=== PATIENT | male | born 1975 | race Two or more races ===

== ENCOUNTER 2016-03-22 15:51 | Emergency (ER) | payer OTHER ==
[~2016-03-22] VITALS: Ht 170.2 cm; Wt 99.8 kg
[~2016-03-22 15:51] MED LIST: ALPR2TAB2 PO; AMLO10TA2 PO; ASPI-231 PO; BACL10TA PO; BENZ1TAB2 PO; BUSP15TA60 PO; FENO160T8 PO; LORA2TAB10 PO; METO10TA3 PO; OMEP20TA PO; PRED-188 PO
[2016-03-22 16:10] VITALS: BP 182/101
[2016-03-22] MEDS ORDERED: ALPRAZolam 0.5 MG TAB PO ONE (17:15)
[2016-03-22 17:37] LABS: Basophils # (auto) 0 uL; Basophils % (auto) 0.5 % (0.0-2.0); Eosinophils # (auto) 0 uL; Eosinophils % (auto) 0.5 % (0.0-7.0); Hematocrit 41.4 % (41.0-53.0); Hemoglobin 13.9 g/dL (13.5-17.5); Lymphocytes # (auto) 2.2 uL; Mean Corpuscular Hemoglobin 28.9 pg (28.0-32.0); Mean Corpuscular Hgb Conc. 33.4 g/dL (32.0-36.0); Mean Corpuscular Volume 86.6 fL (80.0-100.0); Mean Platelet Volume 7.8 fL (7.4-10.4); Monocytes # (auto) 0.5 uL; Monocytes % (auto) 6.3 % (0.0-12.0); Neutrophils # (auto) 5.3 uL; Neutrophils % (auto) 65.7 % (37.0-80.0); Platelet Count (auto) 285 10^3/uL (140-450); Red Cell Distribution Width 11.6 % (11.6-16.0)
[2016-03-22 17:43] LABS: Albumin 4.2 g/dL (3.4-5.0); BUN/Creatinine Ratio 14.9; Bilirubin, Total 0.2 mg/dL (0.2-1.0); Calcium 9.6 mg/dL (8.5-10.1); Potassium 3.7 mmol/L (3.5-5.1); Total Protein 7.5 g/dL (6.4-8.2)
== END 2016-03-22 19:33 | disposition home or self-care (01) ==
LOC: EDUNIT# 15:51 → ER 16:01
DX: F41.9 Anxiety disorder, unspecified (principal); E11.9 Type 2 diabetes mellitus without complications; E78.5 Hyperlipidemia, unspecified; I10 Essential (primary) hypertension; F20.9 Schizophrenia, unspecified; F17.210 Nicotine dependence, cigarettes, uncomplicated; F12.10 Cannabis abuse, uncomplicated; Z79.82 Long term (current) use of aspirin
CPT/HCPCS: 36415; 80053; 84484; 85025; 93005

== ENCOUNTER 2016-06-08 15:33 | Observation (INO) | payer OTHER ==
[~2016-06-08] VITALS: Ht 162.6 cm; Wt 99.8 kg
[2016-06-08 17:10] LABS: Basophils # (auto) 0 uL; Basophils % (auto) 0.3 % (0.0-2.0); Eosinophils # (auto) 0.3 uL; Eosinophils % (auto) 3.9 % (0.0-7.0); Hematocrit 42.2 % (41.0-53.0); Hemoglobin 14.2 g/dL (13.5-17.5); Lymphocytes # (auto) 2.2 uL; Lymphocytes % (auto) 31.1 % (10.0-50.0); Mean Corpuscular Hemoglobin 28.4 pg (28.0-32.0); Mean Corpuscular Hgb Conc. 33.7 g/dL (32.0-36.0); Mean Corpuscular Volume 84.2 fL (80.0-100.0); Mean Platelet Volume 8.9 fL (7.4-10.4); Monocytes # (auto) 0.3 uL; Monocytes % (auto) 4.3 % (0.0-12.0); Neutrophils # (auto) 4.2 uL; Neutrophils % (auto) 60.4 % (37.0-80.0); Platelet Count (auto) 248 10^3/uL (140-450); Red Cell Distribution Width 13.6 % (11.6-16.0); White Blood Cell 6.9 10^3/uL (4.4-10.8)
[2016-06-08 17:15] LABS: Albumin 3.9 g/dL (3.4-5.0); BUN/Creatinine Ratio 10.3; Bilirubin, Total 0.2 mg/dL (0.2-1.0); Calcium 8.8 mg/dL (8.5-10.1)
[2016-06-08] MEDS ORDERED: LEVETIRACETAM 500 MG TAB PO ONE (22:00)
[2016-06-08] MEDS ORDERED: LEVE500T22 PO (22:10)
[2016-06-08 22:17] VITALS: BP 147/94
== END 2016-06-08 22:22 | disposition home or self-care (01) | DRG 101 ==
LOC: EDBD 15:33 → ER 15:33 → OVERFLOW 20:12 → ER 22:21
PROVIDERS: ADMIT Family Medicine; ATTEND Family Medicine
DX: G40.909 Epilepsy, unspecified, not intractable, without status epilepticus (principal); R79.89 Other specified abnormal findings of blood chemistry; F10.10 Alcohol abuse, uncomplicated; R73.9 Hyperglycemia, unspecified; I67.2 Cerebral atherosclerosis; F17.210 Nicotine dependence, cigarettes, uncomplicated; Z82.49 Family history of ischemic heart disease and other diseases of the circulatory system; Z83.0 Family history of human immunodeficiency virus [HIV] disease; F20.9 Schizophrenia, unspecified; I10 Essential (primary) hypertension; K21.9 Gastro-esophageal reflux disease without esophagitis
CPT/HCPCS: 36415; 70450; 71010; 80053; 82542; 82962; 85025; 93005; 99285; G0378

== ENCOUNTER 2016-06-19 16:56 | Emergency (ER) | payer OTHER ==
[~2016-06-19] VITALS: Ht 162.6 cm; Wt 90.7 kg
[~2016-06-19 16:56] MED LIST changes: +LEVE500T22 PO
[2016-06-19 17:50] LABS: Basophils # (auto) 0.1 uL; Basophils % (auto) 0.6 % (0.0-2.0); Eosinophils # (auto) 0.2 uL; Eosinophils % (auto) 2.5 % (0.0-7.0); Hematocrit 39.2 % (41.0-53.0); Hemoglobin 13.3 g/dL (13.5-17.5); Lymphocytes # (auto) 3.1 uL; Lymphocytes % (auto) 31.3 % (10.0-50.0); Mean Corpuscular Hemoglobin 28.2 pg (28.0-32.0); Mean Corpuscular Hgb Conc. 33.9 g/dL (32.0-36.0); Mean Platelet Volume 8.3 fL (7.4-10.4); Monocytes # (auto) 0.5 uL; Monocytes % (auto) 4.8 % (0.0-12.0); Neutrophils % (auto) 60.8 % (37.0-80.0); Platelet Count (auto) 226 10^3/uL (140-450); Red Cell Distribution Width 13.1 % (11.6-16.0); White Blood Cell 9.9 10^3/uL (4.4-10.8)
[2016-06-19 18:23] LABS: Albumin 3.7 g/dL (3.4-5.0); Alkaline Phosphatase 95 U/L (45-117); Anion Gap 10 (5-15); Aspartate Aminotransferase 18 U/L (15-37); BUN/Creatinine Ratio 11.9; Bilirubin, Total 0.2 mg/dL (0.2-1.0); Blood Urea Nitrogen 14 mg/dL (7-18); Calcium 8.8 mg/dL (8.5-10.1); Carbon Dioxide 24 mmol/L (21-32); Chloride 105 mmol/L (98-107); GFR African American 87 mL/min; GFR Non-African American 72 mL/min; Glucose 106 mg/dL (74-106); Potassium 3.9 mmol/L (3.5-5.1); Sodium 139 mmol/L (136-145); Total Protein 6.8 g/dL (6.4-8.2)
[2016-06-19] MEDS ORDERED: LORazepam 2MG/ML-1ML VIAL IV ONE (19:30)
[2016-06-19] MEDS ORDERED: cloNIDine HCL 0.1 MG TAB ONE (19:30)
[2016-06-19] MEDS ORDERED: cloNIDine HCL 0.1 MG TAB PO ONE (19:45)
[2016-06-19 22:26] VITALS: BP 154/94
== END 2016-06-19 23:38 | disposition home or self-care (01) ==
LOC: ER 16:56
DX: F41.9 Anxiety disorder, unspecified (principal); R51 Headache; I10 Essential (primary) hypertension; E78.5 Hyperlipidemia, unspecified; K21.9 Gastro-esophageal reflux disease without esophagitis; F17.210 Nicotine dependence, cigarettes, uncomplicated; F12.10 Cannabis abuse, uncomplicated
CPT/HCPCS: 36415; 71020; 80053; 80320; 84484; 85025; 85379; 93005; 96374; 99285; J2060

== ENCOUNTER 2016-10-10 19:10 | Inpatient (IN) | payer OTHER ==
[~2016-10-10] VITALS: Ht 162.6 cm; Wt 83.4 kg
[2016-10-10 19:50] LABS: Basophils # (auto) 0 uL; Basophils % (auto) 0.3 % (0.0-2.0); CONDITION Y; Eosinophils # (auto) 0.2 uL; Eosinophils % (auto) 1.6 % (0.0-7.0); Hematocrit 42.5 % (41.0-53.0); Hemoglobin 14.7 g/dL (13.5-17.5); Lymphocytes # (auto) 4.2 uL; Mean Corpuscular Hemoglobin 30.4 pg (28.0-32.0); Mean Corpuscular Hgb Conc. 34.6 g/dL (32.0-36.0); Mean Corpuscular Volume 87.9 fL (80.0-100.0); Mean Platelet Volume 8.3 fL (7.4-10.4); Monocytes # (auto) 0.9 uL; Neutrophils # (auto) 7.3 uL; Neutrophils % (auto) 58.1 % (37.0-80.0); Platelet Count (auto) 355 10^3/uL (140-450); Red Cell Distribution Width 13.4 % (11.6-16.0); White Blood Cell 12.6 10^3/uL (4.4-10.8)
[2016-10-10 20:06] LABS: Albumin 3.9 g/dL (3.4-5.0); Alkaline Phosphatase 71 U/L (45-117); Anion Gap 9 (5-15); Aspartate Aminotransferase 10 U/L (15-37); BUN/Creatinine Ratio 15.6; Bilirubin, Total 0.2 mg/dL (0.2-1.0); Blood Urea Nitrogen 26 mg/dL (7-18); Calcium 8.7 mg/dL (8.5-10.1); Carbon Dioxide 22 mmol/L (21-32); Chloride 102 mmol/L (98-107); GFR African American 58 mL/min; GFR Non-African American 48 mL/min; Glucose 108 mg/dL (74-106); Magnesium 1.9 mg/dL (1.6-2.6); Potassium 4.4 mmol/L (3.5-5.1); Sodium 133 mmol/L (136-145); Total Protein 7.2 g/dL (6.4-8.2)
[2016-10-10 20:09] LABS: B-Type Natriuretic Peptide 153.78 pg/mL (0-100)
[2016-10-10 20:10] LABS: Temperature: 23.5 C (20.0-25.0)
[2016-10-11] MEDS ORDERED: NITROGLYCERIN 2% OINT 1GM PKG TD ONE (00:45)
[2016-10-11] MEDS ORDERED: ASPirin 81 mg TAB PO ONE (00:45)
[2016-10-11 01:36] LABS: Urine Bilirubin Negative (Negative); Urine Blood Negative /uL (Negative); Urine Color Yellow (Yellow); Urine Glucose Normal (Normal); Urine Ketone Negative (Negative); Urine Nitrite Negative (Negative); Urine RBC <1 /hpf (0 - 3); Urine Urobilinogen Normal (Negative)
[2016-10-11] MEDS ORDERED: FUROSEMIDE 20 MG/2 ML VIAL IV ONE (03:30)
[2016-10-11] MEDS ORDERED: ALPRAZolam 0.5 MG TAB PO PRN (06:00)
[2016-10-11] MEDS ORDERED: ACETAMINOPHEN 325 MG TAB PO PRN (06:00)
[2016-10-11] MEDS ORDERED: ONDANSETRON HCL 4 MG/2 ML VIAL IV PRN (06:00)
[2016-10-11] MEDS ORDERED: NITROGLYCERIN 0.4 MG SL TAB SL PRN (06:00)
[2016-10-11] MEDS ORDERED: MORPHINE SULF INJ 2 MG/ML SYRINGE 1ML IV PRN (06:00)
[2016-10-11] MEDS ORDERED: HYDROcodone-ACET 5/325MG TAB PO PRN (06:00)
[2016-10-11 07:14] LABS: Cholesterol 212 mg/dL (< 200); HDL Cholesterol 27 mg/dL (40-59); LDL Cholesterol 122 mg/dL (< 100); Triglycerides 381 mg/dL (< 150)
[2016-10-11 07:34] VITALS: BP 134/80
[2016-10-11] MEDS ORDERED: ASPirin 81 mg TAB PO SCH (10:00)
[2016-10-11] MEDS ORDERED: amLODIPine BESYLATE 5 MG TAB PO SCH (10:00)
[2016-10-11] MEDS ORDERED: LEVETIRACETAM 500 MG TAB PO SCH (10:00)
[2016-10-11] MEDS ORDERED: FAMOTIDINE 20 MG TAB PO SCH (10:00)
[2016-10-11] MEDS ORDERED: FENOFIBRATE 160MG PO SCH (10:00)
[2016-10-11] MEDS ORDERED: ENOXAPARIN SOD 40 MG/0.4 ML SYRINGE SC SCH (10:00)
[2016-10-11] MEDS ORDERED: FENOFIBRATE 160 MG PO SCH (10:00)
== END 2016-10-11 18:45 | disposition home or self-care (01) | DRG 313 ==
LOC: ER 19:14 → TELE 19:15 → TELE-E-ADS 10-11 08:20 → TELE-EAST 10-11 16:00
PROVIDERS: ADMIT Nurse Practitioner; ATTEND Internal Medicine Geriatric Medicine
DX: R07.89 Other chest pain (principal); I13.0 Hypertensive heart and chronic kidney disease with heart failure and stage 1 through stage 4 chronic kidney disease, or unspecified chronic kidney disease; E66.9 Obesity, unspecified; E78.5 Hyperlipidemia, unspecified; E88.81 Metabolic syndrome and other insulin resistance; F12.90 Cannabis use, unspecified, uncomplicated; F17.210 Nicotine dependence, cigarettes, uncomplicated; F20.9 Schizophrenia, unspecified; I50.9 Heart failure, unspecified; K21.9 Gastro-esophageal reflux disease without esophagitis; N18.3 Chronic kidney disease, stage 3 (moderate); F41.9 Anxiety disorder, unspecified; Z83.0 Family history of human immunodeficiency virus [HIV] disease; Z83.3 Family history of diabetes mellitus; Z82.49 Family history of ischemic heart disease and other diseases of the circulatory system; Z79.899 Other long term (current) drug therapy; Z79.82 Long term (current) use of aspirin; Z68.31 Body mass index [BMI] 31.0-31.9, adult
CPT/HCPCS: 36415; 71010; 80053; 80061; 80307; 81001; 83735; 83880; 84484; 85025; 85379; 93005; 93017; 93306; 96374; J2405

== ENCOUNTER 2016-10-22 17:32 | Inpatient (IN) | payer OTHER ==
[~2016-10-22] VITALS: Ht 157.5 cm; Wt 81.6 kg
[2016-10-22 18:38] LABS: Basophils # (auto) 0 uL; Basophils % (auto) 0.5 % (0.0-2.0); CONDITION Y; Eosinophils # (auto) 0.2 uL; Eosinophils % (auto) 2.4 % (0.0-7.0); Hematocrit 37.8 % (41.0-53.0); Hemoglobin 13.3 g/dL (13.5-17.5); Lymphocytes # (auto) 3.8 uL; Mean Corpuscular Hemoglobin 30.1 pg (28.0-32.0); Mean Corpuscular Volume 85.9 fL (80.0-100.0); Mean Platelet Volume 8.1 fL (7.4-10.4); Monocytes # (auto) 0.7 uL; Monocytes % (auto) 6.8 % (0.0-12.0); Neutrophils # (auto) 5.4 uL; Neutrophils % (auto) 53.3 % (37.0-80.0); Platelet Count (auto) 254 10^3/uL (140-450); Red Cell Distribution Width 13.2 % (11.6-16.0); White Blood Cell 10.2 10^3/uL (4.4-10.8)
[2016-10-22 18:42] LABS: Urine RBC None Seen /hpf (0 - 3)
[2016-10-22 18:59] LABS: Urine Bilirubin Negative (Negative); Urine Blood Negative /uL (Negative); Urine Color Colorless (Yellow); Urine Glucose Normal (Normal); Urine Ketone Negative (Negative); Urine Nitrite Negative (Negative); Urine Urobilinogen Normal (Negative)
[2016-10-22 19:00] LABS: Albumin 3.5 g/dL (3.4-5.0); Anion Gap 10 (5-15); Aspartate Aminotransferase 12 U/L (15-37); BUN/Creatinine Ratio 8.7; Blood Urea Nitrogen 9 mg/dL (7-18); Carbon Dioxide 22 mmol/L (21-32); Chloride 95 mmol/L (98-107); GFR African American 101 mL/min; GFR Non-African American 84 mL/min; Glucose 95 mg/dL (74-106); Potassium 3.1 mmol/L (3.5-5.1); Sodium 127 mmol/L (136-145)
[2016-10-22 19:05] LABS: Alkaline Phosphatase 68 U/L (45-117); Bilirubin, Total 0.2 mg/dL (0.2-1.0); Total Protein 6.3 g/dL (6.4-8.2)
[2016-10-22] MEDS ORDERED: ASPirin 81 mg TAB PO ONE (19:45)
[2016-10-22] MEDS ORDERED: ONDANSETRON HCL 4 MG/2 ML VIAL IV ONE (20:15)
[2016-10-22] MEDS ORDERED: POTASSIUM CHL 20 Meq TABLET PO ONE (20:15)
[2016-10-22 20:39] LABS: INR 1.03 (0.9-1.15); Partial Thromboplastin Time 27.8 sec (22.64-33.71); Prothrombin Time 11.2 sec (9.37-12.3)
[2016-10-23] MEDS ORDERED: ONDANSETRON HCL 4 MG/2 ML VIAL IV PRN
[2016-10-23] MEDS ORDERED: TEMAZEPAM 15 MG CAP PO PRN
[2016-10-23] MEDS ORDERED: ACETAMINOPHEN 325 MG TAB PO PRN
[2016-10-23] MEDS ORDERED: MORPHINE SULF INJ 2 MG/ML SYRINGE 1ML IV PRN
[2016-10-23] MEDS ORDERED: NITROGLYCERIN 0.4 MG SL TAB SL PRN
[2016-10-23 00:45] VITALS: BP 133/70
[2016-10-23] MEDS: HYDROcodone-ACET 5/325MG TAB PO PRN ×2 (01:25→05:21)
[2016-10-23 05:00] VITALS: BP 134/85
[2016-10-23 05:28] LABS: Basophils # (auto) 0 uL; Basophils % (auto) 0.3 % (0.0-2.0); CONDITION Y; Eosinophils # (auto) 0.2 uL; Eosinophils % (auto) 2.7 % (0.0-7.0); Hematocrit 36.9 % (41.0-53.0); Hemoglobin 13.1 g/dL (13.5-17.5); Lymphocytes # (auto) 2.6 uL; Lymphocytes % (auto) 39.9 % (10.0-50.0); Mean Corpuscular Hemoglobin 30.3 pg (28.0-32.0); Mean Corpuscular Hgb Conc. 35.4 g/dL (32.0-36.0); Mean Corpuscular Volume 85.6 fL (80.0-100.0); Mean Platelet Volume 8.2 fL (7.4-10.4); Monocytes # (auto) 0.5 uL; Monocytes % (auto) 7.4 % (0.0-12.0); Neutrophils # (auto) 3.3 uL; Neutrophils % (auto) 49.7 % (37.0-80.0); Platelet Count (auto) 250 10^3/uL (140-450); Red Cell Distribution Width 13.1 % (11.6-16.0); White Blood Cell 6.6 10^3/uL (4.4-10.8)
[2016-10-23 06:00] LABS: Chloride 104 mmol/L (98-107); Potassium 3.7 mmol/L (3.5-5.1); Sodium 136 mmol/L (136-145)
[2016-10-23 06:09] LABS: Albumin 3.5 g/dL (3.4-5.0); Anion Gap 8 (5-15); Aspartate Aminotransferase 13 U/L (15-37); BUN/Creatinine Ratio 8.4; Blood Urea Nitrogen 10 mg/dL (7-18); Calcium 8.5 mg/dL (8.5-10.1); Carbon Dioxide 24 mmol/L (21-32); GFR African American 86 mL/min; GFR Non-African American 71 mL/min; Glucose 78 mg/dL (74-106)
[2016-10-23 06:16] LABS: Alkaline Phosphatase 63 U/L (45-117); Bilirubin, Total 0.2 mg/dL (0.2-1.0); Total Protein 6.2 g/dL (6.4-8.2)
[2016-10-23 09:22] VITALS: BP 126/75
[2016-10-23] MEDS ORDERED: LEVETIRACETAM 500 MG TAB PO SCH (10:00)
[2016-10-23] MEDS ORDERED: ENOXAPARIN SOD 40 MG/0.4 ML SYRINGE SC SCH (10:00)
[2016-10-23] MEDS ORDERED: ASPirin 81 mg TAB PO SCH (10:00)
[2016-10-23] MEDS ORDERED: predniSONE 20 MG TAB PO SCH (10:00)
[2016-10-23] MEDS ORDERED: FAMOTIDINE 20 MG TAB PO SCH (10:00)
[2016-10-23] MEDS ORDERED: busPIRone HCL 10 MG TAB PO SCH (10:00)
[2016-10-23] MEDS ORDERED: amLODIPine BESYLATE 5 MG TAB PO SCH (10:00)
[2016-10-23 10:40] VITALS: BP 126/75
== END 2016-10-23 11:45 | disposition home or self-care (01) | DRG 313 ==
LOC: ER 17:34 → TELE 17:35 → TELE-WESTW 10-23 00:19
PROVIDERS: ADMIT Nurse Practitioner; ATTEND Nurse Practitioner
DX: R07.89 Other chest pain (principal); E87.1 Hypo-osmolality and hyponatremia; I10 Essential (primary) hypertension; E66.9 Obesity, unspecified; E78.5 Hyperlipidemia, unspecified; E87.6 Hypokalemia; F12.90 Cannabis use, unspecified, uncomplicated; F17.210 Nicotine dependence, cigarettes, uncomplicated; F20.9 Schizophrenia, unspecified; F32.9 Major depressive disorder, single episode, unspecified; F41.9 Anxiety disorder, unspecified; K21.9 Gastro-esophageal reflux disease without esophagitis; Z82.49 Family history of ischemic heart disease and other diseases of the circulatory system; Z83.0 Family history of human immunodeficiency virus [HIV] disease; Z80.9 Family history of malignant neoplasm, unspecified; Z83.3 Family history of diabetes mellitus; Z79.82 Long term (current) use of aspirin; Z79.899 Other long term (current) drug therapy; Z68.32 Body mass index [BMI] 32.0-32.9, adult
CPT/HCPCS: 36415; 71010; 80053; 80307; 81001; 83735; 84443; 84484; 85025; 85379; 85610; 85730; 94761; 96372; 96374; J2405

== ENCOUNTER 2016-12-02 03:26 | Emergency (ER) | payer OTHER ==
[~2016-12-02] VITALS: Ht 167.6 cm; Wt 81.6 kg
[2016-12-02 04:18] LABS: Basophils # (auto) 0.1 uL; Basophils % (auto) 0.5 % (0.0-2.0); Eosinophils # (auto) 0.1 uL; Eosinophils % (auto) 0.8 % (0.0-7.0); Hemoglobin 15.5 g/dL (13.5-17.5); Lymphocytes # (auto) 2.9 uL; Lymphocytes % (auto) 29.6 % (10.0-50.0); Mean Corpuscular Hgb Conc. 36.1 g/dL (32.0-36.0); Mean Corpuscular Volume 83.1 fL (80.0-100.0); Mean Platelet Volume 7.4 fL (6.9-10.8); Monocytes # (auto) 0.5 uL; Monocytes % (auto) 5.2 % (0.0-12.0); Neutrophils # (auto) 6.2 uL; Neutrophils % (auto) 63.9 % (37.0-80.0); Platelet Count (auto) 296 10^3/uL (140-450); Red Cell Distribution Width 13.2 % (11.8-14.3); White Blood Cell 9.7 10^3/uL (4.4-10.8)
[2016-12-02 04:32] LABS: Acetaminophen < 2.0 ug/mL (10-30); Salicylate < 1.7 mg/dL (2.8-20.0)
[2016-12-02 04:34] LABS: Albumin 3.8 g/dL (3.4-5.0); Anion Gap 11 (5-15); Aspartate Aminotransferase 15 U/L (15-37); BUN/Creatinine Ratio 10.4; Blood Urea Nitrogen 12 mg/dL (7-18); Calcium 9.3 mg/dL (8.5-10.1); Carbon Dioxide 23 mmol/L (21-32); Chloride 104 mmol/L (98-107); GFR African American 89 mL/min; GFR Non-African American 74 mL/min; Glucose 132 mg/dL (74-106); Potassium 3.7 mmol/L (3.5-5.1); Sodium 138 mmol/L (136-145)
[2016-12-02 04:37] LABS: Alkaline Phosphatase 88 U/L (45-117); Bilirubin, Total 0.3 mg/dL (0.2-1.0); Total Protein 6.6 g/dL (6.4-8.2)
[2016-12-02] MEDS ORDERED: SODIUM CHLORIDE 0.9% 1,000 ML IV ONE (04:45)
[2016-12-02] MEDS ORDERED: ALUM & MAG HYDROX-SIMETH LIQ(MAALOX) 30 ML PO ONE (04:45)
[2016-12-02] MEDS ORDERED: FAMOTIDINE (10MG/ML) 2ML VL IV ONE (04:45)
[2016-12-02 05:32] LABS: Urine Bilirubin Negative (Negative); Urine Blood Negative /uL (Negative); Urine Glucose Normal (Normal); Urine Ketone Negative (Negative); Urine Nitrite Negative (Negative); Urine RBC <1 /hpf (0 - 3); Urine Squamous Epithelial Cell FEW /hpf (<5); Urine Urobilinogen Normal (Negative); Urine pH 6.5 (5.0-8.0)
[2016-12-02 05:33] LABS: Urine Color Straw (Yellow)
[2016-12-02 06:36] VITALS: BP 137/74
== END 2016-12-02 07:00 | disposition home or self-care (01) ==
LOC: EDBD 03:26 → ER 03:29
DX: K29.20 Alcoholic gastritis without bleeding (principal); I10 Essential (primary) hypertension; E78.5 Hyperlipidemia, unspecified; F17.210 Nicotine dependence, cigarettes, uncomplicated; F12.10 Cannabis abuse, uncomplicated; Z79.899 Other long term (current) drug therapy
CPT/HCPCS: 36415; 80053; 80307; 80320; 80329; 81001; 83690; 85025; 93005; 96361; 96374; 99285; J3490; J7030

== ENCOUNTER 2016-12-16 12:46 | Emergency (ER) | payer OTHER ==
[~2016-12-16] VITALS: Ht 160 cm; Wt 88.0 kg
[2016-12-16 13:53] LABS: Basophils # (auto) 0 uL; Basophils % (auto) 0.4 % (0.0-2.0); Eosinophils # (auto) 0.1 uL; Eosinophils % (auto) 1.1 % (0.0-7.0); Hematocrit 40.5 % (41.0-53.0); Hemoglobin 14.4 g/dL (13.5-17.5); Lymphocytes # (auto) 3.2 uL; Lymphocytes % (auto) 30.8 % (10.0-50.0); Mean Corpuscular Hemoglobin 29.6 pg (28.0-32.0); Mean Corpuscular Hgb Conc. 35.5 g/dL (32.0-36.0); Mean Corpuscular Volume 83.5 fL (80.0-100.0); Mean Platelet Volume 7.4 fL (6.9-10.8); Monocytes # (auto) 0.6 uL; Monocytes % (auto) 6.1 % (0.0-12.0); Neutrophils # (auto) 6.4 uL; Neutrophils % (auto) 61.6 % (37.0-80.0); Nucleated Red Blood Cells % 0.9 %; Platelet Count (auto) 296 10^3/uL (140-450); White Blood Cell 10.5 10^3/uL (4.4-10.8)
[2016-12-16 14:46] LABS: Albumin 3.8 g/dL (3.4-5.0); Anion Gap 9 (5-15); Aspartate Aminotransferase 14 U/L (15-37); Blood Urea Nitrogen 15 mg/dL (7-18); Carbon Dioxide 25 mmol/L (21-32); Chloride 100 mmol/L (98-107); GFR African American 105 mL/min; GFR Non-African American 87 mL/min; Glucose 134 mg/dL (74-106); Sodium 134 mmol/L (136-145)
[2016-12-16 14:52] LABS: Alkaline Phosphatase 72 U/L (45-117); Bilirubin, Total 0.2 mg/dL (0.2-1.0); Total Protein 6.7 g/dL (6.4-8.2)
[2016-12-16 19:28] VITALS: BP 112/64
== END 2016-12-16 19:38 | disposition home or self-care (01) ==
LOC: ER 12:46
DX: R07.89 Other chest pain (principal); J02.9 Acute pharyngitis, unspecified; K21.9 Gastro-esophageal reflux disease without esophagitis; E78.5 Hyperlipidemia, unspecified; F31.9 Bipolar disorder, unspecified; F41.9 Anxiety disorder, unspecified; I10 Essential (primary) hypertension; F17.210 Nicotine dependence, cigarettes, uncomplicated; Z79.899 Other long term (current) drug therapy; Z79.82 Long term (current) use of aspirin
CPT/HCPCS: 36415; 71020; 80053; 84484; 85025; 93005

== ENCOUNTER 2016-12-22 19:25 | Emergency (ER) | payer OTHER ==
[~2016-12-22] VITALS: Ht 157.5 cm; Wt 63.5 kg
[2016-12-22 20:30] LABS: Basophils # (auto) 0.1 uL; Basophils % (auto) 0.9 % (0.0-2.0); Eosinophils # (auto) 0.2 uL; Eosinophils % (auto) 3.2 % (0.0-7.0); Hematocrit 38.9 % (41.0-53.0); Hemoglobin 13.9 g/dL (13.5-17.5); Lymphocytes # (auto) 2.9 uL; Lymphocytes % (auto) 38.4 % (10.0-50.0); Mean Corpuscular Hemoglobin 29.6 pg (28.0-32.0); Mean Corpuscular Hgb Conc. 35.8 g/dL (32.0-36.0); Mean Corpuscular Volume 82.7 fL (80.0-100.0); Mean Platelet Volume 6.6 fL (6.9-10.8); Monocytes # (auto) 0.5 uL; Monocytes % (auto) 6.7 % (0.0-12.0); Neutrophils # (auto) 3.8 uL; Neutrophils % (auto) 50.8 % (37.0-80.0); Platelet Count (auto) 263 10^3/uL (140-450); Red Cell Distribution Width 13.9 % (11.8-14.3); White Blood Cell 7.5 10^3/uL (4.4-10.8)
[2016-12-22 20:53] LABS: Albumin 3.8 g/dL (3.4-5.0); BUN/Creatinine Ratio 12.4; Bilirubin, Total 0.2 mg/dL (0.2-1.0); Calcium 8.5 mg/dL (8.5-10.1); Total Protein 7.2 g/dL (6.4-8.2)
[2016-12-22 20:59] LABS: Potassium 2.9 mmol/L (3.5-5.1)
[2016-12-23 04:10] VITALS: BP 147/98
[2016-12-23 04:43] LABS: Albumin 3.7 g/dL (3.4-5.0); BUN/Creatinine Ratio 11.4; Potassium 3.9 mmol/L (3.5-5.1)
[2016-12-23 04:45] LABS: Bilirubin, Total 0.4 mg/dL (0.2-1.0); Total Protein 6.8 g/dL (6.4-8.2)
== END 2016-12-23 05:10 | disposition home or self-care (01) ==
LOC: ER 19:34
DX: R51 Headache (principal); E87.6 Hypokalemia; E87.1 Hypo-osmolality and hyponatremia
CPT/HCPCS: 36415; 80053; 85025

== ENCOUNTER 2017-01-14 20:43 | Emergency (ER) | payer OTHER ==
[~2017-01-14] VITALS: Ht 162.6 cm; Wt 117.9 kg
[2017-01-14 21:26] LABS: Basophils # (auto) 0 uL; Basophils % (auto) 0.2 % (0.0-2.0); Eosinophils # (auto) 0 uL; Eosinophils % (auto) 0.2 % (0.0-7.0); Hematocrit 38.8 % (41.0-53.0); Hemoglobin 13.5 g/dL (13.5-17.5); Lymphocytes # (auto) 3.9 uL; Lymphocytes % (auto) 27.9 % (10.0-50.0); Mean Corpuscular Hgb Conc. 34.8 g/dL (32.0-36.0); Mean Corpuscular Volume 86.1 fL (80.0-100.0); Monocytes % (auto) 7.3 % (0.0-12.0); Neutrophils % (auto) 64.4 % (37.0-80.0); Platelet Count (auto) 272 10^3/uL (140-450); Red Blood Cells 4.51 10^6/uL (4.5-5.90); Red Cell Distribution Width 14.2 % (11.8-14.3); White Blood Cell 14.1 10^3/uL (4.4-10.8)
[2017-01-14 21:36] LABS: INR 1.03 (0.9-1.15); Partial Thromboplastin Time 23.8 sec (22.64-33.71); Prothrombin Time 11.2 sec (9.37-12.3)
[2017-01-14 21:37] LABS: Alanine Aminotransferase 34 U/L (16-61); Albumin 3.7 g/dL (3.4-5.0); Anion Gap 11 (5-15); Aspartate Aminotransferase 15 U/L (15-37); BUN/Creatinine Ratio 12.5; Blood Urea Nitrogen 17 mg/dL (7-18); Calcium 8.8 mg/dL (8.5-10.1); Carbon Dioxide 19 mmol/L (21-32); Chloride 97 mmol/L (98-107); GFR African American 74 mL/min; GFR Non-African American 61 mL/min; Glucose 166 mg/dL (74-106); Potassium 3.6 mmol/L (3.5-5.1); Sodium 127 mmol/L (136-145)
[2017-01-14 21:41] LABS: Alkaline Phosphatase 67 U/L (45-117); Bilirubin, Total 0.2 mg/dL (0.2-1.0); Total Protein 6.8 g/dL (6.4-8.2)
[2017-01-15 07:37] VITALS: BP 157/90
[2017-01-15] MEDS ORDERED: FLUORESCEIN SOD 1 MG TEST STRIP EACHEYE ONE (08:00)
[2017-01-15] MEDS ORDERED: TETRACAINE HCL 0.5% OPTH(EYE) SOLN 4ML EACHEYE ONE (08:00)
== END 2017-01-15 09:59 | disposition home or self-care (01) ==
LOC: ER 20:43 → OVERFLOW 20:44 → UNDOADMIN 20:44 → ER 01-15 09:59
DX: R07.89 Other chest pain (principal); H10.213 Acute toxic conjunctivitis, bilateral; E11.9 Type 2 diabetes mellitus without complications; G40.909 Epilepsy, unspecified, not intractable, without status epilepticus; F17.210 Nicotine dependence, cigarettes, uncomplicated; F12.10 Cannabis abuse, uncomplicated; K21.9 Gastro-esophageal reflux disease without esophagitis; E78.5 Hyperlipidemia, unspecified; I10 Essential (primary) hypertension; Z79.899 Other long term (current) drug therapy
CPT/HCPCS: 36415; 71020; 80053; 83880; 84484; 85025; 85610; 85730; 93005

== ENCOUNTER 2017-01-30 21:08 | Emergency (ER) | payer OTHER ==
[~2017-01-30] VITALS: Ht 157.5 cm; Wt 90.7 kg
[2017-01-30 21:33] VITALS: BP 169/100
[2017-01-30 21:53] LABS: Basophils # (auto) 0.1 uL; Basophils % (auto) 0.8 % (0.0-2.0); Eosinophils # (auto) 0.2 uL; Eosinophils % (auto) 2.4 % (0.0-7.0); Hematocrit 37.3 % (41.0-53.0); Hemoglobin 13.2 g/dL (13.5-17.5); Lymphocytes # (auto) 3.6 uL; Lymphocytes % (auto) 39.1 % (10.0-50.0); Mean Corpuscular Hemoglobin 30.3 pg (28.0-32.0); Mean Corpuscular Hgb Conc. 35.3 g/dL (32.0-36.0); Mean Corpuscular Volume 85.8 fL (80.0-100.0); Monocytes # (auto) 0.7 uL; Monocytes % (auto) 7.6 % (0.0-12.0); Neutrophils # (auto) 4.6 uL; Neutrophils % (auto) 50.1 % (37.0-80.0); Nucleated Red Blood Cells % 0.1 %; Platelet Count (auto) 255 10^3/uL (140-450); Red Cell Distribution Width 13.7 % (11.8-14.3); White Blood Cell 9.1 10^3/uL (4.4-10.8)
[2017-01-30 22:07] LABS: Acetaminophen < 2.0 ug/mL (10-30); Salicylate 15.1 mg/dL (2.8-20.0)
[2017-01-30 22:11] LABS: Amylase 42 U/L (25-115); Magnesium 1.7 mg/dL (1.6-2.6)
[2017-01-30 23:00] LABS: Urine RBC None Seen /hpf (0 - 3)
[2017-01-30 23:14] LABS: Urine Bilirubin Negative (Negative); Urine Blood Negative /uL (Negative); Urine Glucose Normal (Normal); Urine Ketone Negative (Negative); Urine Nitrite Negative (Negative); Urine Urobilinogen Normal (Negative); Urine pH 5.5 (5.0-8.0)
[2017-01-30 23:19] LABS: Urine Color Straw (Yellow)
[2017-01-31] MEDS ORDERED: FAMOTIDINE (10MG/ML) 2ML VL IV ONE (01:00)
[2017-01-31] MEDS ORDERED: LORazepam 2MG/ML-1ML VIAL IV ONE (01:00)
[2017-01-31] MEDS ORDERED: cloNIDine HCL 0.1 MG TAB ONE (01:07)
[2017-01-31] MEDS ORDERED: cloNIDine HCL 0.1 MG TAB PO ONE (01:15)
== END 2017-01-31 01:28 | disposition home or self-care (01) ==
LOC: ER 21:09
DX: K29.00 Acute gastritis without bleeding (principal); F41.9 Anxiety disorder, unspecified; K21.9 Gastro-esophageal reflux disease without esophagitis; E78.5 Hyperlipidemia, unspecified; I10 Essential (primary) hypertension; F17.210 Nicotine dependence, cigarettes, uncomplicated; Z79.899 Other long term (current) drug therapy; Z79.82 Long term (current) use of aspirin
CPT/HCPCS: 36415; 71010; 74176; 80307; 80320; 80329; 81001; 82150; 83690; 83735; 84484; 85025; 93005; 94761; 96374; 96375; 99285; J3490

== ENCOUNTER → 2017-01-31 20:12 | Emergency (ER) | payer OTHER ==
[~2017-01-31] VITALS: Ht 157.5 cm; Wt 86.2 kg
[~2017-01-31 20:12] MED LIST changes: +AMMONIA 0.33 ML INHALANT IN ONE; +LORazepam 2MG/ML-1ML VIAL ONE; +SODIUM CHLORIDE 0.9% 1,000 ML IV ONE
[2017-01-31 20:59] LABS: Basophils # (auto) 0.1 uL; Basophils % (auto) 0.7 % (0.0-2.0); Eosinophils # (auto) 0.1 uL; Eosinophils % (auto) 1.7 % (0.0-7.0); Hematocrit 39.9 % (41.0-53.0); Hemoglobin 13.9 g/dL (13.5-17.5); Lymphocytes # (auto) 2.5 uL; Lymphocytes % (auto) 33.4 % (10.0-50.0); Mean Corpuscular Hgb Conc. 34.8 g/dL (32.0-36.0); Mean Corpuscular Volume 86.2 fL (80.0-100.0); Monocytes # (auto) 0.5 uL; Monocytes % (auto) 6.1 % (0.0-12.0); Neutrophils # (auto) 4.4 uL; Neutrophils % (auto) 58.1 % (37.0-80.0); Nucleated Red Blood Cells % 0.1 %; Platelet Count (auto) 292 10^3/uL (140-450); Red Cell Distribution Width 14.2 % (11.8-14.3); White Blood Cell 7.6 10^3/uL (4.4-10.8)
[2017-01-31 21:11] LABS: Albumin 3.6 g/dL (3.4-5.0); BUN/Creatinine Ratio 13.1; Bilirubin, Total 0.2 mg/dL (0.2-1.0); Calcium 8.5 mg/dL (8.5-10.1); Potassium 4.1 mmol/L (3.5-5.1); Total Protein 6.8 g/dL (6.4-8.2)
[2017-01-31 21:14] LABS: Magnesium 2.4 mg/dL (1.6-2.6)
[2017-01-31 22:03] LABS: B-Type Natriuretic Peptide 77.65 pg/mL (0-100)
[2017-01-31 22:05] LABS: Temperature: 21.9 C (20.0-25.0)
[2017-01-31 22:25] VITALS: BP 137/74
== END | disposition home or self-care (01) ==
LOC: ER 20:12
DX: G40.909 Epilepsy, unspecified, not intractable, without status epilepticus (principal); F17.210 Nicotine dependence, cigarettes, uncomplicated; F12.10 Cannabis abuse, uncomplicated; K21.9 Gastro-esophageal reflux disease without esophagitis; E78.5 Hyperlipidemia, unspecified; I10 Essential (primary) hypertension; Z91.14 Patient's other noncompliance with medication regimen
CPT/HCPCS: 36415; 70450; 80053; 82542; 82962; 83735; 83880; 84484; 85025; 93005; 96360; 96361; 99285; J2060; J7030

== ENCOUNTER 2017-03-20 18:40 | Inpatient (IN) | payer OTHER ==
[~2017-03-20] VITALS: Ht 160 cm; Wt 86.9 kg
[~2017-03-20 18:40] MED LIST changes: -AMMONIA 0.33 ML INHALANT IN ONE; -LORazepam 2MG/ML-1ML VIAL ONE; -SODIUM CHLORIDE 0.9% 1,000 ML IV ONE
[2017-03-20] MEDS ORDERED: SODIUM CHLORIDE 0.9% 1,000 ML IVB ONE (18:57)
[2017-03-20] MEDS ORDERED: LEVETIRACETAM INJ 1,000 MG in D5W 5% 100 ML IV ONE (19:00)
[2017-03-20 20:27] LABS: Basophils # (auto) 0 uL; Basophils % (auto) 0.4 % (0.0-2.0); Eosinophils # (auto) 0 uL; Eosinophils % (auto) 0.6 % (0.0-7.0); Hemoglobin 13.3 g/dL (13.5-17.5); Lymphocytes # (auto) 2.1 uL; Mean Corpuscular Hemoglobin 29.9 pg (28.0-32.0); Mean Corpuscular Hgb Conc. 35.8 g/dL (32.0-36.0); Mean Corpuscular Volume 83.5 fL (80.0-100.0); Monocytes # (auto) 0.4 uL; Monocytes % (auto) 5.3 % (0.0-12.0); Neutrophils # (auto) 4.7 uL; Neutrophils % (auto) 64.7 % (37.0-80.0); Platelet Count (auto) 262 10^3/uL (140-450); Red Blood Cells 4.44 10^6/uL (4.5-5.90); Red Cell Distribution Width 13.4 % (11.8-14.3); White Blood Cell 7.2 10^3/uL (4.4-10.8)
[2017-03-20] MEDS ORDERED: LORazepam 2MG/ML-1ML VIAL IV ONE (21:00)
[2017-03-20 21:05] LABS: BUN/Creatinine Ratio 9.9; Potassium 3.2 mmol/L (3.5-5.1)
[2017-03-20 21:06] LABS: Albumin 3.2 g/dL (3.4-5.0); Bilirubin, Total 0.5 mg/dL (0.2-1.0); Calcium 7.8 mg/dL (8.5-10.1)
[2017-03-20 21:07] LABS: Magnesium 2.1 mg/dL (1.6-2.6)
[2017-03-20] MEDS ORDERED: ACETAMINOPHEN 325 MG TAB PO PRN (22:45)
[2017-03-20] MEDS ORDERED: HYDROcodone-ACET 5/325MG TAB PO PRN (22:45)
[2017-03-20] MEDS ORDERED: ONDANSETRON HCL 4 MG/2 ML VIAL IV PRN (22:45)
[2017-03-20] MEDS ORDERED: chlordiazePOXIDE HCL 5 MG CAP PO PRN (22:45)
[2017-03-20] MEDS ORDERED: TEMAZEPAM 15 MG CAP PO PRN (22:45)
[2017-03-20] MEDS: SODIUM CHLORIDE 0.9% 1,000 ML IV SCH (22:45)
[2017-03-20] MEDS ORDERED: CALCIUM GLUC 4.65meq/50ml D5AE 50 ML IV ONE (23:00)
[2017-03-20] MEDS ORDERED: POTASSIUM CHL 20 Meq TABLET PO ONE (23:00)
[2017-03-21] MEDS ORDERED: CALCIUM GLUC 4.65 MEQ/10ML 10 ML IV ONE (00:49)
[2017-03-21 02:43] LABS: Amphetamine Screen, Urine NEGATIVE (NEGATIVE); Barbiturate Scree,Urine NEGATIVE (NEGATIVE); Benzodiazephine Screen, Urine POSITIVE (NEGATIVE); Cannabinoid Screen, Urine NEGATIVE (NEGATIVE); Cocaine Screen, Urine NEGATIVE (NEGATIVE); Opiate Scree,Urine NEGATIVE (NEGATIVE); Phencyclidine Screen, Urine NEGATIVE (NEGATIVE)
[2017-03-21] MEDS ORDERED: BENZOCAINE (DENTAL) 20 % SPRAY 60ML MT ONE ×2 (05:03→15:57)
[2017-03-21 06:30] LABS: Basophils # (auto) 0 uL; Basophils % (auto) 0.3 % (0.0-2.0); Eosinophils # (auto) 0.1 uL; Eosinophils % (auto) 0.9 % (0.0-7.0); Hematocrit 39.4 % (41.0-53.0); Lymphocytes # (auto) 2.7 uL; Lymphocytes % (auto) 41.5 % (10.0-50.0); Mean Corpuscular Hgb Conc. 35.6 g/dL (32.0-36.0); Mean Corpuscular Volume 84.3 fL (80.0-100.0); Monocytes # (auto) 0.4 uL; Monocytes % (auto) 6.8 % (0.0-12.0); Neutrophils # (auto) 3.3 uL; Neutrophils % (auto) 50.5 % (37.0-80.0); Nucleated Red Blood Cells % 0.1 %; Platelet Count (auto) 261 10^3/uL (140-450); Red Blood Cells 4.68 10^6/uL (4.5-5.90); Red Cell Distribution Width 13.4 % (11.8-14.3); White Blood Cell 6.5 10^3/uL (4.4-10.8)
[2017-03-21 06:39] LABS: Albumin 3.4 g/dL (3.4-5.0); BUN/Creatinine Ratio 15.7; Calcium 8.5 mg/dL (8.5-10.1); Potassium 3.7 mmol/L (3.5-5.1)
[2017-03-21 06:45] LABS: Bilirubin, Total 0.2 mg/dL (0.2-1.0); Total Protein 6.5 g/dL (6.4-8.2)
[2017-03-21] MEDS: MORPHINE SULF INJ 2 MG/ML SYRINGE 1ML IV PRN (09:23)
[2017-03-21] MEDS ORDERED: QUEtiapine FUMARATE 25 MG TAB PO SCH (10:00)
[2017-03-21] MEDS ORDERED: MULTIPLE VITAMIN TAB PO SCH (10:00)
[2017-03-21] MEDS ORDERED: LISINOPRIL 10 MG TAB PO SCH (10:00)
[2017-03-21] MEDS ORDERED: ATENOLOL 25 MG PO SCH (10:00)
[2017-03-21] MEDS ORDERED: FOLIC ACID 1 MG TAB PO SCH (10:00)
[2017-03-21] MEDS ORDERED: FAMOTIDINE 20 MG TAB PO SCH (10:00)
[2017-03-21] MEDS ORDERED: LEVETIRACETAM 500 MG TAB PO SCH (10:00)
[2017-03-21] MEDS ORDERED: ATENOLOL 25 MG TAB PO SCH (10:00)
[2017-03-21] MEDS ORDERED: THIAMINE HCL 100 MG TAB PO SCH (10:00)
[2017-03-21] MEDS: NICOTINE 21MG/24 HR TOPICAL PATCH TD SCH (10:08)
[2017-03-21] MEDS: ENOXAPARIN SOD 40 MG/0.4 ML SYRINGE SC SCH (10:08)
[2017-03-21] MEDS ORDERED: SODIUM CHLORIDE 0.9% 500 ML IV ONE (11:15)
[2017-03-21] MEDS ORDERED: POTASSIUM CHL 20MEQ/50ML 50 ML IV ONE (11:15)
[2017-03-21] MEDS ORDERED: hydrALAZINE HCL 20 MG/ML VL IV PRN (11:15)
[2017-03-21] MEDS ORDERED: LORazepam 2MG/ML-1ML VIAL IV PRN (11:15)
[2017-03-21] MEDS: LEVETIRACETAM INJ 500 MG in SODIUM CHL 0.9% 100 ML IV SCH ×2 (11:49→20:50)
[2017-03-21] MEDS ORDERED: THIAMINE INJ 100 MG, MULTIPLE VITAMIN 10 ML, FOLIC ACID 1 MG, MAGNESIUM SULF SDV 50% 8 ... IV SCH ×5 (12:00)
[2017-03-21] MEDS: METOPROLOL TARTRATE 1MG/1ML-5ML VIAL IV SCH ×3 (12:13→23:33)
[2017-03-21] MEDS: PANTOPRAZOLE 40 MG/10 ML VIAL IV SCH (12:14)
[2017-03-21 12:27] LABS: Urine WBC None Seen /hpf (0 - 3)
[2017-03-21 12:34] LABS: Urine Bacteria NONE SEEN /hpf (None Seen); Urine Blood Negative /uL (Negative); Urine Specific Gravity 1.007 (1.001-1.035)
[2017-03-21] MEDS: SODIUM CHLORIDE 0.9% 1,000 ML IV SCH (12:42)
[2017-03-21 22:00] VITALS: BP 163/91
[2017-03-21 22:30] VITALS: BP 163/91
[2017-03-22] MEDS: SODIUM CHLORIDE 0.9% 1,000 ML IV SCH ×2 (01:25→13:43)
[2017-03-22] MEDS ORDERED: PNEUMOCOCCAL VACC POLYS 25 MCG/0.5 ML VIAL IM ONE (04:45)
[2017-03-22] MEDS ORDERED: INFLUENZA QUAD 2017-2018 0.5 ML SYRG IM ONE (04:45)
[2017-03-22 04:58] VITALS: BP 178/97
[2017-03-22] MEDS: MORPHINE SULF INJ 2 MG/ML SYRINGE 1ML IV PRN (05:52)
[2017-03-22 06:14] LABS: Basophils # (auto) 0.1 uL; Basophils % (auto) 0.7 % (0.0-2.0); Eosinophils # (auto) 0 uL; Eosinophils % (auto) 0.4 % (0.0-7.0); Hemoglobin 13.3 g/dL (13.5-17.5); Lymphocytes % (auto) 19.2 % (10.0-50.0); Mean Corpuscular Hemoglobin 30.1 pg (28.0-32.0); Mean Corpuscular Hgb Conc. 35.1 g/dL (32.0-36.0); Mean Corpuscular Volume 85.8 fL (80.0-100.0); Monocytes # (auto) 0.8 uL; Monocytes % (auto) 7.6 % (0.0-12.0); Neutrophils # (auto) 7.4 uL; Neutrophils % (auto) 72.1 % (37.0-80.0); Platelet Count (auto) 225 10^3/uL (140-450); Red Blood Cells 4.43 10^6/uL (4.5-5.90); Red Cell Distribution Width 13.1 % (11.8-14.3); White Blood Cell 10.3 10^3/uL (4.4-10.8)
[2017-03-22] MEDS: METOPROLOL TARTRATE 1MG/1ML-5ML VIAL IV SCH (06:18)
[2017-03-22 06:31] LABS: INR 1.02 (0.9-1.15); Partial Thromboplastin Time 22.9 sec (22.64-33.71); Prothrombin Time 11.1 sec (9.37-12.3)
[2017-03-22 06:55] LABS: BUN/Creatinine Ratio 16.7; Potassium 3.9 mmol/L (3.5-5.1)
[2017-03-22 06:56] LABS: Albumin 3.3 g/dL (3.4-5.0); Bilirubin, Total 0.5 mg/dL (0.2-1.0); Calcium 8.7 mg/dL (8.5-10.1); Magnesium 2.1 mg/dL (1.6-2.6); Total Protein 6.5 g/dL (6.4-8.2)
[2017-03-22] MEDS ORDERED: LORazepam 0.5 MG TAB PO PRN (07:45)
[2017-03-22] MEDS ORDERED: cloNIDine HCL 0.1 MG TAB PO PRN (07:45)
[2017-03-22] MEDS ORDERED: LORazepam 0.5 MG TAB ONE ×2 (08:17→08:58)
[2017-03-22] MEDS ORDERED: METOPROLOL TARTRATE 50 MG TAB ONE ×3 (08:17→12:11)
[2017-03-22] MEDS: METOPROLOL TARTRATE 50 MG TAB PO SCH ×3 (08:29→21:29)
[2017-03-22] MEDS: LORazepam 0.5 MG TAB PO SCH ×3 (09:04→21:28)
[2017-03-22] MEDS: LEVETIRACETAM INJ 500 MG in SODIUM CHL 0.9% 100 ML IV SCH (09:21)
[2017-03-22] MEDS: PANTOPRAZOLE 40 MG/10 ML VIAL IV SCH (10:13)
[2017-03-22] MEDS: ENOXAPARIN SOD 40 MG/0.4 ML SYRINGE SC SCH (10:13)
[2017-03-22] MEDS: busPIRone HCL 10 MG TAB PO SCH ×3 (10:14→21:29)
[2017-03-22] MEDS: NICOTINE 21MG/24 HR TOPICAL PATCH TD SCH (10:14)
[2017-03-22] MEDS: SUCRALFATE 1 GM TAB PO SCH ×2 (10:24→21:30)
[2017-03-22] MEDS: LEVETIRACETAM 500 MG TAB PO SCH ×2 (10:25→21:29)
[2017-03-22] MEDS: MONTELUKAST SODIUM 10 MG TAB PO SCH (10:26)
[2017-03-22] MEDS: LISINOPRIL 20 MG TAB PO SCH (10:26)
[2017-03-22] MEDS ORDERED: MAGNESIUM CITRATE SOLUTION 300 ML BTL PO ONE (11:00)
[2017-03-22] MEDS ORDERED: FOLIC ACID 1 MG TAB PO ONE (11:00)
[2017-03-22] MEDS ORDERED: THIAMINE HCL 100 MG TAB PO ONE (11:00)
[2017-03-22] MEDS ORDERED: METOPROLOL TARTRATE 50 MG TAB PO ONE (11:00)
[2017-03-22 12:04] VITALS: BP 152/91
[2017-03-22 13:23] LABS: BUN/Creatinine Ratio 19.6
[2017-03-22 13:24] LABS: Calcium 8.5 mg/dL (8.5-10.1)
[2017-03-22 16:50] VITALS: BP 137/105
[2017-03-22 21:00] VITALS: BP_SYST 143; BP_SYST 149; BP_DIAS 100; BP_DIAS 72
[2017-03-22] MEDS: DOCUSATE SOD 100 MG CAP PO SCH (21:29)
[2017-03-23] MEDS: SODIUM CHLORIDE 0.9% 1,000 ML IV SCH (01:00)
[2017-03-23 05:35] VITALS: BP 150/69
[2017-03-23] MEDS: busPIRone HCL 10 MG TAB PO SCH ×2 (06:07→12:56)
[2017-03-23 09:00] VITALS: BP 146/98
[2017-03-23] MEDS ORDERED: THIAMINE HCL 100 MG TAB PO SCH (10:00)
[2017-03-23] MEDS ORDERED: FOLIC ACID 1 MG TAB PO SCH (10:00)
[2017-03-23] MEDS ORDERED: PANTOPRAZOLE 40 MG TAB PO SCH (10:00)
[2017-03-23] MEDS: ENOXAPARIN SOD 40 MG/0.4 ML SYRINGE SC SCH (10:23)
[2017-03-23] MEDS: SUCRALFATE 1 GM TAB PO SCH (10:24)
[2017-03-23] MEDS: DOCUSATE SOD 100 MG CAP PO SCH (10:24)
[2017-03-23] MEDS: MONTELUKAST SODIUM 10 MG TAB PO SCH (10:24)
[2017-03-23] MEDS: LISINOPRIL 20 MG TAB PO SCH (10:26)
[2017-03-23] MEDS: METOPROLOL TARTRATE 50 MG TAB PO SCH (10:27)
[2017-03-23] MEDS: LEVETIRACETAM 500 MG TAB PO SCH (10:27)
[2017-03-23] MEDS: LORazepam 0.5 MG TAB PO SCH (10:28)
[2017-03-23] MEDS: NICOTINE 21MG/24 HR TOPICAL PATCH TD SCH (10:30)
[2017-03-23 13:07] VITALS: BP 154/98
== END 2017-03-23 14:40 | disposition home or self-care (01) | DRG 100 ==
LOC: EDBD 18:40 → ER 18:40 → OVERFLOW 18:41 → EDUNIT# 18:41 → CENTRAL 03-21 21:52
PROVIDERS: ADMIT Nurse Practitioner; ATTEND Family Medicine
DX: G40.401 Other generalized epilepsy and epileptic syndromes, not intractable, with status epilepticus (principal); G92 Toxic encephalopathy; N17.9 Acute kidney failure, unspecified; F10.129 Alcohol abuse with intoxication, unspecified; N32.89 Other specified disorders of bladder; F17.200 Nicotine dependence, unspecified, uncomplicated; F20.9 Schizophrenia, unspecified; F32.9 Major depressive disorder, single episode, unspecified; F41.9 Anxiety disorder, unspecified; I10 Essential (primary) hypertension; K59.00 Constipation, unspecified; K82.8 Other specified diseases of gallbladder; R32 Unspecified urinary incontinence; Z79.899 Other long term (current) drug therapy; Z87.11 Personal history of peptic ulcer disease; Z91.19 Patient's noncompliance with other medical treatment and regimen; Z23 Encounter for immunization
CPT/HCPCS: 36415; 36600; 51702; 70450; 71045; 74176; 80048; 80053; 80307; 80320; 81001; 82805; 82962; 83036; 83735; 85025; 85610; 85730; 93005; 96365; 96367; 96372; 96375; 99291; C9113; J7060

== ENCOUNTER 2017-05-11 20:47 | Emergency (ER) | payer OTHER ==
[~2017-05-11] VITALS: Ht 160 cm; Wt 96.2 kg
[2017-05-11] MEDS ORDERED: ASPirin 81 mg TAB PO ONE (21:30)
[2017-05-11] MEDS ORDERED: LORazepam 2MG/ML-1ML VIAL IV ONE (21:30)
[2017-05-11 21:46] LABS: Basophils # (auto) 0 uL; Basophils % (auto) 0.5 % (0.0-2.0); Eosinophils # (auto) 0.2 uL; Hematocrit 37.8 % (41.0-53.0); Hemoglobin 13.3 g/dL (13.5-17.5); Lymphocytes # (auto) 2.7 uL; Lymphocytes % (auto) 33.7 % (10.0-50.0); Mean Corpuscular Hemoglobin 29.3 pg (28.0-32.0); Mean Corpuscular Hgb Conc. 35.2 g/dL (32.0-36.0); Mean Corpuscular Volume 83.4 fL (80.0-100.0); Monocytes # (auto) 0.7 uL; Monocytes % (auto) 8.8 % (0.0-12.0); Neutrophils # (auto) 4.5 uL; Nucleated Red Blood Cells % 0.1 %; Platelet Count (auto) 263 10^3/uL (140-450); Red Blood Cells 4.54 10^6/uL (4.5-5.90); Red Cell Distribution Width 13.3 % (11.8-14.3); White Blood Cell 8.1 10^3/uL (4.4-10.8)
[2017-05-11 21:57] LABS: INR 1.01 (0.9-1.15); Partial Thromboplastin Time 25.4 sec (22.64-33.71)
[2017-05-11 22:03] LABS: Alanine Aminotransferase 34 U/L (16-61); Albumin 3.5 g/dL (3.4-5.0); Anion Gap 6 (5-15); Aspartate Aminotransferase 14 U/L (15-37); Blood Urea Nitrogen 11 mg/dL (7-18); Calcium 8.1 mg/dL (8.5-10.1); Carbon Dioxide 28 mmol/L (21-32); Chloride 100 mmol/L (98-107); GFR African American 94 mL/min; GFR Non-African American 78 mL/min; Glucose 98 mg/dL (74-106); Magnesium 1.4 mg/dL (1.6-2.6); Potassium 3.7 mmol/L (3.5-5.1); Sodium 134 mmol/L (136-145)
[2017-05-11 22:08] LABS: Alkaline Phosphatase 103 U/L (45-117); Bilirubin, Total 0.4 mg/dL (0.2-1.0); Total Protein 6.4 g/dL (6.4-8.2)
[2017-05-12 02:00] VITALS: BP 142/79
== END 2017-05-12 02:47 | disposition home or self-care (01) ==
LOC: ER 20:47
DX: R07.89 Other chest pain (principal); I10 Essential (primary) hypertension; F41.9 Anxiety disorder, unspecified; F17.210 Nicotine dependence, cigarettes, uncomplicated; Z79.82 Long term (current) use of aspirin; E66.01 Morbid (severe) obesity due to excess calories; Z68.37 Body mass index [BMI] 37.0-37.9, adult; Z79.899 Other long term (current) drug therapy
CPT/HCPCS: 36415; 36600; 71045; 80053; 82805; 83735; 83880; 84443; 84484; 85025; 85610; 85730; 93005; 96374; 99285; J2060; J7030

== ENCOUNTER 2017-08-12 13:32 | Emergency (ER) | payer OTHER ==
[~2017-08-12] VITALS: Ht 154.9 cm; Wt 88.5 kg
[~2017-08-12 13:32] MED LIST changes: +FURO20TA3 PO; +PALI9TAB2 PO; +SPIR50TA23 PO
[2017-08-12 13:54] LABS: Urine WBC None Seen /hpf (0 - 3)
[2017-08-12 14:06] LABS: Urine Bacteria NONE SEEN /hpf (None Seen); Urine Blood Negative /uL (Negative); Urine Specific Gravity 1.003 (1.001-1.035)
[2017-08-12 14:28] LABS: Alcohol, Urine < 3.0 mg/dL (0-5); Amphetamine Screen, Urine NEGATIVE (NEGATIVE); Barbiturate Scree,Urine NEGATIVE (NEGATIVE); Benzodiazephine Screen, Urine NEGATIVE (NEGATIVE); Cannabinoid Screen, Urine NEGATIVE (NEGATIVE); Cocaine Screen, Urine NEGATIVE (NEGATIVE); Opiate Scree,Urine NEGATIVE (NEGATIVE); Phencyclidine Screen, Urine NEGATIVE (NEGATIVE)
[2017-08-12 14:52] LABS: Basophils # (auto) 0 uL; Basophils % (auto) 0.6 % (0.0-2.0); Eosinophils # (auto) 0.2 uL; Eosinophils % (auto) 2.2 % (0.0-7.0); Hematocrit 38.9 % (41.0-53.0); Hemoglobin 13.6 g/dL (13.5-17.5); Lymphocytes # (auto) 2.9 uL; Lymphocytes % (auto) 40.6 % (10.0-50.0); Mean Corpuscular Hemoglobin 29.1 pg (28.0-32.0); Mean Corpuscular Volume 83.1 fL (80.0-100.0); Monocytes # (auto) 0.6 uL; Monocytes % (auto) 8.7 % (0.0-12.0); Neutrophils # (auto) 3.5 uL; Neutrophils % (auto) 47.9 % (37.0-80.0); Nucleated Red Blood Cells % 0.1 %; Platelet Count (auto) 251 10^3/uL (140-450); Red Blood Cells 4.68 10^6/uL (4.5-5.90); Red Cell Distribution Width 14.5 % (11.8-14.3); White Blood Cell 7.3 10^3/uL (4.4-10.8)
[2017-08-12] MEDS ORDERED: HYDROcodone-ACET 10/325MG TAB PO ONE (15:00)
[2017-08-12 15:16] LABS: Alanine Aminotransferase 41 U/L (16-61); Albumin 3.6 g/dL (3.4-5.0); Alkaline Phosphatase 111 U/L (45-117); Anion Gap 10 (5-15); Aspartate Aminotransferase 17 U/L (15-37); BUN/Creatinine Ratio 14.1; Bilirubin, Total 0.3 mg/dL (0.2-1.0); Blood Urea Nitrogen 18 mg/dL (7-18); Calcium 8.7 mg/dL (8.5-10.1); Carbon Dioxide 26 mmol/L (21-32); Chloride 104 mmol/L (98-107); GFR African American 79 mL/min; GFR Non-African American 65 mL/min; Glucose 114 mg/dL (74-106); Magnesium 1.6 mg/dL (1.6-2.6); Potassium 4.2 mmol/L (3.5-5.1); Sodium 140 mmol/L (136-145); Total Protein 6.4 g/dL (6.4-8.2)
[2017-08-12 16:19] VITALS: BP 106/66
[2017-08-12] MEDS ORDERED: MECLIZINE HCL 25 MG TAB PO ONE (16:30)
[2017-08-12] MEDS ORDERED: HYDROcodone-ACET 5/325MG TAB PO ONE (16:30)
== END 2017-08-12 16:37 | disposition home or self-care (01) ==
LOC: ER 13:32
DX: R51 Headache (principal); F41.9 Anxiety disorder, unspecified; I10 Essential (primary) hypertension; Z79.899 Other long term (current) drug therapy; F17.210 Nicotine dependence, cigarettes, uncomplicated
CPT/HCPCS: 36415; 70450; 80053; 80307; 81001; 82962; 83735; 84484; 85025; 93005; 99285; J8597

== ENCOUNTER 2017-08-27 20:38 | Inpatient (IN) | payer OTHER ==
[~2017-08-27] VITALS: Ht 157.5 cm; Wt 90.7 kg
[2017-08-27] MEDS ORDERED: ASPirin-EC 325mg tab PO ONE (21:30)
[2017-08-27] MEDS ORDERED: NITROGLYCERIN 0.4 MG SL TAB SL ONE (21:30)
[2017-08-27 22:12] LABS: Urine Bacteria NONE SEEN /hpf (None Seen); Urine Blood Negative /uL (Negative); Urine Specific Gravity 1.003 (1.001-1.035); Urine WBC <1 /hpf (0 - 3)
[2017-08-27 22:17] LABS: Basophils # (auto) 0 uL; Basophils % (auto) 0.5 % (0.0-2.0); Eosinophils # (auto) 0.2 uL; Eosinophils % (auto) 2.7 % (0.0-7.0); Hematocrit 35.5 % (41.0-53.0); Hemoglobin 12.9 g/dL (13.5-17.5); Lymphocytes # (auto) 3.1 uL; Lymphocytes % (auto) 40.6 % (10.0-50.0); Mean Corpuscular Hemoglobin 29.9 pg (28.0-32.0); Mean Corpuscular Hgb Conc. 36.3 g/dL (32.0-36.0); Mean Corpuscular Volume 82.4 fL (80.0-100.0); Monocytes # (auto) 0.6 uL; Monocytes % (auto) 7.9 % (0.0-12.0); Neutrophils # (auto) 3.7 uL; Neutrophils % (auto) 48.3 % (37.0-80.0); Platelet Count (auto) 233 10^3/uL (140-450); Red Cell Distribution Width 14.3 % (11.8-14.3); White Blood Cell 7.8 10^3/uL (4.4-10.8)
[2017-08-27 22:40] LABS: Albumin 3.5 g/dL (3.4-5.0); Amylase 38 U/L (25-115); Anion Gap 12 (5-15); BUN/Creatinine Ratio 16.4; Blood Urea Nitrogen 22 mg/dL (7-18); Calcium 8.1 mg/dL (8.5-10.1); Carbon Dioxide 20 mmol/L (21-32); Chloride 103 mmol/L (98-107); GFR African American 74 mL/min; GFR Non-African American 62 mL/min; Glucose 99 mg/dL (74-106); Lipase 227 U/L (73-393); Magnesium 1.6 mg/dL (1.6-2.6); Potassium 3.8 mmol/L (3.5-5.1); Sodium 135 mmol/L (136-145)
[2017-08-27 22:46] LABS: Alanine Aminotransferase 36 U/L (16-61); Alkaline Phosphatase 82 U/L (45-117); Aspartate Aminotransferase 16 U/L (15-37); Bilirubin, Total 0.3 mg/dL (0.2-1.0); Total Protein 6.5 g/dL (6.4-8.2)
[2017-08-28] MEDS ORDERED: ONDANSETRON HCL 4 MG/2 ML VIAL IV PRN (06:15)
[2017-08-28] MEDS ORDERED: TEMAZEPAM 15 MG CAP PO PRN (06:15)
[2017-08-28] MEDS ORDERED: HYDROcodone-ACET 5/325MG TAB PO PRN (06:15)
[2017-08-28] MEDS ORDERED: ACETAMINOPHEN 325 MG TAB PO PRN (06:15)
[2017-08-28] MEDS ORDERED: MORPHINE SULF(PF) 0.5MG/ML 10ML VIAL IV PRN (06:15)
[2017-08-28] MEDS ORDERED: NITROGLYCERIN 0.4 MG SL TAB SL PRN (06:15)
[2017-08-28] MEDS ORDERED: FAMOTIDINE 20 MG TAB PO SCH (10:00)
[2017-08-28] MEDS ORDERED: ENOXAPARIN SOD 40 MG/0.4 ML SYRINGE SC SCH (10:00)
[2017-08-28] MEDS ORDERED: LEVETIRACETAM 500 MG TAB PO SCH (10:00)
[2017-08-28] MEDS ORDERED: predniSONE 20 MG TAB PO SCH (10:00)
[2017-08-28] MEDS ORDERED: FUROSEMIDE 20 MG TAB PO SCH (10:00)
[2017-08-28] MEDS ORDERED: BENZTROPINE MESY 0.5 MG TAB PO SCH (10:00)
[2017-08-28] MEDS ORDERED: ASPirin 81 mg TAB PO SCH (10:00)
[2017-08-28] MEDS ORDERED: amLODIPine BESYLATE 5 MG TAB PO SCH (10:00)
[2017-08-28] MEDS ORDERED: METOCLOPRAMIDE HCL 10 MG TAB PO SCH (10:00)
[2017-08-28 17:15] VITALS: BP 131/81
== END 2017-08-28 14:45 | disposition home or self-care (01) | DRG 918 ==
LOC: ER 20:38 → TELE 20:39
PROVIDERS: ADMIT Nurse Practitioner; ATTEND Family Medicine
DX: T46.5X1A Poisoning by other antihypertensive drugs, accidental (unintentional), initial encounter (principal); R07.89 Other chest pain; E11.9 Type 2 diabetes mellitus without complications; E66.9 Obesity, unspecified; R00.1 Bradycardia, unspecified; G47.00 Insomnia, unspecified; E78.5 Hyperlipidemia, unspecified; F17.210 Nicotine dependence, cigarettes, uncomplicated; F41.9 Anxiety disorder, unspecified; F20.9 Schizophrenia, unspecified; I10 Essential (primary) hypertension; K21.9 Gastro-esophageal reflux disease without esophagitis; Z82.49 Family history of ischemic heart disease and other diseases of the circulatory system; Z68.36 Body mass index [BMI] 36.0-36.9, adult; Z83.3 Family history of diabetes mellitus; Z79.899 Other long term (current) drug therapy; Z79.82 Long term (current) use of aspirin; Y92.89 Other specified places as the place of occurrence of the external cause
CPT/HCPCS: 36415; 71045; 80053; 81001; 82150; 83690; 83735; 83880; 84484; 85025; 93005; 96372

== ENCOUNTER 2017-11-22 20:50 | Emergency (ER) | payer OTHER ==
[~2017-11-22] VITALS: Ht 157.5 cm; Wt 86.2 kg
[~2017-11-22 20:50] MED LIST changes: +AMLO10TA12 PO; -AMLO10TA2 PO; -SPIR50TA23 PO; +SPIR50TA5 PO
[2017-11-23 01:23] LABS: Basophils # (auto) 0 uL; Basophils % (auto) 0.4 % (0.0-2.0); Eosinophils # (auto) 0.2 uL; Eosinophils % (auto) 2.2 % (0.0-7.0); Hematocrit 39.2 % (41.0-53.0); Hemoglobin 13.9 g/dL (13.5-17.5); Lymphocytes # (auto) 3.7 uL; Lymphocytes % (auto) 47.3 % (10.0-50.0); Mean Corpuscular Hemoglobin 29.6 pg (28.0-32.0); Mean Corpuscular Hgb Conc. 35.5 g/dL (32.0-36.0); Mean Corpuscular Volume 83.5 fL (80.0-100.0); Monocytes # (auto) 0.6 uL; Monocytes % (auto) 7.7 % (0.0-12.0); Neutrophils # (auto) 3.4 uL; Neutrophils % (auto) 42.4 % (37.0-80.0); Nucleated Red Blood Cells % 0.1 %; Platelet Count (auto) 217 10^3/uL (140-450); Red Blood Cells 4.69 10^6/uL (4.5-5.90); Red Cell Distribution Width 13.5 % (11.8-14.3); White Blood Cell 7.9 10^3/uL (4.4-10.8)
[2017-11-23 01:36] LABS: INR 1.09 (0.9-1.15); Partial Thromboplastin Time 27.2 sec (23.78-33.04); Prothrombin Time 11.6 sec (9.27-12.13)
[2017-11-23 01:45] LABS: Calcium 8.2 mg/dL (8.5-10.1); Chloride 97 mmol/L (98-107); Potassium 3.4 mmol/L (3.5-5.1); Sodium 135 mmol/L (136-145)
[2017-11-23 01:48] LABS: Alanine Aminotransferase 30 U/L (16-61); Amylase 35 U/L (25-115); Anion Gap 8 (5-15); Aspartate Aminotransferase 12 U/L (15-37); BUN/Creatinine Ratio 6.4; Blood Urea Nitrogen 7 mg/dL (7-18); Carbon Dioxide 30 mmol/L (21-32); GFR African American 94 mL/min; GFR Non-African American 77 mL/min; Glucose 90 mg/dL (74-106); Lipase 119 U/L (73-393); Magnesium 1.8 mg/dL (1.6-2.6)
[2017-11-23 01:58] LABS: Alkaline Phosphatase 99 U/L (45-117); Bilirubin, Total 0.4 mg/dL (0.2-1.0); Total Protein 7.1 g/dL (6.4-8.2)
[2017-11-23] MEDS ORDERED: cloNIDine HCL 0.1 MG TAB PO ONE ×2 (08:30→09:45)
[2017-11-23 08:33] VITALS: BP 162/93
== END 2017-11-23 10:22 | disposition home or self-care (01) ==
LOC: ER 20:50
DX: I10 Essential (primary) hypertension (principal); E11.9 Type 2 diabetes mellitus without complications; E78.5 Hyperlipidemia, unspecified; F17.210 Nicotine dependence, cigarettes, uncomplicated; Z79.899 Other long term (current) drug therapy
CPT/HCPCS: 36415; 74176; 80053; 82150; 83690; 83735; 84484; 85025; 85610; 85730; 93005

== ENCOUNTER 2018-02-06 07:58 | Inpatient (IN) | payer OTHER ==
[~2018-02-06] VITALS: Ht 157.5 cm; Wt 86.5 kg
[2018-02-06] MEDS ORDERED: NALOXONE HCL 0.4 MG/ML VIAL ONE (08:15)
[2018-02-06] MEDS ORDERED: FLUMAZENIL 0.1 MG/ML INJ 10ML MDV IV ONE ×2 (08:20→08:45)
[2018-02-06 08:39] LABS: Basophils # (auto) 0 uL; Basophils % (auto) 0.2 % (0.0-2.0); Eosinophils # (auto) 0 uL; Eosinophils % (auto) 0.1 % (0.0-7.0); Hematocrit 44.1 % (41.0-53.0); Hemoglobin 15.3 g/dL (13.5-17.5); Lymphocytes # (auto) 1.8 uL; Lymphocytes % (auto) 14.7 % (10.0-50.0); Mean Corpuscular Hgb Conc. 34.6 g/dL (32.0-36.0); Mean Corpuscular Volume 86.6 fL (80.0-100.0); Monocytes # (auto) 0.8 uL; Monocytes % (auto) 6.3 % (0.0-12.0); Neutrophils # (auto) 9.5 uL; Neutrophils % (auto) 78.7 % (37.0-80.0); Platelet Count (auto) 239 10^3/uL (140-450); Red Blood Cells 5.09 10^6/uL (4.5-5.90); Red Cell Distribution Width 13.9 % (11.8-14.3)
[2018-02-06] MEDS ORDERED: NALOXONE HCL 0.4 MG/ML VIAL IV ONE (08:45)
[2018-02-06 08:54] LABS: Alanine Aminotransferase 79 U/L (16-61); Albumin 3.7 g/dL (3.4-5.0); Anion Gap 5 (5-15); Blood Alcohol < 3.0 mg/dL (0-5); Blood Urea Nitrogen 18 mg/dL (7-18); Calcium 8.9 mg/dL (8.5-10.1); Carbon Dioxide 23 mmol/L (21-32); Chloride 111 mmol/L (98-107); Glucose 166 mg/dL (74-106); Magnesium 2.1 mg/dL (1.6-2.6); Potassium 4.7 mmol/L (3.5-5.1); Sodium 139 mmol/L (136-145)
[2018-02-06 08:55] LABS: INR 1.02 (0.9-1.15); Partial Thromboplastin Time 24.9 sec (23.78-33.04); Prothrombin Time 10.9 sec (9.27-12.13)
[2018-02-06 08:59] LABS: Alkaline Phosphatase 104 U/L (45-117); Aspartate Aminotransferase 50 U/L (15-37); BUN/Creatinine Ratio 13.4; Bilirubin, Total 0.2 mg/dL (0.2-1.0); GFR African American 74 mL/min; GFR Non-African American 62 mL/min; Total Protein 7.3 g/dL (6.4-8.2)
[2018-02-06] MEDS ORDERED: LABETALOL HCL 5 MG/ML 4ML SYRINGE IV ONE ×3 (09:10→16:59)
[2018-02-06] MEDS ORDERED: cefTRIAXone 1GM/50ML D5W 50 ML IV ONE (09:15)
[2018-02-06] MEDS ORDERED: LABETALOL HCL 5 MG/ML ML 20ML VIAL IV ONE ×3 (09:15→17:00)
[2018-02-06] MEDS ORDERED: VANCOMYCIN 1GM/250ML 250 ML IV ONE (09:15)
[2018-02-06 09:16] LABS: Urine Bacteria FEW /hpf (None Seen); Urine Blood 1+ /uL (Negative); Urine Specific Gravity 1.006 (1.001-1.035); Urine WBC 1 /hpf (0 - 3)
[2018-02-06 11:04] LABS: Alcohol, Urine < 3.0 mg/dL (0-5)
[2018-02-06 11:05] LABS: Amphetamine Screen, Urine NEGATIVE (NEGATIVE); Barbiturate Scree,Urine NEGATIVE (NEGATIVE); Benzodiazephine Screen, Urine POSITIVE (NEGATIVE); Cannabinoid Screen, Urine POSITIVE (NEGATIVE); Cocaine Screen, Urine NEGATIVE (NEGATIVE); Opiate Scree,Urine NEGATIVE (NEGATIVE); Phencyclidine Screen, Urine NEGATIVE (NEGATIVE)
[2018-02-06] MEDS ORDERED: VANCOMYCIN PER PHARMACY 0 MG IV SCH (12:15)
[2018-02-06] MEDS ORDERED: LORazepam 2MG/ML-1ML VIAL IV PRN (12:15)
[2018-02-06] MEDS ORDERED: ONDANSETRON HCL 4 MG/2 ML VIAL IV PRN (12:30)
[2018-02-06] MEDS ORDERED: FAMOTIDINE (10MG/ML) 2ML VL IV ONE (12:30)
[2018-02-06] MEDS ORDERED: MORPHINE SULFATE 4 MG/ML SYR/VIAL IV PRN ×2 (12:30)
[2018-02-06] MEDS ORDERED: DEXTROSE (50%) 50ML SYRG IV PRN (12:30)
[2018-02-06] MEDS ORDERED: PANTOPRAZOLE 40 MG/10 ML VIAL IV ONE (12:30)
[2018-02-06] MEDS ORDERED: NITROGLYCERIN 0.4 MG SL TAB SL PRN (12:30)
[2018-02-06] MEDS: SODIUM CHLORIDE 0.9% 1,000 ML IV SCH ×2 (12:52→21:30)
[2018-02-06] MEDS ORDERED: LISI-646 PO (13:03)
[2018-02-06] MEDS ORDERED: PALI9TAB2 PO (13:03)
[2018-02-06] MEDS ORDERED: LABETALOL HCL 5 MG/ML ML 20ML VIAL IV PRN (13:30)
[2018-02-06 18:00] VITALS: BP 171/115
[2018-02-06] MEDS: InsuLIN REG 1unit/0.01ml Soln (100units/ml) SC SCH (18:00)
[2018-02-06] MEDS: ACCU-CHEK COMFORT CURVE STRIP VI SCH (18:32)
[2018-02-06 20:00] VITALS: BP 176/117
[2018-02-06] MEDS: LABETALOL HCL 5 MG/ML 4ML SYRINGE IV PRN ×2 (20:36→23:13)
[2018-02-06] MEDS: LEVETIRACETAM INJ 500 MG in D5W 5% 100 ML IV SCH (22:10)
[2018-02-06] MEDS: THIAMINE INJ 100 MG, MULTIPLE VITAMIN 10 ML, FOLIC ACID 1 MG, MAGNESIUM SULF SDV 50% 8 ... IV SCH ×5 (22:10)
[2018-02-06] MEDS ORDERED: CLON0.2D6 PO (22:43)
[2018-02-06] MEDS ORDERED: IBUP600T27 PO (22:44)
[2018-02-06] MEDS ORDERED: QUET25TA37 PO (22:44)
[2018-02-06] MEDS ORDERED: SUCR1SUS8 PO (22:48)
[2018-02-07] VITALS (13 sets, daily range): BP systolic 140–197; BP diastolic 92–113
[2018-02-07] MEDS: ACCU-CHEK COMFORT CURVE STRIP VI SCH ×4 (00:07→17:29)
[2018-02-07] MEDS: LABETALOL HCL 5 MG/ML 4ML SYRINGE IV PRN ×2 (01:32→07:54)
[2018-02-07] MEDS ORDERED: VANCOMYCIN 1GM/250ML 250 ML IV SCH (03:00)
[2018-02-07] MEDS: SODIUM CHLORIDE 0.9% 1,000 ML IV SCH ×2 (05:04→12:00)
[2018-02-07 05:41] LABS: Basophils # (auto) 0 uL; Basophils % (auto) 0.2 % (0.0-2.0); Eosinophils # (auto) 0.1 uL; Eosinophils % (auto) 1.3 % (0.0-7.0); Hematocrit 42.2 % (41.0-53.0); Hemoglobin 14.6 g/dL (13.5-17.5); Lymphocytes # (auto) 2.5 uL; Lymphocytes % (auto) 23.3 % (10.0-50.0); Mean Corpuscular Hemoglobin 30.6 pg (28.0-32.0); Mean Corpuscular Hgb Conc. 34.7 g/dL (32.0-36.0); Mean Corpuscular Volume 88.1 fL (80.0-100.0); Monocytes # (auto) 0.9 uL; Monocytes % (auto) 8.2 % (0.0-12.0); Neutrophils # (auto) 7.2 uL; Platelet Count (auto) 197 10^3/uL (140-450); Red Blood Cells 4.79 10^6/uL (4.5-5.90); Red Cell Distribution Width 13.9 % (11.8-14.3); White Blood Cell 10.8 10^3/uL (4.4-10.8)
[2018-02-07] MEDS: InsuLIN REG 1unit/0.01ml Soln (100units/ml) SC SCH ×4 (05:50→17:29)
[2018-02-07 06:00] LABS: Albumin 3.2 g/dL (3.4-5.0); Calcium 8.5 mg/dL (8.5-10.1); Potassium 4.2 mmol/L (3.5-5.1)
[2018-02-07 06:02] LABS: BUN/Creatinine Ratio 13.9
[2018-02-07 06:26] LABS: Bilirubin, Total 0.4 mg/dL (0.2-1.0); Total Protein 6.7 g/dL (6.4-8.2)
[2018-02-07] MEDS: cefTRIAXone 1GM/50ML D5W 50 ML IV SCH (08:24)
[2018-02-07] MEDS ORDERED: FAMOTIDINE (10MG/ML) 2ML VL IV SCH (10:00)
[2018-02-07] MEDS: PANTOPRAZOLE 40 MG/10 ML VIAL IV SCH (10:21)
[2018-02-07] MEDS: ENOXAPARIN SOD 40 MG/0.4 ML SYRINGE SC SCH (10:21)
[2018-02-07] MEDS: LEVETIRACETAM INJ 500 MG in D5W 5% 100 ML IV SCH ×2 (10:22→22:00)
[2018-02-07] MEDS ORDERED: hydrALAZINE HCL 25 MG TAB PO PRN (11:15)
[2018-02-07] MEDS ORDERED: ALBUTEROL SULF 2.5 MG/0.5ML(0.5%) NEB SOLN NEB PRN (11:45)
[2018-02-07] MEDS: METOPROLOL TARTRATE 1MG/1ML-5ML VIAL IV SCH ×2 (12:00→17:29)
[2018-02-07] MEDS: VANCOMYCIN 1GM/250ML 250 ML IV SCH (15:05)
[2018-02-07] MEDS: hydrALAZINE HCL 20 MG/ML VL IV PRN ×2 (18:43→20:07)
[2018-02-07] MEDS ORDERED: METOPROLOL TARTRATE 25 MG TAB PO ONE (21:39)
[2018-02-07] MEDS ORDERED: METOPROLOL TARTRATE 50 MG TAB ONE (21:49)
[2018-02-07] MEDS: METOPROLOL TARTRATE 50 MG TAB PO SCH (22:00)
[2018-02-07] MEDS: THIAMINE INJ 100 MG, MULTIPLE VITAMIN 10 ML, FOLIC ACID 1 MG, MAGNESIUM SULF SDV 50% 8 ... IV SCH ×5 (22:00)
[2018-02-07] MEDS: amLODIPine BESYLATE 5 MG TAB PO SCH (22:00)
[2018-02-08] VITALS (17 sets, daily range): BP systolic 141–170; BP diastolic 77–103
[2018-02-08] MEDS: InsuLIN REG 1unit/0.01ml Soln (100units/ml) SC SCH ×4 (00:46→17:40)
[2018-02-08] MEDS: ACCU-CHEK COMFORT CURVE STRIP VI SCH ×4 (00:46→17:40)
[2018-02-08] MEDS: VANCOMYCIN 1GM/250ML 250 ML IV SCH ×2 (03:59→15:36)
[2018-02-08 05:35] LABS: Basophils # (auto) 0.1 uL; Basophils % (auto) 0.6 % (0.0-2.0); Eosinophils # (auto) 0.2 uL; Eosinophils % (auto) 1.7 % (0.0-7.0); Hematocrit 36.8 % (41.0-53.0); Lymphocytes # (auto) 1.8 uL; Lymphocytes % (auto) 19.3 % (10.0-50.0); Mean Corpuscular Hemoglobin 30.7 pg (28.0-32.0); Mean Corpuscular Hgb Conc. 35.4 g/dL (32.0-36.0); Mean Corpuscular Volume 86.7 fL (80.0-100.0); Monocytes # (auto) 0.6 uL; Monocytes % (auto) 6.5 % (0.0-12.0); Neutrophils # (auto) 6.7 uL; Neutrophils % (auto) 71.9 % (37.0-80.0); Platelet Count (auto) 228 10^3/uL (140-450); Red Blood Cells 4.24 10^6/uL (4.5-5.90); Red Cell Distribution Width 13.6 % (11.8-14.3); White Blood Cell 9.3 10^3/uL (4.4-10.8)
[2018-02-08 06:00] LABS: BUN/Creatinine Ratio 14.4; Calcium 8.5 mg/dL (8.5-10.1); Potassium 3.8 mmol/L (3.5-5.1)
[2018-02-08] MEDS: METOPROLOL TARTRATE 1MG/1ML-5ML VIAL IV SCH ×2 (06:47)
[2018-02-08] MEDS ORDERED: chlordiazePOXIDE HCL 25 MG CAP PO PRN (08:00)
[2018-02-08] MEDS: SODIUM CHLORIDE 0.9% 1,000 ML IV SCH (09:39)
[2018-02-08] MEDS: cefTRIAXone 1GM/50ML D5W 50 ML IV SCH (09:39)
[2018-02-08] MEDS ORDERED: POTASSIUM CHL 20 Meq TABLET PO ONE (09:45)
[2018-02-08] MEDS: METOPROLOL TARTRATE 50 MG TAB PO SCH ×3 (10:00→21:39)
[2018-02-08] MEDS: ENOXAPARIN SOD 40 MG/0.4 ML SYRINGE SC SCH (10:26)
[2018-02-08] MEDS: PANTOPRAZOLE 40 MG/10 ML VIAL IV SCH (10:26)
[2018-02-08] MEDS: LEVETIRACETAM INJ 500 MG in D5W 5% 100 ML IV SCH ×2 (10:26→21:38)
[2018-02-08] MEDS: amLODIPine BESYLATE 5 MG TAB PO SCH (10:27)
[2018-02-08] MEDS ORDERED: VANCOMYCIN 1GM/250ML 250 ML IV ONE (15:32)
[2018-02-08] MEDS: hydrALAZINE HCL 20 MG/ML VL IV PRN (18:11)
[2018-02-08] MEDS ORDERED: amLODIPine BESYLATE 5 MG TAB PO ONE (20:15)
[2018-02-08] MEDS ORDERED: ACETAMINOPHEN 325 MG TAB PO PRN (20:15)
[2018-02-08] MEDS: THIAMINE INJ 100 MG, MULTIPLE VITAMIN 10 ML, FOLIC ACID 1 MG, MAGNESIUM SULF SDV 50% 8 ... IV SCH ×5 (22:00)
[2018-02-09] VITALS: BP 165/101
[2018-02-09 03:00] VITALS: BP 166/81
[2018-02-09] MEDS: VANCOMYCIN 1GM/250ML 250 ML IV SCH ×2 (03:28→15:55)
[2018-02-09] MEDS: SODIUM CHLORIDE 0.9% 1,000 ML IV SCH (04:00)
[2018-02-09 05:23] LABS: Basophils # (auto) 0 uL; Basophils % (auto) 0.4 % (0.0-2.0); Eosinophils # (auto) 0.3 uL; Eosinophils % (auto) 3.7 % (0.0-7.0); Hematocrit 38.9 % (41.0-53.0); Hemoglobin 13.7 g/dL (13.5-17.5); Lymphocytes % (auto) 23.6 % (10.0-50.0); Mean Corpuscular Hemoglobin 30.2 pg (28.0-32.0); Mean Corpuscular Hgb Conc. 35.1 g/dL (32.0-36.0); Monocytes # (auto) 0.6 uL; Monocytes % (auto) 7.8 % (0.0-12.0); Neutrophils # (auto) 5.4 uL; Neutrophils % (auto) 64.5 % (37.0-80.0); Platelet Count (auto) 246 10^3/uL (140-450); Red Blood Cells 4.52 10^6/uL (4.5-5.90); Red Cell Distribution Width 13.4 % (11.8-14.3); White Blood Cell 8.3 10^3/uL (4.4-10.8)
[2018-02-09 05:42] LABS: Magnesium 1.9 mg/dL (1.6-2.6); Potassium 3.6 mmol/L (3.5-5.1)
[2018-02-09 05:43] LABS: BUN/Creatinine Ratio 15.8
[2018-02-09] MEDS: InsuLIN REG 1unit/0.01ml Soln (100units/ml) SC SCH ×4 (06:00→17:42)
[2018-02-09] MEDS: ACCU-CHEK COMFORT CURVE STRIP VI SCH ×4 (06:13→17:42)
[2018-02-09 08:00] VITALS: BP 143/98
[2018-02-09] MEDS: cefTRIAXone 1GM/50ML D5W 50 ML IV SCH (10:00)
[2018-02-09] MEDS: LEVETIRACETAM INJ 500 MG in D5W 5% 100 ML IV SCH (10:56)
[2018-02-09] MEDS: PANTOPRAZOLE 40 MG/10 ML VIAL IV SCH (10:56)
[2018-02-09] MEDS: METOPROLOL TARTRATE 50 MG TAB PO SCH ×2 (10:57→22:40)
[2018-02-09] MEDS: amLODIPine BESYLATE 5 MG TAB PO SCH (10:57)
[2018-02-09] MEDS: ENOXAPARIN SOD 40 MG/0.4 ML SYRINGE SC SCH (10:57)
[2018-02-09] MEDS ORDERED: POTASSIUM CHL 20 Meq TABLET PO ONE (11:15)
[2018-02-09] MEDS: LISINOPRIL 20 MG TAB PO SCH (11:21)
[2018-02-09] MEDS: MAGNESIUM SULFATE 1GM/100ML 100 ML IV SCH ×2 (11:28→12:43)
[2018-02-09 11:59] VITALS: BP 148/100
[2018-02-09 16:00] VITALS: BP 153/100
[2018-02-09] MEDS: hydrALAZINE HCL 20 MG/ML VL IV PRN (16:07)
[2018-02-09 19:49] VITALS: BP 141/96
[2018-02-09] MEDS: THIAMINE INJ 100 MG, MULTIPLE VITAMIN 10 ML, FOLIC ACID 1 MG, MAGNESIUM SULF SDV 50% 8 ... IV SCH ×5 (22:37)
[2018-02-09] MEDS: OXcarbazepine 300 MG TAB PO SCH (22:46)
[2018-02-10] MEDS: SODIUM CHLORIDE 0.9% 1,000 ML IV SCH
[2018-02-10 00:30] VITALS: BP 136/74
[2018-02-10] MEDS: VANCOMYCIN 1GM/250ML 250 ML IV SCH (03:34)
[2018-02-10] MEDS: InsuLIN REG 1unit/0.01ml Soln (100units/ml) SC SCH ×3 (06:00→12:00)
[2018-02-10] MEDS: ACCU-CHEK COMFORT CURVE STRIP VI SCH ×3 (06:00→12:10)
[2018-02-10 08:00] VITALS: BP 140/89
[2018-02-10] MEDS: cefTRIAXone 1GM/50ML D5W 50 ML IV SCH (09:17)
[2018-02-10] MEDS: OXcarbazepine 300 MG TAB PO SCH (10:16)
[2018-02-10] MEDS: METOPROLOL TARTRATE 50 MG TAB PO SCH (10:16)
[2018-02-10] MEDS: amLODIPine BESYLATE 5 MG TAB PO SCH (10:17)
[2018-02-10] MEDS: ENOXAPARIN SOD 40 MG/0.4 ML SYRINGE SC SCH (10:17)
[2018-02-10] MEDS: PANTOPRAZOLE 40 MG/10 ML VIAL IV SCH (10:17)
[2018-02-10 11:52] VITALS: BP 136/96
[2018-02-10] MEDS: LISINOPRIL 20 MG TAB PO SCH (12:09)
[2018-02-10 13:20] VITALS: BP 136/96
[2018-02-10 13:30] VITALS: BP 136/96
== END 2018-02-10 13:27 | disposition home or self-care (01) | DRG 917 ==
LOC: ER 07:58 → EDBD 07:58 → TELE 07:59 → DOU IN ICU 16:34
PROVIDERS: ADMIT Internal Medicine; ATTEND Family Medicine
DX: T50.901A Poisoning by unspecified drugs, medicaments and biological substances, accidental (unintentional), initial encounter (principal); G92 Toxic encephalopathy; N39.0 Urinary tract infection, site not specified; N18.2 Chronic kidney disease, stage 2 (mild); E11.21 Type 2 diabetes mellitus with diabetic nephropathy; E11.22 Type 2 diabetes mellitus with diabetic chronic kidney disease; E78.5 Hyperlipidemia, unspecified; F17.210 Nicotine dependence, cigarettes, uncomplicated; F20.9 Schizophrenia, unspecified; I12.9 Hypertensive chronic kidney disease with stage 1 through stage 4 chronic kidney disease, or unspecified chronic kidney disease; F41.9 Anxiety disorder, unspecified; R32 Unspecified urinary incontinence; F10.10 Alcohol abuse, uncomplicated; Y92.89 Other specified places as the place of occurrence of the external cause; Z82.49 Family history of ischemic heart disease and other diseases of the circulatory system; Z83.3 Family history of diabetes mellitus; Z79.899 Other long term (current) drug therapy; G40.401 Other generalized epilepsy and epileptic syndromes, not intractable, with status epilepticus
CPT/HCPCS: 36415; 36600; 51702; 70450; 71045; 74176; 80048; 80053; 80202; 80307; 80320; 81001; 82607; 82805; 82962; 83036; 83605; 83735; 84443; 84484; 85025; 85610; 85730; 87040; 87081; 87086; 93005; 94640; 94761; 95819; 96365; 96366; 96368; 96375; 96376; 97116; 97530; 99291; C9113; G0378; J0696; J1815; J3490; J7060

== ENCOUNTER 2018-07-09 08:02 | Emergency (ER) | payer MEDICARE, OTHER ==
[~2018-07-09] VITALS: Ht 160 cm; Wt 83.9 kg
[~2018-07-09 08:02] MED LIST changes: -ALPR2TAB2 PO; -AMLO10TA12 PO; -ASPI-231 PO; -BACL10TA PO; -BENZ1TAB2 PO; -BUSP15TA60 PO; +CLON0.2D6 PO; -FENO160T8 PO; -FURO20TA3 PO; +IBUP600T27 PO; +LISI-646 PO; -METO10TA3 PO; -PRED-188 PO; +QUET25TA37 PO; -SPIR50TA5 PO; +SUCR1SUS8 PO
[2018-07-09 08:47] LABS: Urine Bacteria NONE SEEN /hpf (None Seen); Urine Blood Negative /uL (Negative); Urine Specific Gravity 1.004 (1.001-1.035); Urine WBC 1 /hpf (0 - 3)
[2018-07-09 08:55] LABS: Basophils # (auto) 0 uL; Basophils % (auto) 0.7 % (0.0-2.0); Eosinophils # (auto) 0.1 uL; Eosinophils % (auto) 1.9 % (0.0-7.0); Hematocrit 41.5 % (41.0-53.0); Hemoglobin 14.8 g/dL (13.5-17.5); Lymphocytes # (auto) 1.4 uL; Lymphocytes % (auto) 23.5 % (10.0-50.0); Mean Corpuscular Hemoglobin 29.7 pg (28.0-32.0); Mean Corpuscular Hgb Conc. 35.7 g/dL (32.0-36.0); Mean Corpuscular Volume 83.2 fL (80.0-100.0); Monocytes # (auto) 0.5 uL; Monocytes % (auto) 8.8 % (0.0-12.0); Neutrophils % (auto) 65.1 % (37.0-80.0); Platelet Count (auto) 236 10^3/uL (140-450); Red Blood Cells 4.99 10^6/uL (4.5-5.90); Red Cell Distribution Width 13.8 % (11.8-14.3); White Blood Cell 6.1 10^3/uL (4.4-10.8)
[2018-07-09 09:05] LABS: Alcohol, Urine < 3.0 mg/dL (0-5)
[2018-07-09 09:09] LABS: Chloride 110 mmol/L (98-107); Potassium 4.5 mmol/L (3.5-5.1); Sodium 139 mmol/L (136-145)
[2018-07-09 09:09] LABS: Amphetamine Screen, Urine NEGATIVE (NEGATIVE); Barbiturate Scree,Urine NEGATIVE (NEGATIVE); Benzodiazephine Screen, Urine NEGATIVE (NEGATIVE); Cannabinoid Screen, Urine NEGATIVE (NEGATIVE); Cocaine Screen, Urine NEGATIVE (NEGATIVE); Opiate Scree,Urine NEGATIVE (NEGATIVE); Phencyclidine Screen, Urine NEGATIVE (NEGATIVE)
[2018-07-09 09:12] LABS: Albumin 4.5 g/dL (3.4-5.0); Anion Gap 7 (5-15); Blood Urea Nitrogen 10 mg/dL (7-18); Calcium 9.6 mg/dL (8.5-10.1); Carbon Dioxide 22 mmol/L (21-32); Glucose 98 mg/dL (74-106)
[2018-07-09 09:18] LABS: Alanine Aminotransferase 30 U/L (16-61); Alkaline Phosphatase 76 U/L (45-117); Aspartate Aminotransferase 12 U/L (15-37); BUN/Creatinine Ratio 6.8; Bilirubin, Total 0.2 mg/dL (0.2-1.0); GFR African American 67 mL/min; GFR Non-African American 55 mL/min; Total Protein 7.9 g/dL (6.4-8.2)
[2018-07-09 09:20] LABS: INR 1.05 (0.9-1.15); Partial Thromboplastin Time 25.4 sec (23.78-33.04); Prothrombin Time 11.2 sec (9.27-12.13)
[2018-07-09] MEDS ORDERED: LORazepam 0.5 MG TAB PO ONE (09:45)
[2018-07-09] MEDS ORDERED: cloNIDine HCL 0.1 MG TAB ONE (10:08)
[2018-07-09] MEDS ORDERED: cloNIDine HCL 0.1 MG TAB PO ONE (10:15)
[2018-07-09 10:24] VITALS: BP 133/99
== END 2018-07-09 10:27 | disposition home or self-care (01) ==
LOC: ER 08:02
DX: F41.9 Anxiety disorder, unspecified (principal); E11.9 Type 2 diabetes mellitus without complications; E78.5 Hyperlipidemia, unspecified; I10 Essential (primary) hypertension; F17.210 Nicotine dependence, cigarettes, uncomplicated; F12.90 Cannabis use, unspecified, uncomplicated
CPT/HCPCS: 36415; 71046; 80053; 80307; 81001; 84484; 85025; 85610; 85730; 93005; 94761

== ENCOUNTER 2018-12-25 16:48 | Emergency (ER) | payer OTHER ==
[~2018-12-25] VITALS: Ht 160 cm; Wt 81.6 kg
[2018-12-25 17:54] LABS: Hematocrit 39.6 % (41.0-53.0); Hemoglobin 13.9 g/dL (13.5-17.5); Mean Corpuscular Hemoglobin 29.6 pg (28.0-32.0); Mean Corpuscular Hgb Conc. 35.2 g/dL (32.0-36.0); Mean Corpuscular Volume 84.2 fL (80.0-100.0); Platelet Count (auto) 228 10^3/uL (140-450); Red Cell Distribution Width 13.1 % (11.8-14.3); White Blood Cell 10.5 10^3/uL (4.4-10.8)
[2018-12-25 17:57] LABS: Albumin 3.7 g/dL (3.4-5.0); Anion Gap 9 (5-15); Blood Urea Nitrogen 13 mg/dL (7-18); Calcium 9.1 mg/dL (8.5-10.1); Carbon Dioxide 26 mmol/L (21-32); Chloride 99 mmol/L (98-107); Glucose 103 mg/dL (74-106); Potassium 3.5 mmol/L (3.5-5.1); Sodium 134 mmol/L (136-145)
[2018-12-25 17:58] LABS: Basophils % (manual) 0 (0.0-2.0); Blast Cells 0; Metamyelocytes % 0; Myelocytes % 0; Promyelocytes % 0; Reactive Lymphocytes 0
[2018-12-25 18:06] LABS: Alanine Aminotransferase 35 U/L (16-61); Alkaline Phosphatase 67 U/L (45-117); Aspartate Aminotransferase 19 U/L (15-37); BUN/Creatinine Ratio 9.8; Bilirubin, Total 0.3 mg/dL (0.2-1.0); GFR African American 75 mL/min; GFR Non-African American 62 mL/min; Total Protein 6.8 g/dL (6.4-8.2)
[2018-12-25 18:36] LABS: Band Neutrophils % (manual) 1; Eosinophils % (manual) 14 (0-7); Lymphocytes % (manual) 40 (10.0-50.0); Monocytes % (manual) 13 (0-12)
[2018-12-25 18:45] LABS: Urine Bacteria NONE SEEN /hpf (None Seen); Urine Blood Negative /uL (Negative); Urine Mucus FEW (None Seen); Urine Specific Gravity 1.004 (1.001-1.035); Urine WBC <1 /hpf (0 - 3)
[2018-12-25 18:47] LABS: INR 1.04 (0.9-1.15); Partial Thromboplastin Time 26.9 sec (23.64-32.05)
[2018-12-25] MEDS ORDERED: SODIUM CHLORIDE 0.9% 1,000 ML IV ONE (19:15)
[2018-12-25 19:32] LABS: Amylase 33 U/L (25-115); Lipase 146 U/L (73-393)
[2018-12-25] MEDS ORDERED: IOHEXOL 300 MG/ML 100ML BOTTLE IJ ONE (22:07)
[2018-12-26 00:01] VITALS: BP 133/86
== END 2018-12-26 01:19 | disposition home or self-care (01) ==
LOC: ER 16:48 → EDUNIT# 16:48 → ER 12-26 01:19
DX: R42 Dizziness and giddiness (principal); F44.9 Dissociative and conversion disorder, unspecified; E11.9 Type 2 diabetes mellitus without complications; E78.5 Hyperlipidemia, unspecified; I10 Essential (primary) hypertension; R11.2 Nausea with vomiting, unspecified
CPT/HCPCS: 36415; 71046; 74177; 80053; 81001; 82150; 82962; 83605; 83690; 83735; 83880; 84484; 85007; 85027; 85610; 85730; 93005; 96360; 99284; J7030; Q9967; 94761

== ENCOUNTER 2019-02-08 09:19 | Emergency (ER) | payer OTHER ==
[~2019-02-08] VITALS: Ht 160 cm; Wt 72.6 kg
[~2019-02-08 09:19] MED LIST changes: +BECL80AE9 PO; +BUSP15TA60 PO; +LEVE500T3 PO; +MONT10TA34 PO; +OMEP-337 PO; +SUCR1TAB PO
[2019-02-08] MEDS ORDERED: cloNIDine HCL 0.1 MG TAB PO ONE (09:30)
[2019-02-08 11:01] LABS: Basophils # (auto) 0 uL; Basophils % (auto) 0.2 % (0.0-2.0); Eosinophils # (auto) 0 uL; Eosinophils % (auto) 0.1 % (0.0-7.0); Hematocrit 45.7 % (41.0-53.0); Lymphocytes # (auto) 1.7 uL; Lymphocytes % (auto) 14.4 % (10.0-50.0); Mean Corpuscular Hemoglobin 30.3 pg (28.0-32.0); Mean Corpuscular Volume 86.6 fL (80.0-100.0); Monocytes # (auto) 0.2 uL; Monocytes % (auto) 1.9 % (0.0-12.0); Neutrophils # (auto) 9.7 uL; Neutrophils % (auto) 83.4 % (37.0-80.0); Nucleated Red Blood Cells % 0.1 %; Platelet Count (auto) 324 10^3/uL (140-450); Red Blood Cells 5.28 10^6/uL (4.5-5.90); White Blood Cell 11.6 10^3/uL (4.4-10.8)
[2019-02-08 11:08] LABS: Chloride 103 mmol/L (98-107); Potassium 3.8 mmol/L (3.5-5.1); Sodium 135 mmol/L (136-145)
[2019-02-08 11:18] LABS: Alanine Aminotransferase 40 U/L (16-61); Albumin 4.6 g/dL (3.4-5.0); Alkaline Phosphatase 63 U/L (45-117); Anion Gap 6 (5-15); Aspartate Aminotransferase 22 U/L (15-37); BUN/Creatinine Ratio 19.6; Bilirubin, Total 0.3 mg/dL (0.2-1.0); Blood Urea Nitrogen 28 mg/dL (7-18); Calcium 9.6 mg/dL (8.5-10.1); Carbon Dioxide 26 mmol/L (21-32); GFR African American 69 mL/min; GFR Non-African American 57 mL/min; Glucose 137 mg/dL (74-106); Total Protein 8.3 g/dL (6.4-8.2)
[2019-02-08] MEDS ORDERED: LORazepam 0.5 MG TAB PO ONE (13:00)
[2019-02-08 14:02] VITALS: BP 150/100
== END 2019-02-08 14:09 | disposition home or self-care (01) ==
LOC: MERGE 09:20 → ER 09:20
DX: R07.89 Other chest pain (principal); F41.9 Anxiety disorder, unspecified; E11.9 Type 2 diabetes mellitus without complications; I10 Essential (primary) hypertension; E78.5 Hyperlipidemia, unspecified
CPT/HCPCS: 36415; 71046; 80053; 84484; 85025; 93005

== ENCOUNTER 2019-09-30 15:22 | Emergency (ER) | payer OTHER ==
[~2019-09-30] VITALS: Ht 162.6 cm; Wt 81.6 kg
[~2019-09-30 15:22] MED LIST changes: -BECL80AE9 PO; -BUSP15TA60 PO; -CLON0.2D6 PO; -LEVE500T22 PO; -LISI-646 PO; -LORA2TAB10 PO; +LORA2TAB12 PO; -MONT10TA34 PO; -OMEP-337 PO; -OMEP20TA PO; -QUET25TA37 PO
[2019-09-30 16:13] LABS: Urine WBC None Seen /hpf (0 - 3)
[2019-09-30 16:25] LABS: Basophils # (auto) 0 10 ^3/uL (0-0.2); Basophils % (auto) 0.4 % (0.0-2.0); Eosinophils # (auto) 0.2 10 ^3/uL (0-0.8); Eosinophils % (auto) 2.3 % (0.0-7.0); Hematocrit 33.3 % (41.0-53.0); Hemoglobin 12.1 g/dL (13.5-17.5); Lymphocytes # (auto) 2.3 10 ^3/uL (0.4-5.4); Lymphocytes % (auto) 28.8 % (10.0-50.0); Mean Corpuscular Hemoglobin 30.1 pg (28.0-32.0); Mean Corpuscular Hgb Conc. 36.4 g/dL (32.0-36.0); Mean Corpuscular Volume 82.7 fL (80.0-100.0); Monocytes # (auto) 0.6 10 ^3/uL (0-1.3); Neutrophils # (auto) 4.7 10 ^3/uL (1.6-8.6); Neutrophils % (auto) 60.5 % (37.0-80.0); Nucleated Red Blood Cells % 0.1 %; Platelet Count (auto) 268 10^3/uL (140-450); Red Blood Cells 4.03 10^6/uL (4.5-5.90); Red Cell Distribution Width 12.7 % (11.8-14.3); White Blood Cell 7.8 10^3/uL (4.4-10.8)
[2019-09-30 16:27] LABS: Urine Bacteria NONE SEEN /hpf (None Seen); Urine Blood Negative /uL (Negative); Urine Mucus FEW (None Seen); Urine Specific Gravity 1.003 (1.001-1.035)
[2019-09-30 16:34] LABS: Calcium 9.3 mg/dL (8.5-10.1); Potassium 3.4 mmol/L (3.5-5.1)
[2019-09-30 16:37] LABS: BUN/Creatinine Ratio 6.2; Bilirubin, Total 0.3 mg/dL (0.2-1.0); Total Protein 7.2 g/dL (6.4-8.2)
[2019-09-30] MEDS ORDERED: SODIUM CHLORIDE 0.9% 1,000 ML IV ONE (16:45)
[2019-09-30 18:00] VITALS: BP 140/80
[2019-09-30] MEDS ORDERED: ONDANSETRON ODT 4 MG TAB PO ONE ×2 (18:00→18:15)
== END 2019-09-30 18:04 | disposition home or self-care (01) ==
LOC: ER 15:22
DX: K21.9 Gastro-esophageal reflux disease without esophagitis (principal); R11.2 Nausea with vomiting, unspecified; E86.0 Dehydration; I10 Essential (primary) hypertension; E78.5 Hyperlipidemia, unspecified; Z79.899 Other long term (current) drug therapy; Z87.891 Personal history of nicotine dependence
CPT/HCPCS: 36415; 80053; 81001; 85025; 99283; Q0162

== ENCOUNTER 2020-04-09 13:03 | Emergency (ER) | payer OTHER ==
[~2020-04-09] VITALS: Ht 172.7 cm; Wt 99.8 kg
[~2020-04-09 13:03] MED LIST changes: +PALI9TAB PO; -PALI9TAB2 PO; +SUCR1SUS16 PO; -SUCR1SUS8 PO
[2020-04-09] MEDS ORDERED: LORazepam 2MG/ML-1ML VIAL IV ONE (13:15)
[2020-04-09 13:51] LABS: Basophils # (auto) 0 10 ^3/uL (0-0.2); Basophils % (auto) 0.3 % (0.0-2.0); Eosinophils # (auto) 0.1 10 ^3/uL (0-0.8); Eosinophils % (auto) 0.9 % (0.0-7.0); Hematocrit 37.3 % (41.0-53.0); Hemoglobin 13.4 g/dL (13.5-17.5); Lymphocytes # (auto) 1.6 10 ^3/uL (0.4-5.4); Lymphocytes % (auto) 21.3 % (10.0-50.0); Mean Corpuscular Hemoglobin 30.7 pg (28.0-32.0); Mean Corpuscular Volume 85.4 fL (80.0-100.0); Monocytes # (auto) 0.5 10 ^3/uL (0-1.3); Neutrophils # (auto) 5.4 10 ^3/uL (1.6-8.6); Neutrophils % (auto) 71.5 % (37.0-80.0); Nucleated Red Blood Cells % 0.1 %; Platelet Count (auto) 324 10^3/uL (140-450); Red Blood Cells 4.37 10^6/uL (4.5-5.90); Red Cell Distribution Width 12.7 % (11.8-14.3); White Blood Cell 7.5 10^3/uL (4.4-10.8)
[2020-04-09 14:19] LABS: BUN/Creatinine Ratio 11.1; Bilirubin, Total 0.3 mg/dL (0.2-1.0); Calcium 8.6 mg/dL (8.5-10.1); Potassium 3.7 mmol/L (3.5-5.1); Total Protein 6.9 g/dL (6.4-8.2)
[2020-04-09 15:15] VITALS: BP 145/92
== END 2020-04-09 16:22 | disposition home or self-care (01) ==
LOC: EDBD 13:03 → ER 13:03
DX: G40.909 Epilepsy, unspecified, not intractable, without status epilepticus (principal); R07.9 Chest pain, unspecified; R41.0 Disorientation, unspecified; E78.5 Hyperlipidemia, unspecified; I10 Essential (primary) hypertension; Z87.891 Personal history of nicotine dependence
CPT/HCPCS: 36415; 71045; 80053; 85025; 93005; 96365; 96375; 99285; J1953; J2060; J7030; J7060

== ENCOUNTER 2020-05-10 22:23 | Emergency (ER) | payer OTHER ==
[~2020-05-10] VITALS: Ht 160 cm; Wt 59.0 kg
[2020-05-10 22:37] VITALS: BP 151/95
[2020-05-14] MEDS ORDERED: IOPAMIDOL 76 % (ISOVUE-370) 100ML BTL IV ONE (03:41)
== END 2020-05-11 01:07 | disposition left against medical advice (07) ==
LOC: ER 22:25
DX: R42 Dizziness and giddiness (principal); Z53.21 Procedure and treatment not carried out due to patient leaving prior to being seen by health care provider

== ENCOUNTER 2021-01-17 21:51 | Emergency (ER) | payer OTHER ==
[~2021-01-17] VITALS: Ht 160 cm; Wt 81.6 kg
[2021-01-17 23:25] LABS: Basophils # (auto) 0 10 ^3/uL (0-0.2); Basophils % (auto) 0.3 % (0.0-2.0); Eosinophils # (auto) 0.1 10 ^3/uL (0-0.8); Eosinophils % (auto) 0.9 % (0.0-7.0); Hematocrit 36.2 % (41.0-53.0); Hemoglobin 12.9 g/dL (13.5-17.5); Lymphocytes # (auto) 1.7 10 ^3/uL (0.4-5.4); Lymphocytes % (auto) 22.6 % (10.0-50.0); Mean Corpuscular Hemoglobin 30.4 pg (28.0-32.0); Mean Corpuscular Hgb Conc. 35.6 g/dL (32.0-36.0); Mean Corpuscular Volume 85.4 fL (80.0-100.0); Monocytes # (auto) 0.7 10 ^3/uL (0-1.3); Monocytes % (auto) 8.9 % (0.0-12.0); Neutrophils # (auto) 5.2 10 ^3/uL (1.6-8.6); Neutrophils % (auto) 67.3 % (37.0-80.0); Red Blood Cells 4.24 10^6/uL (4.5-5.90); Red Cell Distribution Width 13.3 % (11.8-14.3); White Blood Cell 7.7 10^3/uL (4.4-10.8)
[2021-01-17 23:41] LABS: INR 1.19 (0.9-1.15); Partial Thromboplastin Time 24.5 sec (23.6-33.0)
[2021-01-17 23:49] LABS: Albumin 3.9 g/dL (3.4-5.0); Calcium 8.3 mg/dL (8.5-10.1); Magnesium 1.4 mg/dL (1.6-2.6); Potassium 3.4 mmol/L (3.5-5.1)
[2021-01-17 23:54] LABS: BUN/Creatinine Ratio 8.6; Bilirubin, Total 1.6 mg/dL (0.2-1.0); Total Protein 6.5 g/dL (6.4-8.2)
[2021-01-18 02:50] LABS: Urine Bacteria NONE SEEN /hpf (None Seen); Urine Blood Negative /uL (Negative); Urine Specific Gravity 1.009 (1.001-1.035); Urine WBC <1 /hpf (0 - 3)
[2021-01-18] MEDS ORDERED: ASPirin 325 MG TAB PO ONE (04:30)
[2021-01-18 08:09] VITALS: BP 133/56
== END 2021-01-18 11:18 | disposition home or self-care (01) ==
LOC: ER 21:58
DX: R07.89 Other chest pain (principal); R41.82 Altered mental status, unspecified; F41.9 Anxiety disorder, unspecified; F32.9 Major depressive disorder, single episode, unspecified; E78.5 Hyperlipidemia, unspecified; I10 Essential (primary) hypertension; Z87.891 Personal history of nicotine dependence
CPT/HCPCS: 36415; 71045; 80053; 81001; 83735; 83880; 84443; 84484; 85025; 85610; 85730; 93005

== ENCOUNTER 2021-05-16 05:39 | Emergency (ER) | payer OTHER ==
[~2021-05-16] VITALS: Ht 160 cm; Wt 88.7 kg
[2021-05-16 06:26] LABS: Basophils # (auto) 0.1 10 ^3/uL (0-0.2); Eosinophils # (auto) 0.1 10 ^3/uL (0-0.8); Monocytes # (auto) 0.6 10 ^3/uL (0-1.3)
[2021-05-16 06:27] LABS: Eosinophils % (auto) 1.2 % (0.0-7.0); Hematocrit 37.5 % (41.0-53.0); Lymphocytes % (auto) 27.2 % (10.0-50.0); Mean Corpuscular Hemoglobin 30.7 pg (28.0-32.0); Mean Corpuscular Volume 82.3 fL (80.0-100.0); Monocytes % (auto) 7.9 % (0.0-12.0); Neutrophils # (auto) 4.6 10 ^3/uL (1.6-8.6); Neutrophils % (auto) 62.7 % (37.0-80.0); Nucleated Red Blood Cells % 0.3 %; Red Blood Cells 4.56 10^6/uL (4.5-5.90); Red Cell Distribution Width 13.5 % (11.8-14.3); White Blood Cell 7.4 10^3/uL (4.4-10.8)
[2021-05-16 06:34] LABS: Mean Corpuscular Hgb Conc. 37.3 g/dL (32.0-36.0)
[2021-05-16 06:41] LABS: Albumin 4.4 g/dL (3.4-5.0); BUN/Creatinine Ratio 6.9; Calcium 9.8 mg/dL (8.5-10.1); Potassium 3.5 mmol/L (3.5-5.1)
[2021-05-16 06:46] LABS: Bilirubin, Total 0.4 mg/dL (0.2-1.0); Total Protein 7.4 g/dL (6.4-8.2)
[2021-05-16] MEDS ORDERED: ASPirin 81 mg TAB PO ONE (08:00)
[2021-05-16] MEDS ORDERED: SODIUM CHLORIDE 0.9% 1,000 ML IV ONE (08:00)
[2021-05-16 08:36] VITALS: BP 139/97
[2021-05-16] MEDS ORDERED: ONDANSETRON HCL 4 MG/2 ML VIAL IV ONE (08:45)
[2021-05-16 10:35] LABS: INR 1.12 (0.9-1.15); Partial Thromboplastin Time 27.9 sec (23.6-33.0)
[2021-05-16] MEDS ORDERED: MAGNESIUM OXIDE 400 MG TAB PO ONE (11:00)
== END 2021-05-16 11:20 | disposition left against medical advice (07) ==
LOC: ER 05:39
DX: R07.89 Other chest pain (principal); E87.1 Hypo-osmolality and hyponatremia; I25.9 Chronic ischemic heart disease, unspecified; F20.9 Schizophrenia, unspecified; I12.9 Hypertensive chronic kidney disease with stage 1 through stage 4 chronic kidney disease, or unspecified chronic kidney disease; N18.30 Chronic kidney disease, stage 3 unspecified; K21.9 Gastro-esophageal reflux disease without esophagitis; E78.5 Hyperlipidemia, unspecified; I25.2 Old myocardial infarction; Z86.69 Personal history of other diseases of the nervous system and sense organs; Z87.891 Personal history of nicotine dependence; Z79.1 Long term (current) use of non-steroidal anti-inflammatories (NSAID); Z79.899 Other long term (current) drug therapy
CPT/HCPCS: 36415; 71045; 80053; 83735; 83880; 84443; 84484; 85025; 85379; 85610; 85730; 93005; 96361; 96374; 99285; J2405; J7030

== ENCOUNTER 2021-05-21 10:06 | Emergency (ER) | payer OTHER ==
[~2021-05-21] VITALS: Ht 160 cm; Wt 90.3 kg
[2021-05-21 10:22] VITALS: BP 146/91
[2021-05-21] MEDS ORDERED: LIDOCAINE 1% HCL (LOCAL ANESTH.) INJ 20ML MDV IJ ONE (10:30)
[2021-05-21] MEDS ORDERED: CEPH500C PO (10:56)
[2021-05-21] MEDS ORDERED: ACET-1080 PO (10:56)
[2021-05-21] MEDS ORDERED: TETANUS-DIPTH-ACEL PERTUSSIS 0.5ML SYR Tdap IM ONE (11:00)
== END 2021-05-21 11:16 | disposition home or self-care (01) ==
LOC: ER 10:06
DX: S61.412A Laceration without foreign body of left hand, initial encounter (principal); I10 Essential (primary) hypertension; I25.2 Old myocardial infarction; E78.5 Hyperlipidemia, unspecified; K21.9 Gastro-esophageal reflux disease without esophagitis; Z87.891 Personal history of nicotine dependence; Z79.899 Other long term (current) drug therapy; W26.8XXA Contact with other sharp object(s), not elsewhere classified, initial encounter; Y93.89 Activity, other specified; Y92.89 Other specified places as the place of occurrence of the external cause; Y99.8 Other external cause status
CPT/HCPCS: 12002; 90471; 90715; 99283; J2001

== ENCOUNTER 2021-06-08 09:30 | Emergency (ER) | payer OTHER ==
[~2021-06-08] VITALS: Ht 160 cm; Wt 80.3 kg
[~2021-06-08 09:30] MED LIST changes: +ACET-1080 PO; +CEPH500C PO
[2021-06-08 10:31] VITALS: BP 133/85
== END 2021-06-08 11:09 | disposition home or self-care (01) ==
LOC: ER 09:30
DX: S61.412D Laceration without foreign body of left hand, subsequent encounter (principal); E11.9 Type 2 diabetes mellitus without complications; E78.5 Hyperlipidemia, unspecified; I25.2 Old myocardial infarction; K21.9 Gastro-esophageal reflux disease without esophagitis; Z79.1 Long term (current) use of non-steroidal anti-inflammatories (NSAID); Z79.899 Other long term (current) drug therapy; W25.XXXD Contact with sharp glass, subsequent encounter

== ENCOUNTER 2021-06-18 13:27 | Inpatient (IN) | payer OTHER, MEDICAID ==
[~2021-06-18] VITALS: Ht 177.8 cm; Wt 86.6 kg
[2021-06-18] MEDS ORDERED: ACTIVATED CHARCOAL 50 GM/240 ML SOL PO ONE (13:45)
[2021-06-18 14:37] LABS: Basophils # (auto) 0 10 ^3/uL (0-0.2); Basophils % (auto) 0.5 % (0.0-2.0); Eosinophils # (auto) 0.1 10 ^3/uL (0-0.8); Eosinophils % (auto) 1.3 % (0.0-7.0); Hematocrit 34.8 % (41.0-53.0); Hemoglobin 12.5 g/dL (13.5-17.5); Lymphocytes # (auto) 1.5 10 ^3/uL (0.4-5.4); Lymphocytes % (auto) 24.9 % (10.0-50.0); Mean Corpuscular Hemoglobin 30.8 pg (28.0-32.0); Mean Corpuscular Volume 85.4 fL (80.0-100.0); Monocytes # (auto) 0.5 10 ^3/uL (0-1.3); Monocytes % (auto) 7.4 % (0.0-12.0); Neutrophils # (auto) 4.1 10 ^3/uL (1.6-8.6); Neutrophils % (auto) 65.9 % (37.0-80.0); Nucleated Red Blood Cells % 0.1 %; Red Blood Cells 4.08 10^6/uL (4.5-5.90); Red Cell Distribution Width 13.3 % (11.8-14.3); White Blood Cell 6.2 10^3/uL (4.4-10.8)
[2021-06-18 15:00] LABS: Albumin 4.1 g/dL (3.4-5.0); Anion Gap 8 (5-15); Blood Alcohol < 3.0 mg/dL (0-5); Blood Urea Nitrogen 22 mg/dL (7-18); Calcium 8.7 mg/dL (8.5-10.1); Carbon Dioxide 21 mmol/L (21-32); Chloride 102 mmol/L (98-107); Glucose 158 mg/dL (74-106); Potassium 3.7 mmol/L (3.5-5.1); Sodium 131 mmol/L (136-145)
[2021-06-18] MEDS ORDERED: SODIUM CHLORIDE 0.9% 1,000 ML IV ONE (15:00)
[2021-06-18 15:02] LABS: Salicylate < 1.7 mg/dL (2.8-20.0)
[2021-06-18 15:03] LABS: Alanine Aminotransferase 42 U/L (16-61); Alkaline Phosphatase 48 U/L (45-117); Aspartate Aminotransferase 33 U/L (15-37); BUN/Creatinine Ratio 10.8; Bilirubin, Total 0.4 mg/dL (0.2-1.0); GFR African American 45 mL/min; GFR Non-African American 38 mL/min; Magnesium 2.3 mg/dL (1.6-2.6); Total Protein 6.8 g/dL (6.4-8.2)
[2021-06-18 15:08] LABS: Acetaminophen < 2.0 ug/mL (10-30)
[2021-06-18] MEDS ORDERED: SODIUM CHLORIDE 0.9% 3,000 ML IV SCH (18:30)
[2021-06-18] MEDS ORDERED: SODIUM CHLORIDE 0.9% 2,000 ML IV ONE (18:30)
[2021-06-18] MEDS ORDERED: MORPHINE SULFATE 4 MG/ML SYR/VIAL IV PRN (18:30)
[2021-06-18] MEDS ORDERED: NICOTINE 14 MG/24HR TOPICAL PATCH TD ONE (18:30)
[2021-06-18] MEDS ORDERED: hydrALAZINE HCL 20 MG/ML VL IV PRN (18:30)
[2021-06-18] MEDS ORDERED: DEXTROSE (50%) 50ML SYRG IV PRN (18:30)
[2021-06-18] MEDS ORDERED: ONDANSETRON HCL 4 MG/2 ML VIAL IV PRN (18:30)
[2021-06-18 18:34] LABS: Urine Bacteria FEW /hpf (None Seen); Urine Blood Negative /uL (Negative); Urine Specific Gravity 1.008 (1.001-1.035); Urine WBC 1 /hpf (0 - 3)
[2021-06-18] MEDS ORDERED: LEVE750T3 PO (18:36)
[2021-06-18 18:51] LABS: Alcohol, Urine < 3.0 mg/dL (0-10); Amphetamine Screen, Urine NEGATIVE (NEGATIVE); Barbiturate Scree,Urine NEGATIVE (NEGATIVE); Benzodiazephine Screen, Urine POSITIVE (NEGATIVE); Cannabinoid Screen, Urine NEGATIVE (NEGATIVE); Cocaine Screen, Urine NEGATIVE (NEGATIVE); Opiate Scree,Urine NEGATIVE (NEGATIVE); Phencyclidine Screen, Urine NEGATIVE (NEGATIVE)
[2021-06-18 19:09] LABS: Cholesterol 197 mg/dL (< 200)
[2021-06-18 19:12] LABS: HDL Cholesterol 29 mg/dL (40-59); Triglycerides 750 mg/dL (< 150)
[2021-06-18 19:44] LABS: INR 1.27 (0.9-1.15)
[2021-06-18 21:00] VITALS: BP 132/80
[2021-06-19] MEDS ORDERED: LISI20TA28 PO ×2 (01:36→10:48)
[2021-06-19] MEDS ORDERED: CLON0.2D6 PO (01:36)
[2021-06-19 04:00] VITALS: BP 143/91
[2021-06-19] MEDS: InsuLIN REG 1unit/0.01ml Soln (100units/ml) SC SCH ×5 (06:00→23:13)
[2021-06-19 06:24] LABS: Basophils # (auto) 0 10 ^3/uL (0-0.2); Basophils % (auto) 0.8 % (0.0-2.0); Eosinophils # (auto) 0.1 10 ^3/uL (0-0.8); Eosinophils % (auto) 1.7 % (0.0-7.0); Hematocrit 35.1 % (41.0-53.0); Hemoglobin 12.6 g/dL (13.5-17.5); Lymphocytes # (auto) 2.3 10 ^3/uL (0.4-5.4); Mean Corpuscular Hemoglobin 30.7 pg (28.0-32.0); Mean Corpuscular Hgb Conc. 35.9 g/dL (32.0-36.0); Mean Corpuscular Volume 85.5 fL (80.0-100.0); Monocytes # (auto) 0.4 10 ^3/uL (0-1.3); Monocytes % (auto) 7.1 % (0.0-12.0); Neutrophils # (auto) 3.1 10 ^3/uL (1.6-8.6); Neutrophils % (auto) 51.4 % (37.0-80.0); Nucleated Red Blood Cells % 0.2 %; Red Cell Distribution Width 13.7 % (11.8-14.3)
[2021-06-19] MEDS: ACCU-CHEK COMFORT CURVE STRIP VI SCH ×5 (06:28→23:13)
[2021-06-19 06:42] LABS: Potassium 3.8 mmol/L (3.5-5.1)
[2021-06-19 06:44] LABS: BUN/Creatinine Ratio 10.6; Calcium 9.2 mg/dL (8.5-10.1)
[2021-06-19 06:57] LABS: Bilirubin, Total 0.3 mg/dL (0.2-1.0); Total Protein 6.5 g/dL (6.4-8.2)
[2021-06-19 09:00] VITALS: BP 144/96
[2021-06-19 09:21] VITALS: BP 107/68
[2021-06-19] MEDS: NICOTINE 14 MG/24HR TOPICAL PATCH TD SCH (10:00)
[2021-06-19] MEDS ORDERED: ALPR2TAB6 PO (10:44)
[2021-06-19] MEDS ORDERED: PALI3TAB PO (10:45)
[2021-06-19] MEDS ORDERED: FENO160T8 PO (10:46)
[2021-06-19] MEDS ORDERED: OME20T PO (10:47)
[2021-06-19] MEDS ORDERED: BUPR75TA11 PO (10:49)
[2021-06-19] MEDS ORDERED: buPROPion HCL 75 MG TAB PO ONE (11:15)
[2021-06-19] MEDS ORDERED: LISINOPRIL 20 MG TAB PO ONE (11:15)
[2021-06-19] MEDS ORDERED: ASPirin 81 mg TAB PO ONE (11:15)
[2021-06-19] MEDS ORDERED: MORPHINE SULFATE INJECTION 2 MG/ML SYRG IV PRN (11:30)
[2021-06-19 17:00] VITALS: BP 144/92
[2021-06-19] MEDS ORDERED: ACETAMINOPHEN 325 MG TAB PO PRN (18:15)
[2021-06-19] MEDS: ALPRAZolam 0.25 MG TAB PO PRN (18:29)
[2021-06-19 19:21] LABS: Protein, Urine 32.6 mg/dL (0.0-11.9)
[2021-06-19 22:00] VITALS: BP 130/86
[2021-06-19] MEDS: HYDROCORTISONE 2.5% TOPICAL CREAM 30GM TUBE PR SCH (22:00)
[2021-06-19] MEDS: buPROPion HCL 75 MG TAB PO SCH (23:12)
[2021-06-19] MEDS ORDERED: LORazepam 2MG/ML-1ML VIAL IV PRN (23:30)
[2021-06-20 05:00] VITALS: BP 132/85
[2021-06-20] MEDS: ACCU-CHEK COMFORT CURVE STRIP VI SCH ×2 (06:00→12:09)
[2021-06-20] MEDS: InsuLIN REG 1unit/0.01ml Soln (100units/ml) SC SCH ×2 (06:00→12:00)
[2021-06-20 08:00] VITALS: BP 159/100
[2021-06-20 08:58] VITALS: BP 151/93
[2021-06-20] MEDS: HYDROCORTISONE 2.5% TOPICAL CREAM 30GM TUBE PR SCH ×2 (09:58→22:00)
[2021-06-20] MEDS: LISINOPRIL 20 MG TAB PO SCH (09:58)
[2021-06-20] MEDS: ASPirin 81 mg TAB PO SCH (09:58)
[2021-06-20] MEDS: NICOTINE 14 MG/24HR TOPICAL PATCH TD SCH (10:00)
[2021-06-20] MEDS: buPROPion HCL 75 MG TAB PO SCH ×2 (12:10→23:26)
[2021-06-20 12:39] VITALS: BP 145/100
[2021-06-20 14:42] LABS: BUN/Creatinine Ratio 11.6; Calcium 9.6 mg/dL (8.5-10.1); Potassium 3.6 mmol/L (3.5-5.1)
[2021-06-20 16:30] VITALS: BP 155/99
[2021-06-20] MEDS: ALPRAZolam 0.25 MG TAB PO PRN (18:39)
[2021-06-20 21:34] VITALS: BP 125/72
[2021-06-20] MEDS ORDERED: ALPRAZolam 0.5 MG TAB PO SCH (22:00)
[2021-06-21 04:57] VITALS: BP 108/69
[2021-06-21 05:33] LABS: Potassium 3.8 mmol/L (3.5-5.1)
[2021-06-21 05:38] LABS: BUN/Creatinine Ratio 15.2; Calcium 9.6 mg/dL (8.5-10.1)
[2021-06-21 08:00] VITALS: BP 116/72
[2021-06-21] MEDS ORDERED: PALIPERIDONE 6 MG PO SCH (10:00)
[2021-06-21] MEDS: NICOTINE 14 MG/24HR TOPICAL PATCH TD SCH (10:00)
[2021-06-21] MEDS: ASPirin 81 mg TAB PO SCH (10:14)
[2021-06-21] MEDS: LISINOPRIL 20 MG TAB PO SCH (10:15)
[2021-06-21] MEDS: HYDROCORTISONE 2.5% TOPICAL CREAM 30GM TUBE PR SCH (10:16)
[2021-06-21] MEDS: ALPRAZolam 0.25 MG TAB PO PRN (11:15)
[2021-06-21 12:00] VITALS: BP 127/79
[2021-06-21] MEDS: buPROPion HCL 75 MG TAB PO SCH (12:57)
[2021-06-21] MEDS ORDERED: ASPI1CHW15 PO (15:45)
[2021-06-21] MEDS ORDERED: LISI20TA28 PO (15:46)
[2021-06-21] MEDS ORDERED: BUPR75TA10 PO (15:46)
[2021-06-21 16:00] VITALS: BP 123/75
[2021-06-21 16:31] VITALS: BP 127/79
== END 2021-06-21 17:18 | disposition home or self-care (01) | DRG 918 ==
LOC: EDBD 13:27 → ER 13:34 → EAST 18:29
PROVIDERS: ADMIT Registered Nurse; ATTEND Internal Medicine Geriatric Medicine
DX: T43.291A Poisoning by other antidepressants, accidental (unintentional), initial encounter (principal); G40.409 Other generalized epilepsy and epileptic syndromes, not intractable, without status epilepticus; E11.22 Type 2 diabetes mellitus with diabetic chronic kidney disease; F20.9 Schizophrenia, unspecified; F32.A Depression, unspecified; E66.9 Obesity, unspecified; K21.9 Gastro-esophageal reflux disease without esophagitis; F41.9 Anxiety disorder, unspecified; N18.31 Chronic kidney disease, stage 3a; R07.89 Other chest pain; Z20.822 Contact with and (suspected) exposure to COVID-19; I12.9 Hypertensive chronic kidney disease with stage 1 through stage 4 chronic kidney disease, or unspecified chronic kidney disease; E78.5 Hyperlipidemia, unspecified; F17.210 Nicotine dependence, cigarettes, uncomplicated; Z53.20 Procedure and treatment not carried out because of patient's decision for unspecified reasons; Z68.27 Body mass index [BMI] 27.0-27.9, adult; Z82.49 Family history of ischemic heart disease and other diseases of the circulatory system; Z82.5 Family history of asthma and other chronic lower respiratory diseases; Z82.62 Family history of osteoporosis; Z83.3 Family history of diabetes mellitus; Z87.11 Personal history of peptic ulcer disease; Y92.89 Other specified places as the place of occurrence of the external cause
CPT/HCPCS: 36415; 71045; 74176; 76775; 80048; 80053; 80061; 80307; 80320; 80329; 81001; 82542; 82570; 82962; 83036; 83735; 84156; 84484; 85025; 85610; 93005; 93306; 96360; 96361; 97163; G0378

== ENCOUNTER 2021-08-09 10:58 | Emergency (ER) | payer OTHER, MEDICAID ==
[~2021-08-09] VITALS: Ht 165.1 cm; Wt 63.5 kg
[~2021-08-09 10:58] MED LIST changes: -ACET-1080 PO; +ALPR2TAB6 PO; +ASPI1CHW15 PO; +BUPR75TA10 PO; +BUPR75TA11 PO; -CEPH500C PO; +CLON0.2D6 PO; +FENO160T8 PO; -LEVE500T3 PO; +LISI20TA28 PO; -LORA2TAB12 PO; +OME20T PO; +PALI3TAB PO; -SUCR1SUS16 PO
[2021-08-09 11:59] LABS: Basophils # (auto) 0.1 10 ^3/uL (0-0.2); Basophils % (auto) 1.6 % (0.0-2.0); Eosinophils # (auto) 0 10 ^3/uL (0-0.8); Eosinophils % (auto) 0.4 % (0.0-7.0); Hematocrit 38.3 % (41.0-53.0); Hemoglobin 13.8 g/dL (13.5-17.5); Lymphocytes # (auto) 1.1 10 ^3/uL (0.4-5.4); Mean Corpuscular Hemoglobin 30.3 pg (28.0-32.0); Mean Corpuscular Volume 84.3 fL (80.0-100.0); Monocytes # (auto) 0.3 10 ^3/uL (0-1.3); Monocytes % (auto) 4.6 % (0.0-12.0); Neutrophils # (auto) 4.7 10 ^3/uL (1.6-8.6); Neutrophils % (auto) 75.4 % (37.0-80.0); Nucleated Red Blood Cells % 0.5 %; Red Blood Cells 4.54 10^6/uL (4.5-5.90); Red Cell Distribution Width 12.7 % (11.8-14.3); White Blood Cell 6.2 10^3/uL (4.4-10.8)
[2021-08-09 12:17] LABS: Potassium 3.4 mmol/L (3.5-5.1)
[2021-08-09 12:22] LABS: Salicylate < 1.7 mg/dL (2.8-20.0)
[2021-08-09 12:26] LABS: Albumin 4.7 g/dL (3.4-5.0); BUN/Creatinine Ratio 7.6; Bilirubin, Total 0.2 mg/dL (0.2-1.0); Calcium 9.6 mg/dL (8.5-10.1); Total Protein 7.9 g/dL (6.4-8.2)
[2021-08-09 12:29] LABS: Acetaminophen < 2.0 ug/mL (10-30)
[2021-08-09 13:49] LABS: Urine Bacteria NONE SEEN /hpf (None Seen); Urine Blood Negative /uL (Negative); Urine Specific Gravity 1.005 (1.001-1.035); Urine WBC <1 /hpf (0 - 3)
[2021-08-09 13:57] LABS: Alcohol, Urine < 3.0 mg/dL (0-10); Amphetamine Screen, Urine NEGATIVE (NEGATIVE); Barbiturate Scree,Urine NEGATIVE (NEGATIVE); Benzodiazephine Screen, Urine NEGATIVE (NEGATIVE); Cannabinoid Screen, Urine NEGATIVE (NEGATIVE); Cocaine Screen, Urine NEGATIVE (NEGATIVE); Opiate Scree,Urine NEGATIVE (NEGATIVE); Phencyclidine Screen, Urine NEGATIVE (NEGATIVE)
[2021-08-09] MEDS ORDERED: POTASSIUM EFFERVESENT TAB 25 MEQ PO ONE (16:15)
[2021-08-09] MEDS ORDERED: LORazepam 0.5 MG TAB PO ONE (18:30)
[2021-08-10 01:05] VITALS: BP 141/88
== END 2021-08-10 01:12 | disposition home or self-care (01) ==
LOC: ER 10:58 → EDBD 10:58 → ER 08-10 01:12
DX: T45.0X1A Poisoning by antiallergic and antiemetic drugs, accidental (unintentional), initial encounter (principal); E87.6 Hypokalemia; F41.9 Anxiety disorder, unspecified; I10 Essential (primary) hypertension; I25.2 Old myocardial infarction; E11.9 Type 2 diabetes mellitus without complications; E78.5 Hyperlipidemia, unspecified; K21.9 Gastro-esophageal reflux disease without esophagitis; Z79.82 Long term (current) use of aspirin; Z79.1 Long term (current) use of non-steroidal anti-inflammatories (NSAID); Z79.899 Other long term (current) drug therapy; Z20.822 Contact with and (suspected) exposure to COVID-19; Y92.89 Other specified places as the place of occurrence of the external cause
CPT/HCPCS: 36415; 80053; 80307; 80329; 81001; 85025; 93005

== ENCOUNTER 2021-12-08 12:45 | Inpatient (IN) | payer OTHER, MEDICAID ==
[~2021-12-08] VITALS: Ht 162.6 cm; Wt 84.5 kg
[2021-12-08 14:13] LABS: Basophils # (auto) 0 10 ^3/uL (0-0.2); Basophils % (auto) 0.3 % (0.0-2.0); Eosinophils # (auto) 0 10 ^3/uL (0-0.8); Eosinophils % (auto) 0.4 % (0.0-7.0); Hematocrit 38.5 % (41.0-53.0); Hemoglobin 13.2 g/dL (13.5-17.5); Lymphocytes # (auto) 1.7 10 ^3/uL (0.4-5.4); Mean Corpuscular Hemoglobin 29.9 pg (28.0-32.0); Mean Corpuscular Hgb Conc. 34.3 g/dL (32.0-36.0); Mean Corpuscular Volume 87.1 fL (80.0-100.0); Monocytes # (auto) 0.6 10 ^3/uL (0-1.3); Monocytes % (auto) 5.1 % (0.0-12.0); Neutrophils # (auto) 8.5 10 ^3/uL (1.6-8.6); Neutrophils % (auto) 78.2 % (37.0-80.0); Red Blood Cells 4.42 10^6/uL (4.5-5.90); Red Cell Distribution Width 14.8 % (11.8-14.3); White Blood Cell 10.8 10^3/uL (4.4-10.8)
[2021-12-08 14:35] LABS: Albumin 4.5 g/dL (3.4-5.0); Calcium 9.3 mg/dL (8.5-10.1); Potassium 5.2 mmol/L (3.5-5.1)
[2021-12-08 14:39] LABS: BUN/Creatinine Ratio 6.1; Bilirubin, Total 0.6 mg/dL (0.2-1.0); Total Protein 7.7 g/dL (6.4-8.2)
[2021-12-08] MEDS ORDERED: LORazepam 2MG/ML-1ML VIAL IV ONE (15:15)
[2021-12-08] MEDS ORDERED: IPRATROPIUM BROM 0.5 MG/2.5ML INH SOL NEB ONE ×2 (16:15→16:45)
[2021-12-08] MEDS ORDERED: ALBUTEROL SULF 2.5 MG/0.5ML(0.5%) NEB SOLN NEB ONE ×2 (16:15→16:45)
[2021-12-08] MEDS ORDERED: SODIUM CHLORIDE 0.9% 1,000 ML IV ONE (16:30)
[2021-12-08] MEDS ORDERED: IOHEXOL 350 MG/ML 100ML IJ ONE (16:37)
[2021-12-08] MEDS ORDERED: methylPREDNISolone SOD SUCC 125 MG/2 ML VL IV ONE (16:45)
[2021-12-08] MEDS ORDERED: HYDROcodone-ACET 5/325MG TAB PO PRN (17:30)
[2021-12-08] MEDS ORDERED: NITROGLYCERIN 0.4 MG SL TAB SL PRN (17:30)
[2021-12-08] MEDS ORDERED: SODIUM CHLORIDE 0.9% 1,000 ML IV SCH (17:30)
[2021-12-08] MEDS ORDERED: SODIUM ZIRCONIUM CYCL 10 GM PAK PO ONE ×2 (17:30→18:50)
[2021-12-08] MEDS ORDERED: MORPHINE SULFATE INJ 2 MG/ml SYRG IV PRN ×2 (17:30)
[2021-12-08] MEDS ORDERED: ACETAMINOPHEN 325 MG TAB PO PRN (17:30)
[2021-12-08] MEDS ORDERED: ONDANSETRON HCL 4 MG/2 ML VIAL IV PRN (17:30)
[2021-12-08 19:05] LABS: INR 2.54 (0.9-1.15)
[2021-12-08] MEDS: LORazepam 2MG/ML-1ML VIAL IV PRN (20:37)
[2021-12-08 21:00] VITALS: BP 107/59
[2021-12-08 21:10] VITALS: BP 106/58
[2021-12-08] MEDS: buPROPion HCL 75 MG TAB PO SCH (22:23)
[2021-12-08 23:07] VITALS: BP 124/63
[2021-12-09] VITALS (69 sets, daily range): BP systolic 89–124; BP diastolic 43–70
[2021-12-09] MEDS ORDERED: SODIUM BICARBONATE 8.4 % INJ 50ML VIAL IV ONE ×4 (00:15→05:28)
[2021-12-09] MEDS ORDERED: LORazepam 2MG/ML-1ML VIAL IV ONE ×2 (00:15→03:00)
[2021-12-09] MEDS ORDERED: SODIUM BICARBONATE 50ML VIAL 100 ML in SOD CHL 0.45% 1,000 ML IV SCH (00:15)
[2021-12-09] MEDS ORDERED: SODIUM BICARBONATE 8.4% INJ 50ML SYRINGE ONE ×3 (00:16→05:28)
[2021-12-09 01:14] LABS: Basophils # (auto) 0 10 ^3/uL (0-0.2); Basophils % (auto) 0.1 % (0.0-2.0); Eosinophils # (auto) 0 10 ^3/uL (0-0.8); Eosinophils % (auto) 0.1 % (0.0-7.0); Hematocrit 31.1 % (41.0-53.0); Hemoglobin 11.2 g/dL (13.5-17.5); Lymphocytes # (auto) 0.5 10 ^3/uL (0.4-5.4); Lymphocytes % (auto) 8.6 % (10.0-50.0); Mean Corpuscular Hemoglobin 31.4 pg (28.0-32.0); Mean Corpuscular Volume 87.2 fL (80.0-100.0); Monocytes # (auto) 0.1 10 ^3/uL (0-1.3); Monocytes % (auto) 1.1 % (0.0-12.0); Neutrophils # (auto) 5.4 10 ^3/uL (1.6-8.6); Neutrophils % (auto) 90.1 % (37.0-80.0); Nucleated Red Blood Cells % 0.1 %; Red Blood Cells 3.57 10^6/uL (4.5-5.90); Red Cell Distribution Width 15.6 % (11.8-14.3)
[2021-12-09 01:33] LABS: Albumin 3.7 g/dL (3.4-5.0); Calcium 8.1 mg/dL (8.5-10.1); Potassium 4.1 mmol/L (3.5-5.1)
[2021-12-09 01:35] LABS: BUN/Creatinine Ratio 8.1
[2021-12-09 01:38] LABS: Bilirubin, Total 0.7 mg/dL (0.2-1.0); Total Protein 6.6 g/dL (6.4-8.2)
[2021-12-09] MEDS ORDERED: ALBUTEROL SULF 2.5 MG/0.5ML(0.5%) NEB SOLN ONE (02:15)
[2021-12-09] MEDS ORDERED: ALBUTEROL SULF 2.5 MG/0.5ML(0.5%) NEB SOLN NEB ONE (02:15)
[2021-12-09] MEDS ORDERED: IPRATROPIUM BROM 0.5 MG/2.5ML INH SOL ONE (02:15)
[2021-12-09] MEDS ORDERED: IPRATROPIUM BROM 0.5 MG/2.5ML INH SOL NEB ONE (02:15)
[2021-12-09] MEDS ORDERED: LORazepam 2MG/ML-1ML VIAL IM ONE (03:00)
[2021-12-09] MEDS ORDERED: SODIUM CHLORIDE 0.9% 1,000 ML IV SCH (03:45)
[2021-12-09] MEDS ORDERED: BUMETANIDE 2.5mg/10ml (0.25 mg/ml) INJ IV ONE (04:00)
[2021-12-09] MEDS ORDERED: SODIUM BICARBONATE 50ML VIAL 75 ML in D5W 5% 1,000 ML IV SCH (04:00)
[2021-12-09] MEDS ORDERED: SODIUM BICARBONATE 50ML VIAL 150 ML in D5W 5% 1,000 ML IV SCH (05:15)
[2021-12-09] MEDS: ALBUTEROL SULF 2.5 MG/0.5ML(0.5%) NEB SOLN NEB SCH ×3 (05:54→19:10)
[2021-12-09] MEDS: IPRATROPIUM BROM 0.5 MG/2.5ML INH SOL NEB SCH ×3 (05:54→19:11)
[2021-12-09] MEDS ORDERED: PALI156I IM (07:41)
[2021-12-09] MEDS ORDERED: MIRT1TAB38 PO (07:41)
[2021-12-09] MEDS ORDERED: CLON-857 PO (07:41)
[2021-12-09] MEDS ORDERED: TEMA30CA PO (07:41)
[2021-12-09] MEDS ORDERED: CHLO25TA2 PO (07:41)
[2021-12-09 08:49] LABS: BUN/Creatinine Ratio 10.4; Calcium 8.4 mg/dL (8.5-10.1)
[2021-12-09] MEDS: SODIUM CHLORIDE 0.9% 1,000 ML IV SCH ×2 (11:15→17:55)
[2021-12-09] MEDS ORDERED: POTASSIUM EFFERVESENT TAB 25 MEQ PO ONE (11:15)
[2021-12-09] MEDS: POTASSIUM CHL 20MEQ/100ML 100 ML IV SCH ×2 (11:30→13:30)
[2021-12-09 11:42] LABS: Magnesium 1.4 mg/dL (1.6-2.6); Phosphorus 3.3 mg/dL (2.5-4.90)
[2021-12-09] MEDS: buPROPion HCL 75 MG TAB PO SCH ×2 (12:18→18:44)
[2021-12-09] MEDS: ENOXAPARIN SOD 30 MG/0.3 ML SYRINGE SC SCH (12:18)
[2021-12-09] MEDS: DOCUSATE SOD 100 MG CAP PO PRN (12:18)
[2021-12-09] MEDS: cefTRIAXone 1GM/50ML D5W 50 ML IV SCH (12:19)
[2021-12-09] MEDS: AZITHROMYCIN 500MG/ 250ML 250 ML IV SCH (12:20)
[2021-12-09] MEDS ORDERED: LACTULOSE 20Gm/30ML SOLN PO ONE (12:45)
[2021-12-09] MEDS ORDERED: PANTOPRAZOLE 40 MG/10 ML VIAL INJ IV ONE (13:15)
[2021-12-09 13:18] LABS: BUN/Creatinine Ratio 12.3; Calcium 8.4 mg/dL (8.5-10.1); Potassium 3.5 mmol/L (3.5-5.1)
[2021-12-09 13:56] LABS: Hepatitis C Antibody Negative (Negative)
[2021-12-09] MEDS: MAGNESIUM SULFATE 1GM/100ML 100 ML IV SCH ×2 (14:00→20:00)
[2021-12-10] VITALS (34 sets, daily range): BP systolic 106–139; BP diastolic 57–87
[2021-12-10] MEDS: IPRATROPIUM BROM 0.5 MG/2.5ML INH SOL NEB SCH ×4 (00:12→18:36)
[2021-12-10] MEDS: ALBUTEROL SULF 2.5 MG/0.5ML(0.5%) NEB SOLN NEB SCH ×4 (00:12→18:36)
[2021-12-10] MEDS: SODIUM CHLORIDE 0.9% 1,000 ML IV SCH ×2 (01:48→11:45)
[2021-12-10 05:05] LABS: Basophils # (auto) 0 10 ^3/uL (0-0.2); Basophils % (auto) 0.2 % (0.0-2.0); Eosinophils # (auto) 0 10 ^3/uL (0-0.8); Eosinophils % (auto) 0.4 % (0.0-7.0); Hematocrit 27.7 % (41.0-53.0); Hemoglobin 9.8 g/dL (13.5-17.5); Lymphocytes # (auto) 1.6 10 ^3/uL (0.4-5.4); Lymphocytes % (auto) 28.4 % (10.0-50.0); Mean Corpuscular Hemoglobin 31.2 pg (28.0-32.0); Mean Corpuscular Hgb Conc. 35.5 g/dL (32.0-36.0); Mean Corpuscular Volume 87.9 fL (80.0-100.0); Monocytes # (auto) 0.3 10 ^3/uL (0-1.3); Monocytes % (auto) 6.2 % (0.0-12.0); Neutrophils # (auto) 3.5 10 ^3/uL (1.6-8.6); Neutrophils % (auto) 64.8 % (37.0-80.0); Red Blood Cells 3.15 10^6/uL (4.5-5.90); Red Cell Distribution Width 15.8 % (11.8-14.3); White Blood Cell 5.5 10^3/uL (4.4-10.8)
[2021-12-10 05:15] LABS: INR 1.54 (0.9-1.15)
[2021-12-10 05:23] LABS: Chloride 109 mmol/L (98-107); Potassium 3.5 mmol/L (3.5-5.1); Sodium 143 mmol/L (136-145)
[2021-12-10 05:29] LABS: Alanine Aminotransferase 30 U/L (16-61); Albumin 3.3 g/dL (3.4-5.0); Alkaline Phosphatase 29 U/L (45-117); Anion Gap 7 (5-15); Aspartate Aminotransferase 86 U/L (15-37); BUN/Creatinine Ratio 15.3; Bilirubin, Total 0.3 mg/dL (0.2-1.0); Blood Urea Nitrogen 29 mg/dL (7-18); Calcium 8.4 mg/dL (8.5-10.1); Carbon Dioxide 27 mmol/L (21-32); Cholesterol 137 mg/dL (< 200); GFR African American 49 mL/min; GFR Non-African American 41 mL/min; Glucose 97 mg/dL (74-106); HDL Cholesterol 18 mg/dL (40-59); Total Protein 5.7 g/dL (6.4-8.2); Triglycerides 403 mg/dL (< 150)
[2021-12-10 08:56] LABS: Urine Bacteria NONE SEEN /hpf (None Seen); Urine Blood 1+ /uL (Negative); Urine Specific Gravity 1.015 (1.001-1.035); Urine WBC <1 /hpf (0 - 3)
[2021-12-10] MEDS: cefTRIAXone 1GM/50ML D5W 50 ML IV SCH (09:00)
[2021-12-10 09:13] LABS: Protein, Urine 23.6 mg/dL (0.0-11.9)
[2021-12-10] MEDS: PANTOPRAZOLE 40 MG/10 ML VIAL INJ IV SCH (10:00)
[2021-12-10] MEDS: buPROPion HCL 75 MG TAB PO SCH ×2 (10:00→22:30)
[2021-12-10] MEDS: ENOXAPARIN SOD 30 MG/0.3 ML SYRINGE SC SCH (10:00)
[2021-12-10] MEDS: AZITHROMYCIN 500MG/ 250ML 250 ML IV SCH (10:00)
[2021-12-11] MEDS: SODIUM CHLORIDE 0.9% 1,000 ML IV SCH ×2 (02:00→07:45)
[2021-12-11 05:19] LABS: Basophils # (auto) 0 10 ^3/uL (0-0.2); Basophils % (auto) 0.4 % (0.0-2.0); Eosinophils # (auto) 0.1 10 ^3/uL (0-0.8); Eosinophils % (auto) 1.4 % (0.0-7.0); Hematocrit 28.5 % (41.0-53.0); Hemoglobin 9.9 g/dL (13.5-17.5); Lymphocytes # (auto) 1.3 10 ^3/uL (0.4-5.4); Lymphocytes % (auto) 33.7 % (10.0-50.0); Mean Corpuscular Hemoglobin 30.8 pg (28.0-32.0); Mean Corpuscular Hgb Conc. 34.6 g/dL (32.0-36.0); Monocytes # (auto) 0.3 10 ^3/uL (0-1.3); Monocytes % (auto) 7.6 % (0.0-12.0); Neutrophils # (auto) 2.3 10 ^3/uL (1.6-8.6); Neutrophils % (auto) 56.9 % (37.0-80.0); Nucleated Red Blood Cells % 0.1 %; Red Cell Distribution Width 15.3 % (11.8-14.3)
[2021-12-11 05:27] VITALS: BP 148/87
[2021-12-11 05:37] LABS: Albumin 3.3 g/dL (3.4-5.0); Calcium 8.5 mg/dL (8.5-10.1); Magnesium 1.4 mg/dL (1.6-2.6); Potassium 3.7 mmol/L (3.5-5.1)
[2021-12-11 05:41] LABS: BUN/Creatinine Ratio 14.3; Bilirubin, Total 0.3 mg/dL (0.2-1.0)
[2021-12-11] MEDS: IPRATROPIUM BROM 0.5 MG/2.5ML INH SOL NEB SCH ×3 (06:41→11:51)
[2021-12-11] MEDS: ALBUTEROL SULF 2.5 MG/0.5ML(0.5%) NEB SOLN NEB SCH ×3 (06:41→11:51)
[2021-12-11] MEDS: cefTRIAXone 1GM/50ML D5W 50 ML IV SCH (08:45)
[2021-12-11] MEDS: DOCUSATE SOD 100 MG CAP PO PRN (08:45)
[2021-12-11] MEDS: LORazepam 2MG/ML-1ML VIAL IV PRN (08:52)
[2021-12-11 09:00] VITALS: BP 136/78
[2021-12-11] MEDS: AZITHROMYCIN 500MG/ 250ML 250 ML IV SCH ×2 (09:53→10:26)
[2021-12-11] MEDS: PANTOPRAZOLE 40 MG/10 ML VIAL INJ IV SCH (09:53)
[2021-12-11] MEDS: ENOXAPARIN SOD 30 MG/0.3 ML SYRINGE SC SCH (09:54)
[2021-12-11] MEDS: buPROPion HCL 75 MG TAB PO SCH (09:54)
[2021-12-11 13:00] VITALS: BP 149/89
[2021-12-11] MEDS ORDERED: MAGNESIUM OXIDE 400 MG TAB PO ONE (15:45)
[2021-12-11] MEDS ORDERED: LORazepam 0.5 MG TAB PO ONE (15:45)
[2021-12-11 16:16] VITALS: BP 121/64
[2021-12-11 17:00] VITALS: BP 147/89
[2021-12-12] MEDS ORDERED: ENOXAPARIN SOD 40 MG/0.4 ML SYRINGE SC SCH (10:00)
== END 2021-12-11 16:40 | disposition home or self-care (01) | DRG 917 ==
LOC: ER 12:45 → TELE 17:20 → TELE-CENTR 20:54 → DOU IN ICU 12-09 04:40 → TELE-EAST 12-11 01:47
PROVIDERS: ADMIT Internal Medicine; ATTEND Internal Medicine Geriatric Medicine
PROC: 5A09357 Assistance with Respiratory Ventilation, Less than 24 Consecutive Hours, Continuous Positive Airway Pressure (ICD-10-PCS; principal; 2021-12-08)
PROC: 5A09357 Assistance with Respiratory Ventilation, Less than 24 Consecutive Hours, Continuous Positive Airway Pressure (ICD-10-PCS; 2021-12-10)
DX: T39.091A Poisoning by salicylates, accidental (unintentional), initial encounter (principal); J18.9 Pneumonia, unspecified organism; J96.01 Acute respiratory failure with hypoxia; N17.9 Acute kidney failure, unspecified; E87.4 Mixed disorder of acid-base balance; J98.11 Atelectasis; E87.1 Hypo-osmolality and hyponatremia; I48.91 Unspecified atrial fibrillation; N18.9 Chronic kidney disease, unspecified; Z20.822 Contact with and (suspected) exposure to COVID-19; I12.9 Hypertensive chronic kidney disease with stage 1 through stage 4 chronic kidney disease, or unspecified chronic kidney disease; D64.9 Anemia, unspecified; E11.22 Type 2 diabetes mellitus with diabetic chronic kidney disease; E78.5 Hyperlipidemia, unspecified; E66.9 Obesity, unspecified; Z68.32 Body mass index [BMI] 32.0-32.9, adult; K21.9 Gastro-esophageal reflux disease without esophagitis; F32.A Depression, unspecified; I95.9 Hypotension, unspecified; T39.015A Adverse effect of aspirin, initial encounter; E87.5 Hyperkalemia; F17.210 Nicotine dependence, cigarettes, uncomplicated; F20.9 Schizophrenia, unspecified; F41.9 Anxiety disorder, unspecified; K59.00 Constipation, unspecified; Z79.899 Other long term (current) drug therapy; Z82.49 Family history of ischemic heart disease and other diseases of the circulatory system; Z82.5 Family history of asthma and other chronic lower respiratory diseases; Z82.62 Family history of osteoporosis; Z83.3 Family history of diabetes mellitus; Z87.11 Personal history of peptic ulcer disease; Y92.89 Other specified places as the place of occurrence of the external cause
CPT/HCPCS: 36415; 36600; 70450; 71046; 71275; 74018; 74176; 76775; 80048; 80053; 80061; 80329; 81001; 82140; 82306; 82570; 82805; 82962; 83036; 83605; 83735; 83970; 84100; 84156; 84300; 84484; 85025; 85379; 85610; 86803; 87081; 87340; 93005; 94640; 94644; 94660; 95819; 96361; 96374; 96375; 99291; C9113; G0378; J0696

== ENCOUNTER 2022-08-30 11:38 | Emergency (ER) | payer OTHER ==
[~2022-08-30] VITALS: Ht 162.6 cm; Wt 82.0 kg
[~2022-08-30 11:38] MED LIST changes: -ALPR2TAB6 PO; +ASPI-736 PO; -ASPI1CHW15 PO; -BUPR75TA10 PO; -BUPR75TA11 PO; +CHLO25TA2 PO; +CLON-857 PO; +FENO160T PO; -FENO160T8 PO; -IBUP600T27 PO; -LISI20TA28 PO; +LISI20TA56 PO; +PALI156I IM; -PALI3TAB PO; -PALI9TAB PO; -SUCR1TAB PO; +TEMA30CA PO
[2022-08-30 12:11] LABS: Basophils # (auto) 0 10 ^3/uL (0-0.2); Basophils % (auto) 0.3 % (0.0-2.0); Eosinophils # (auto) 0.1 10 ^3/uL (0-0.8); Hematocrit 32.7 % (41.0-53.0); Hemoglobin 11.6 g/dL (13.5-17.5); Lymphocytes # (auto) 2.3 10 ^3/uL (0.4-5.4); Lymphocytes % (auto) 31.4 % (10.0-50.0); Mean Corpuscular Hgb Conc. 35.3 g/dL (32.0-36.0); Monocytes # (auto) 0.5 10 ^3/uL (0-1.3); Monocytes % (auto) 6.5 % (0.0-12.0); Neutrophils # (auto) 4.3 10 ^3/uL (1.6-8.6); Neutrophils % (auto) 59.8 % (37.0-80.0); Red Blood Cells 3.85 10^6/uL (4.5-5.90); Red Cell Distribution Width 13.6 % (11.8-14.3); White Blood Cell 7.2 10^3/uL (4.4-10.8)
[2022-08-30 12:32] LABS: Albumin 3.9 g/dL (3.4-5.0); Calcium 8.4 mg/dL (8.5-10.1); Potassium 3.4 mmol/L (3.5-5.1)
[2022-08-30 12:37] LABS: BUN/Creatinine Ratio 7.5 (10.0-20.0); Bilirubin, Total 0.4 mg/dL (0.2-1.0); Total Protein 6.1 g/dL (6.4-8.2)
[2022-08-30] MEDS ORDERED: POTASSIUM EFFERVESENT TAB 25 MEQ PO ONE (14:30)
[2022-08-30 14:36] VITALS: BP 164/83
== END 2022-08-30 14:42 | disposition home or self-care (01) ==
LOC: ER 11:38
DX: S46.911A Strain of unspecified muscle, fascia and tendon at shoulder and upper arm level, right arm, initial encounter (principal); E87.6 Hypokalemia; I10 Essential (primary) hypertension; I25.2 Old myocardial infarction; E11.9 Type 2 diabetes mellitus without complications; E78.5 Hyperlipidemia, unspecified; K21.9 Gastro-esophageal reflux disease without esophagitis; F17.210 Nicotine dependence, cigarettes, uncomplicated; Z79.82 Long term (current) use of aspirin; Z79.899 Other long term (current) drug therapy; X58.XXXA Exposure to other specified factors, initial encounter; Y93.89 Activity, other specified; Y92.89 Other specified places as the place of occurrence of the external cause; Y99.8 Other external cause status
CPT/HCPCS: 36415; 80053; 83880; 84484; 85025

== ENCOUNTER 2023-05-29 11:12 | Inpatient (IN) | payer OTHER ==
[~2023-05-29] VITALS: Ht 162.6 cm; Wt 85.6 kg
[2023-05-29 12:26] LABS: Basophils # (auto) 0 10 ^3/uL (0-0.2); Basophils % (auto) 0.2 % (0.0-2.0); Eosinophils # (auto) 0.1 10 ^3/uL (0-0.8); Hematocrit 34.1 % (41.0-53.0); Hemoglobin 12.1 g/dL (13.5-17.5); Lymphocytes # (auto) 1.1 10 ^3/uL (0.4-5.4); Mean Corpuscular Hemoglobin 28.5 pg (28.0-32.0); Mean Corpuscular Hgb Conc. 35.6 g/dL (32.0-36.0); Mean Corpuscular Volume 80.3 fL (80.0-100.0); Monocytes # (auto) 0.5 10 ^3/uL (0-1.3); Monocytes % (auto) 5.2 % (0.0-12.0); Neutrophils # (auto) 7.9 10 ^3/uL (1.6-8.6); Neutrophils % (auto) 82.6 % (37.0-80.0); Red Blood Cells 4.25 10^6/uL (4.5-5.90); Red Cell Distribution Width 12.7 % (11.8-14.3); White Blood Cell 9.6 10^3/uL (4.4-10.8)
[2023-05-29 12:39] LABS: INR 1.16 (0.9-1.15); Prothrombin Time 12.1 sec (9.3-11.8)
[2023-05-29 12:44] LABS: Alanine Aminotransferase 33 U/L (7-40); Albumin 4.1 g/dL (3.2-4.8); Alkaline Phosphatase 73 U/L (46-116); Anion Gap 6 (5-15); Aspartate Aminotransferase 26 U/L (13-40); BUN/Creatinine Ratio 7.2 (10.0-20.0); Bilirubin, Total 0.3 mg/dL (0.2-1.0); Blood Urea Nitrogen 10 mg/dL (9-23); Calcium 9.1 mg/dL (8.5-10.1); Carbon Dioxide 25 mmol/L (20-30); Chloride 96 mmol/L (98-107); Glucose 111 mg/dL (74-106); Potassium 3.7 mmol/L (3.5-5.1); Sodium 127 mmol/L (136-145); Total Protein 5.6 g/dL (5.7-8.2)
[2023-05-29 12:47] LABS: Base Excess -5.2 mmol/L (-2.0-2.0)
[2023-05-29] MEDS: SODIUM CHLORIDE 0.9% 1,000 ML IV ONE ×2 (12:56→19:14)
[2023-05-29 13:44] LABS: Acetaminophen < 2.0 UG/ML (10.0-20.0)
[2023-05-29 13:57] LABS: Salicylate < 3.0 mg/dL (2.8-20.0)
[2023-05-29 14:17] LABS: Amphetamine Screen, Urine Neg (NEGATIVE); Barbiturate Scree,Urine Neg (NEGATIVE); Benzodiazephine Screen, Urine Neg (NEGATIVE); Cannabinoid Screen, Urine Neg (NEGATIVE); Cocaine Screen, Urine Neg (NEGATIVE); Opiate Scree,Urine Neg (NEGATIVE); Phencyclidine Screen, Urine Neg (NEGATIVE)
[2023-05-29] MEDS ORDERED: CLON0.2T PO (15:25)
[2023-05-29] MEDS ORDERED: LINA145C PO (15:25)
[2023-05-29] MEDS ORDERED: PALI234I IM (15:25)
[2023-05-29] MEDS ORDERED: FENO145T27 OR (15:26)
[2023-05-29] MEDS ORDERED: BUPR150T8 PO (15:26)
[2023-05-29] MEDS ORDERED: HYDR50TA32 PO (15:28)
[2023-05-29] MEDS: SODIUM CHLORIDE 0.9% 1,000 ML IV SCH (16:00)
[2023-05-29] MEDS ORDERED: DOCUSATE SOD 100 MG CAP PO PRN (16:00)
[2023-05-29] MEDS ORDERED: ACETAMINOPHEN 325 MG TAB PO PRN (16:00)
[2023-05-29] MEDS ORDERED: NITROGLYCERIN 0.4 MG SL TAB SL PRN (16:00)
[2023-05-29] MEDS ORDERED: MORPHINE SULFATE INJ 2 MG/ml SYRG IV PRN (16:00)
[2023-05-29] MEDS ORDERED: ONDANSETRON HCL 4 MG/2 ML VIAL IV PRN (16:00)
[2023-05-29] MEDS ORDERED: BENZ1TAB6 PO (16:13)
[2023-05-29] MEDS ORDERED: HYDR1CAP27 PO (16:13)
[2023-05-29] MEDS ORDERED: GABA-1250 PO (16:13)
[2023-05-29] MEDS ORDERED: PALI1TAB PO (16:13)
[2023-05-29 19:40] VITALS: PULSE 53; RESP 17; O2SAT 98
[2023-05-29] MEDS: OMEPRAZOLE-SOD BICARB 20 MG POWDER PO SCH (22:00)
[2023-05-30 06:04] LABS: Alanine Aminotransferase 28 U/L (7-40); Albumin 3.9 g/dL (3.2-4.8); Alkaline Phosphatase 67 U/L (46-116); Anion Gap 7 (5-15); Calcium 9.3 mg/dL (8.7-10.4); Carbon Dioxide 24 mmol/L (20-30); Chloride 105 mmol/L (98-107); Glucose 110 mg/dL (74-106); Potassium 3.9 mmol/L (3.5-5.1); Sodium 136 mmol/L (136-145)
[2023-05-30 06:05] LABS: Aspartate Aminotransferase 15 U/L (13-40); BUN/Creatinine Ratio 7.4 (10.0-20.0); Bilirubin, Total 0.3 mg/dL (0.2-1.0); Blood Urea Nitrogen 10 mg/dL (9-23); Total Protein 5.7 g/dL (5.7-8.2)
[2023-05-30 06:07] LABS: Basophils # (auto) 0 10 ^3/uL (0-0.2); Basophils % (auto) 0.3 % (0.0-2.0); Eosinophils # (auto) 0.2 10 ^3/uL (0-0.8); Eosinophils % (auto) 2.4 % (0.0-7.0); Hematocrit 34.5 % (41.0-53.0); Hemoglobin 12.2 g/dL (13.5-17.5); Lymphocytes # (auto) 1.7 10 ^3/uL (0.4-5.4); Lymphocytes % (auto) 26.2 % (10.0-50.0); Mean Corpuscular Hgb Conc. 35.5 g/dL (32.0-36.0); Mean Corpuscular Volume 81.8 fL (80.0-100.0); Monocytes # (auto) 0.5 10 ^3/uL (0-1.3); Monocytes % (auto) 7.4 % (0.0-12.0); Neutrophils # (auto) 4.2 10 ^3/uL (1.6-8.6); Neutrophils % (auto) 63.7 % (37.0-80.0); Nucleated Red Blood Cells % 0.1 %; Red Blood Cells 4.22 10^6/uL (4.5-5.90); Red Cell Distribution Width 13.2 % (11.8-14.3); White Blood Cell 6.6 10^3/uL (4.4-10.8)
[2023-05-30 07:25] VITALS: O2SAT 98
[2023-05-30] MEDS: FENOFIBRATE 160MG TABLET PO SCH (08:59)
[2023-05-30] MEDS: ASPirin-EC 81 mg tab PO SCH (08:59)
[2023-05-30] MEDS: PANTOPRAZOLE 40 MG TAB PO SCH (22:05)
[2023-05-31 06:10] LABS: Basophils # (auto) 0 10 ^3/uL (0-0.2); Basophils % (auto) 0.5 % (0.0-2.0); Eosinophils # (auto) 0.3 10 ^3/uL (0-0.8); Eosinophils % (auto) 4.9 % (0.0-7.0); Hematocrit 35.1 % (41.0-53.0); Hemoglobin 12.4 g/dL (13.5-17.5); Lymphocytes # (auto) 2.4 10 ^3/uL (0.4-5.4); Lymphocytes % (auto) 37.6 % (10.0-50.0); Mean Corpuscular Hemoglobin 28.9 pg (28.0-32.0); Mean Corpuscular Hgb Conc. 35.3 g/dL (32.0-36.0); Mean Corpuscular Volume 81.8 fL (80.0-100.0); Monocytes # (auto) 0.6 10 ^3/uL (0-1.3); Monocytes % (auto) 8.8 % (0.0-12.0); Neutrophils # (auto) 3.1 10 ^3/uL (1.6-8.6); Neutrophils % (auto) 48.2 % (37.0-80.0); Nucleated Red Blood Cells % 0.1 %; Red Blood Cells 4.29 10^6/uL (4.5-5.90); Red Cell Distribution Width 12.8 % (11.8-14.3); White Blood Cell 6.4 10^3/uL (4.4-10.8)
[2023-05-31 06:27] LABS: Alanine Aminotransferase 26 U/L (7-40); Alkaline Phosphatase 65 U/L (46-116); Anion Gap 6 (5-15); Aspartate Aminotransferase 13 U/L (13-40); BUN/Creatinine Ratio 9.5 (10.0-20.0); Bilirubin, Total 0.4 mg/dL (0.2-1.0); Blood Urea Nitrogen 12 mg/dL (9-23); Calcium 9.8 mg/dL (8.7-10.4); Carbon Dioxide 26 mmol/L (20-30); Chloride 103 mmol/L (98-107); Glucose 100 mg/dL (74-106); Magnesium 1.3 mg/dL (1.6-2.6); Potassium 4.1 mmol/L (3.5-5.1); Sodium 135 mmol/L (136-145)
[2023-05-31 07:20] VITALS: PULSE 65; RESP 14; O2SAT 97
[2023-05-31 16:00] VITALS: BP 138/79; PULSE 70; RESP 18; TEMP 98.2; O2SAT 97
== END 2023-05-31 16:05 | disposition home or self-care (01) | DRG 917 ==
LOC: ER 11:12 → TELE 16:13
PROVIDERS: ADMIT Nurse Practitioner Family; ATTEND Internal Medicine Geriatric Medicine
DX: T50.901A Poisoning by unspecified drugs, medicaments and biological substances, accidental (unintentional), initial encounter (principal); G93.41 Metabolic encephalopathy; E44.1 Mild protein-calorie malnutrition; E87.1 Hypo-osmolality and hyponatremia; I95.9 Hypotension, unspecified; R00.1 Bradycardia, unspecified; F32.A Depression, unspecified; R63.1 Polydipsia; F20.9 Schizophrenia, unspecified; R11.2 Nausea with vomiting, unspecified; F41.9 Anxiety disorder, unspecified; K74.60 Unspecified cirrhosis of liver; E78.5 Hyperlipidemia, unspecified; F17.210 Nicotine dependence, cigarettes, uncomplicated; E11.22 Type 2 diabetes mellitus with diabetic chronic kidney disease; I12.9 Hypertensive chronic kidney disease with stage 1 through stage 4 chronic kidney disease, or unspecified chronic kidney disease; K21.9 Gastro-esophageal reflux disease without esophagitis; Z68.32 Body mass index [BMI] 32.0-32.9, adult; I25.2 Old myocardial infarction; Z87.11 Personal history of peptic ulcer disease; Z83.3 Family history of diabetes mellitus; Z82.49 Family history of ischemic heart disease and other diseases of the circulatory system; N18.2 Chronic kidney disease, stage 2 (mild)
CPT/HCPCS: 36415; 36600; 70450; 71045; 76705; 78226; 80053; 80307; 80320; 80329; 82140; 82805; 83605; 83690; 83735; 84484; 85025; 85610; 93005; 93306; 93886; 96360; 99291; G0378

== ENCOUNTER 2023-08-18 05:26 | Emergency (ER) | payer OTHER ==
[~2023-08-18] VITALS: Ht 160 cm; Wt 82.8 kg
[~2023-08-18 05:26] MED LIST changes: +BENZ1TAB6 PO; +BUPR150T8 PO; +CLON0.2T PO; +GABA-1250 PO; +HYDR1CAP27 PO; +LINA145C PO; -PALI156I IM; +PALI1TAB PO; +PALI234I IM
[2023-08-18] MEDS ORDERED: ZOFR4T PO (07:31)
[2023-08-18 07:35] VITALS: BP 146/92; PULSE 72; RESP 17; TEMP 97.9; O2SAT 98
[2023-08-18] MEDS: ONDANSETRON ODT 4 MG TAB PO ONE (07:42)
== END 2023-08-18 07:57 | disposition home or self-care (01) ==
LOC: ER 05:26
DX: S06.0X0A Concussion without loss of consciousness, initial encounter (principal); E11.9 Type 2 diabetes mellitus without complications; K21.9 Gastro-esophageal reflux disease without esophagitis; E78.5 Hyperlipidemia, unspecified; I10 Essential (primary) hypertension; W22.8XXA Striking against or struck by other objects, initial encounter; Y93.89 Activity, other specified; Y92.89 Other specified places as the place of occurrence of the external cause; Y99.8 Other external cause status
CPT/HCPCS: 70450; 99284; Q0162

== ENCOUNTER 2023-08-28 16:07 | Emergency (ER) | payer OTHER ==
[~2023-08-28] VITALS: Ht 165.1 cm; Wt 80.5 kg
[~2023-08-28 16:07] MED LIST changes: +ZOFR4T PO
[2023-08-28 17:02] LABS: Basophils # (auto) 0 10 ^3/uL (0-0.2); Basophils % (auto) 0.6 % (0.0-2.0); Eosinophils # (auto) 0.3 10 ^3/uL (0-0.8); Eosinophils % (auto) 3.4 % (0.0-7.0); Hemoglobin 13.3 g/dL (13.5-17.5); Lymphocytes # (auto) 2.8 10 ^3/uL (0.4-5.4); Lymphocytes % (auto) 34.1 % (10.0-50.0); Mean Corpuscular Hemoglobin 28.2 pg (28.0-32.0); Mean Corpuscular Hgb Conc. 35.1 g/dL (32.0-36.0); Mean Corpuscular Volume 80.6 fL (80.0-100.0); Monocytes # (auto) 0.8 10 ^3/uL (0-1.3); Monocytes % (auto) 9.9 % (0.0-12.0); Neutrophils # (auto) 4.2 10 ^3/uL (1.6-8.6); Nucleated Red Blood Cells % 0.1 %; Red Blood Cells 4.71 10^6/uL (4.5-5.90); Red Cell Distribution Width 13.1 % (11.8-14.3); White Blood Cell 8.1 10^3/uL (4.4-10.8)
[2023-08-28 17:25] LABS: Alanine Aminotransferase 24 U/L (7-40); Albumin 4.2 g/dL (3.2-4.8); Alkaline Phosphatase 74 U/L (46-116); Anion Gap 4 (5-15); Aspartate Aminotransferase 14 U/L (13-40); BUN/Creatinine Ratio 5.5 (10.0-20.0); Blood Urea Nitrogen 6 mg/dL (9-23); Calcium 9.7 mg/dL (8.7-10.4); Carbon Dioxide 26 mmol/L (20-30); Chloride 98 mmol/L (98-107); Glucose 90 mg/dL (74-106); Lipase 43 U/L (12-53); Potassium 3.8 mmol/L (3.5-5.1); Sodium 128 mmol/L (136-145)
[2023-08-28 17:26] LABS: Bilirubin, Total 0.2 mg/dL (0.2-1.0); Total Protein 6.2 g/dL (5.7-8.2)
[2023-08-28 17:59] LABS: Urine Bacteria None Seen /hpf (None Seen); Urine WBC None Seen /hpf (0 - 3)
[2023-08-28 18:16] LABS: Urine Blood Negative /uL (Negative); Urine Clarity Clear (Clear); Urine Color Colorless (Yellow); Urine Protein, UAD Negative (Negative); Urine Specific Gravity 1.002 (1.001-1.035); Urine Urobilinogen Normal (Negative); Urine pH 5.5 (5.0-9.0)
[2023-08-28] MEDS ORDERED: DICY10CA PO (19:36)
[2023-08-28] MEDS ORDERED: ZOFR4T PO (19:36)
[2023-08-28] MEDS ORDERED: SODIUM CHLORIDE 0.9% 1,000 ML IV ONE (19:45)
[2023-08-28] MEDS: DICYCLOMINE HCL (10MG/ML) 2 ML AMPULE IM ONE (20:12)
[2023-08-28] MEDS: ONDANSETRON ODT 4 MG TAB PO ONE (20:12)
[2023-08-28 20:19] VITALS: BP 135/79; PULSE 70; RESP 18; TEMP 97.6; O2SAT 97
== END 2023-08-28 20:19 | disposition home or self-care (01) ==
LOC: ER 16:07
DX: E87.1 Hypo-osmolality and hyponatremia (principal); R10.9 Unspecified abdominal pain; R11.2 Nausea with vomiting, unspecified
CPT/HCPCS: 36415; 74176; 80053; 81001; 83690; 85025; 96372; 99285; J0500; Q0162

== ENCOUNTER 2024-01-08 12:23 | Inpatient (IN) | payer OTHER ==
[~2024-01-08] VITALS: Ht 160 cm; Wt 79.9 kg
[~2024-01-08 12:23] MED LIST changes: +DICY10CA PO; -PALI1TAB PO; +PALI6TAB PO
[2024-01-08 13:51] LABS: Urine Bacteria None Seen /hpf (None Seen); Urine WBC None Seen /hpf (0 - 3)
[2024-01-08 14:02] LABS: Urine Blood Negative /uL (Negative); Urine Clarity Clear (Clear); Urine Color Colorless (Yellow); Urine Protein, UAD Negative (Negative); Urine Specific Gravity 1.003 (1.001-1.035); Urine Urobilinogen Normal (Negative)
[2024-01-08 15:26] LABS: Basophils # (auto) 0 10 ^3/uL (0-0.2); Eosinophils # (auto) 0.2 10 ^3/uL (0-0.8); Lymphocytes # (auto) 2.2 10 ^3/uL (0.4-5.4); Monocytes # (auto) 0.6 10 ^3/uL (0-1.3); Neutrophils # (auto) 3.9 10 ^3/uL (1.6-8.6); Nucleated Red Blood Cells % 0.1 %; Platelet Count (auto) 239 10^3/uL (140-450)
[2024-01-08 15:27] LABS: Basophils % (auto) 0.4 % (0.0-2.0); Eosinophils % (auto) 3.6 % (0.0-7.0); Hematocrit 33.5 % (41.0-53.0); Hemoglobin 12.4 g/dL (13.5-17.5); Lymphocytes % (auto) 31.3 % (10.0-50.0); Mean Corpuscular Hemoglobin 29.4 pg (28.0-32.0); Mean Corpuscular Volume 79.2 fL (80.0-100.0); Monocytes % (auto) 8.2 % (0.0-12.0); Neutrophils % (auto) 56.5 % (37.0-80.0); Red Blood Cells 4.23 10^6/uL (4.5-5.90); Red Cell Distribution Width 13.3 % (11.8-14.3); White Blood Cell 6.9 10^3/uL (4.4-10.8)
[2024-01-08 15:32] LABS: Mean Corpuscular Hgb Conc. 37.1 g/dL (32.0-36.0)
[2024-01-08 15:44] LABS: Alanine Aminotransferase 20 U/L (7-40); Alkaline Phosphatase 70 U/L (46-116); Anion Gap 2 (5-15); Aspartate Aminotransferase 15 U/L (13-40); BUN/Creatinine Ratio 5.8 (10.0-20.0); Bilirubin, Total 0.4 mg/dL (0.2-1.0); Blood Urea Nitrogen 7 mg/dL (9-23); Calcium 9.2 mg/dL (8.7-10.4); Carbon Dioxide 30 mmol/L (20-31); Chloride 87 mmol/L (98-107); Glucose 114 mg/dL (74-106); Lipase 32 U/L (12-53); Potassium 3.5 mmol/L (3.5-5.1); Total Protein 5.6 g/dL (5.7-8.2)
[2024-01-08 15:47] LABS: Sodium 119 mmol/L (136-145)
[2024-01-08 17:16] VITALS: PULSE 58; RESP 23; O2SAT 99
[2024-01-08] MEDS ORDERED: hydrALAZINE HCL 20 MG/ML VL IV PRN (17:45)
[2024-01-08] MEDS ORDERED: DEXTROSE (50%) 50ML SYRG IV PRN (17:45)
[2024-01-08] MEDS ORDERED: HYDROcodone-ACET 5/325MG TAB PO PRN (17:45)
[2024-01-08] MEDS ORDERED: MORPHINE SULFATE INJ 2 MG/ml SYRG IV PRN ×2 (17:45→19:30)
[2024-01-08] MEDS ORDERED: DOCUSATE SOD 100 MG CAP PO PRN (17:45)
[2024-01-08] MEDS ORDERED: ACETAMINOPHEN 325 MG TAB PO PRN (17:45)
[2024-01-08] MEDS ORDERED: ONDANSETRON HCL 4 MG/2 ML VIAL IV PRN (17:45)
[2024-01-08] MEDS: SODIUM CHL 3% 100 ML IV ONE (18:16)
[2024-01-08 19:20] VITALS: PULSE 62; RESP 24; O2SAT 99
[2024-01-08] MEDS ORDERED: NITROGLYCERIN 0.4 MG SL TAB SL PRN (19:30)
[2024-01-08] MEDS: SODIUM CHLORIDE 0.9% 1,000 ML IV SCH (19:30)
[2024-01-08] MEDS: MAGNESIUM SULFATE 1GM/100ML 100 ML IV SCH (20:54)
[2024-01-08 21:59] LABS: COVID19 ANTIGEN SOFIA FIA NEGATIVE (NEGATIVE)
[2024-01-08] MEDS: ACCU-CHEK COMFORT CURVE STRIP VI SCH (22:00)
[2024-01-08] MEDS: InsuLIN REG 1unit/0.01ml Soln (100units/ml) SC SCH (22:00)
[2024-01-09 01:10] VITALS: BP 110/73; PULSE 61; RESP 18; TEMP 98.9; O2SAT 96
[2024-01-09 05:00] VITALS: BP 130/82; PULSE 67; RESP 18; TEMP 98
[2024-01-09 05:11] LABS: Basophils # (auto) 0 10 ^3/uL (0-0.2); Eosinophils # (auto) 0.2 10 ^3/uL (0-0.8); Monocytes # (auto) 0.6 10 ^3/uL (0-1.3); White Blood Cell 6.2 10^3/uL (4.4-10.8)
[2024-01-09 05:14] LABS: Basophils % (auto) 0.4 % (0.0-2.0); Eosinophils % (auto) 3.3 % (0.0-7.0); Hematocrit 35.3 % (41.0-53.0); Hemoglobin 12.8 g/dL (13.5-17.5); Lymphocytes # (auto) 1.7 10 ^3/uL (0.4-5.4); Lymphocytes % (auto) 27.9 % (10.0-50.0); Mean Corpuscular Hemoglobin 29.4 pg (28.0-32.0); Mean Corpuscular Hgb Conc. 36.4 g/dL (32.0-36.0); Mean Corpuscular Volume 80.7 fL (80.0-100.0); Monocytes % (auto) 8.9 % (0.0-12.0); Neutrophils # (auto) 3.7 10 ^3/uL (1.6-8.6); Neutrophils % (auto) 59.5 % (37.0-80.0); Nucleated Red Blood Cells % 0.1 %; Platelet Count (auto) 262 10^3/uL (140-450); Red Blood Cells 4.37 10^6/uL (4.5-5.90); Red Cell Distribution Width 13.5 % (11.8-14.3)
[2024-01-09 05:26] LABS: Alanine Aminotransferase 19 U/L (7-40); Albumin 3.9 g/dL (3.2-4.8); Alkaline Phosphatase 72 U/L (46-116); Anion Gap 7 (5-15); Aspartate Aminotransferase 12 U/L (13-40); BUN/Creatinine Ratio 5.8 (10.0-20.0); Bilirubin, Total 0.3 mg/dL (0.2-1.0); Blood Urea Nitrogen 7 mg/dL (9-23); Calcium 9.7 mg/dL (8.7-10.4); Carbon Dioxide 28 mmol/L (20-31); Glucose 88 mg/dL (74-106); Potassium 3.3 mmol/L (3.5-5.1); Total Protein 5.9 g/dL (5.7-8.2)
[2024-01-09 05:32] LABS: Chloride 97 mmol/L (98-107); Sodium 132 mmol/L (136-145)
[2024-01-09 08:00] VITALS: PULSE 58; PULSE 86; RESP 18; O2SAT 92
[2024-01-09 08:36] VITALS: BP 137/85; PULSE 66; RESP 18; TEMP 97.9; O2SAT 97
[2024-01-09] MEDS: ASPirin 81 mg TAB PO SCH (10:04)
[2024-01-09] MEDS: FAMOTIDINE (10MG/ML) 2ML VL IV SCH (10:04)
[2024-01-09] MEDS: POTASSIUM CHL 20 Meq TABLET PO ONE (10:15)
[2024-01-09 12:30] VITALS: BP 123/81; PULSE 68; RESP 17; TEMP 98.4; O2SAT 97
== END 2024-01-09 13:30 | disposition home or self-care (01) | DRG 389 ==
LOC: ER 12:23 → TELE 19:24 → TELE-WESTW 23:54
PROVIDERS: ADMIT Nurse Practitioner Family; ATTEND Internal Medicine Geriatric Medicine
DX: K56.41 Fecal impaction (principal); E87.1 Hypo-osmolality and hyponatremia; N18.9 Chronic kidney disease, unspecified; G89.29 Other chronic pain; Z20.822 Contact with and (suspected) exposure to COVID-19; G40.909 Epilepsy, unspecified, not intractable, without status epilepticus; E11.22 Type 2 diabetes mellitus with diabetic chronic kidney disease; E78.5 Hyperlipidemia, unspecified; I12.9 Hypertensive chronic kidney disease with stage 1 through stage 4 chronic kidney disease, or unspecified chronic kidney disease; F20.9 Schizophrenia, unspecified; E87.6 Hypokalemia; Z82.49 Family history of ischemic heart disease and other diseases of the circulatory system; Z87.11 Personal history of peptic ulcer disease; Z83.3 Family history of diabetes mellitus; Z79.899 Other long term (current) drug therapy; F32.A Depression, unspecified; K21.9 Gastro-esophageal reflux disease without esophagitis; F41.9 Anxiety disorder, unspecified
CPT/HCPCS: 36415; 70450; 71045; 74176; 80053; 81001; 82962; 83690; 83735; 84484; 85025; 87426; 93005; G0378; J1815; J3490

== ENCOUNTER 2024-03-22 01:21 | Emergency (ER) | payer MEDICARE, OTHER ==
[~2024-03-22] VITALS: Ht 152.4 cm; Wt 81.8 kg
[~2024-03-22 01:21] MED LIST changes: -BUPR150T8 PO
[2024-03-22] MEDS: DexAMETHasone SOD PHOS 10MG/1ML VIAL INJ IM ONE (04:40)
[2024-03-22] MEDS: KETOROLAC TROMETH 60MG/2ML VIAL IM ONE (04:41)
[2024-03-22] MEDS: HYDROcodone-ACET 5/325MG TAB PO ONE (04:41)
[2024-03-22] MEDS ORDERED: METH-1182 PO (04:43)
--- NOTE | 2024-03-22 04:43 | ED.PDOC ---
Back pain HPI Chief Complaint: Back Pain Time Seen by MD: 01:56 Primary Care Provider: RAÚL Reviewed Notes: Nurses Notes, Medications, Allergies Allergies: Coded Allergies: NO KNOWN ALLERGIES (Verified , 07/25/22) Home Meds Active Scripts Ondansetron Odt 4MG Tab (ZOFRAN PO) 4 Mg Tb, 1 TAB PO Q8HPRN PRN, #10 TAB Needed for nausea vomiting ODT TAB-DISSOLVE IN MOUTH, THEN SWALLOW Prov:CHUNG,NORALDA Q GREY TENDER 08/28/23 Dicyclomine Hcl (BENTYL CAPSULE) 10 Mg Cp, 2 CAP PO Q8HPRN PRN, #30 CAP Needed for abdominal cramping Prov:CHUNG,NORALDA Q GREY TENDER 08/28/23 Ondansetron Odt 4MG Tab (ZOFRAN PO) 4 Mg Tb, 4 MG PO BID, #20 TAB ODT TAB-DISSOLVE IN MOUTH, THEN SWALLOW Prov:KINDRA HUTCHINS PA 08/18/23 Aspirin (Aspirin Low Strength) 81 Mg Chw, 81 MG PO DAILY for 100 Days, #100 TAB.CHEW Prov:VIJAY CASTILLO MD 06/21/21 Reported Medications Benztropine Mesylate (Benztropine Mesylate) 1 Mg Tab, 1 TAB PO BID 05/29/23 Hydroxyzine Pamoate (Hydroxyzine Pamoate) 25 Mg Cap, 2 CAP PO BID 05/29/23 Gabapentin (Gabapentin) 300 Mg Cap, 1 CAP PO TID 05/29/23 Paliperidone (Paliperidone ER) 6 Mg Tab, 1 TAB PO DAILY 05/29/23 Paliperidone Palmitate (Invega Sustenna) 234 Mg/1.5 Ml Inj, IM 05/29/23 Clonidine Hydrochloride (Clonidine Hcl) 0.2 Mg Tab, TAB PO 05/29/23 Linaclotide Base (LINZESS) 145 Mcg Cap, 1 CAP PO DAILY 05/29/23 Chlorthalidone (Chlorthalidone) 25 Mg Tab, 1 TAB PO DAILY 12/09/21 Temazepam (Temazepam) 30 Mg Cap, 1 CAP PO QHSP PRN for FOR INSOMNIA 12/09/21 Clonazepam (Clonazepam) 2 Mg Tab, 1 TAB PO BID 12/09/21 Lisinopril (Lisinopril) 20 Mg Tab, 20 MG PO DAILY for 30 Days, MG 06/19/21 Omeprazole (Omeprazole) 20 Mg Cap, 40 MG PO BID, CAP 06/19/21 Fenofibrate (Fenofibrate) 160 Mg Tab, 1 TAB PO DAILY, #30 TAB 5 Refills 06/19/21 Clonidine Hydrochloride (Clonidine Hcl) 0.2 Mg/24 Hr Dis, 0.2 MG PO QWEEKLY PRN for SBP>160 for 30 Days, MG 06/19/21 Mode of Arrival: EMS Past Medical History PAST MEDICAL HISTORY: Anxiety, CKF, Depression, DM, GERD, High Lipids, HTN, Liver, PUD, Schizophrenia, Seizures Surgical History: Denies all surgeries Family History Family History: Family hx of DM, Family hx of Cancer, Family hx of HTN Social History Smoker: Non-Smoker Alcohol: Heavy Drugs: Denies Drug Use Lives In: Home Was a procedure done? Was a procedure done?: No Back Pain Differential Dx Differential Diagnosis: Fracture, Musculoskeletal Pain X-Ray, Labs, Meds, VS Vital Signs Date Time Temp Pulse Resp B/P (MAP) Pulse Ox O2 Delivery O2 Flow Rate FiO2 03/22/24 01:25 97.8 82 15 146/93 (110) 99 Current Medications Medications (Trade) Dose Ordered Sig/Antonio Route Start Time Stop Time Status Last Admin Dexamethasone Sodium Phosphate (Decadron Injection) 10 mg ONCE ONCE IM 03/22/24 04:15 03/22/24 04:16 DC 03/22/24 04:40 Ketorolac Tromethamine (Toradol Injection) 60 mg ONCE ONCE IM 03/22/24 04:15 03/22/24 04:16 DC 03/22/24 04:41 Acetaminophen/ Hydrocodone Bitart ([place] 5/325MG Tab) 2 tab ONCE ONCE PO 03/22/24 04:15 03/22/24 04:16 DC 03/22/24 04:41 Departure 1 Departure Impression: Primary Impression: Lumbar radiculopathy Disposition: 01 HOME / SELF CARE / HOMELESS Condition: Stable e-Prescriptions Methocarbamol (Methocarbamol) 750 Mg Tab 1 TAB PO HS PRN for 7 Days, #7 TAB Prov: HARIS PINON 03/22/24 Discharged With: Friend Critical Care Note Critical Care Time?: No Stability Stability form required: HARIS Siegel Mar 22, 2024 04:43
[2024-03-22 05:43] VITALS: BP 146/92; PULSE 92; RESP 16; O2SAT 98
== END 2024-03-22 05:50 | disposition home or self-care (01) ==
LOC: EDBD 01:21 → ER 01:21
DX: M54.16 Radiculopathy, lumbar region (principal); K21.9 Gastro-esophageal reflux disease without esophagitis; E78.5 Hyperlipidemia, unspecified; I12.9 Hypertensive chronic kidney disease with stage 1 through stage 4 chronic kidney disease, or unspecified chronic kidney disease; E11.22 Type 2 diabetes mellitus with diabetic chronic kidney disease; N18.9 Chronic kidney disease, unspecified; Z79.82 Long term (current) use of aspirin; Z79.899 Other long term (current) drug therapy
CPT/HCPCS: 96372; 99284; J1100; J1885

== ENCOUNTER 2024-12-12 15:14 | Emergency (ER) | payer OTHER ==
[~2024-12-12] VITALS: Ht 157.5 cm; Wt 91.0 kg
[2024-12-12 15:15] VITALS: BP 149/98; TEMP 97.8
--- NOTE | 2024-12-12 15:41 | ED.PDOC ---
GI ASSESSMENT HPI Comments This is a 49 year old male presenting to the ED with chief complaint of abdominal pain. Patient reports that he has been experiencing diffuse 5/10 abdominal pain with associated nausea, vomiting, dizziness, fever, and chills for the past week. Patient denies any diarrhea, chest pain, SOB, hematemesis, melena, dysuria, or flank pain. Chief Complaint: Abdominal Pain Time Seen by MD: 15:39 Primary Care Provider: RAÚL Reviewed Notes: Nurses Notes, Medications, Allergies Allergies: Coded Allergies: NO KNOWN ALLERGIES (Verified , 07/25/22) Home Meds Active Scripts Ondansetron Odt 4MG Tab (ZOFRAN PO) 4 Mg Tb, 1 TAB PO Q8HPRN PRN, #10 TAB Needed for nausea vomiting ODT TAB-DISSOLVE IN MOUTH, THEN SWALLOW Prov:CHUNGMANUELALDA Q SENIOR MEDIA BUYER 08/28/23 Dicyclomine Hcl (BENTYL CAPSULE) 10 Mg Cp, 2 CAP PO Q8HPRN PRN, #30 CAP Needed for abdominal cramping Prov:MANUEL CHUNGALDA Q SENIOR MEDIA BUYER 08/28/23 Ondansetron Odt 4MG Tab (ZOFRAN PO) 4 Mg Tb, 4 MG PO BID, #20 TAB ODT TAB-DISSOLVE IN MOUTH, THEN SWALLOW Prov:KINDRA HUTCHINS 08/18/23 Aspirin (Aspirin Low Strength) 81 Mg Chw, 81 MG PO DAILY for 100 Days, #100 TAB.CHEW Prov:VIJAY CASTILLO MD 06/21/21 Reported Medications Benztropine Mesylate (Benztropine Mesylate) 1 Mg Tab, 1 TAB PO BID 05/29/23 Hydroxyzine Pamoate (Hydroxyzine Pamoate) 25 Mg Cap, 2 CAP PO BID 05/29/23 Gabapentin (Gabapentin) 300 Mg Cap, 1 CAP PO TID 05/29/23 Paliperidone (Paliperidone ER) 6 Mg Tab, 1 TAB PO DAILY 05/29/23 Paliperidone Palmitate (Invega Sustenna) 234 Mg/1.5 Ml Inj, IM 05/29/23 Clonidine Hydrochloride (Clonidine Hcl) 0.2 Mg Tab, TAB PO 05/29/23 Linaclotide Base (LINZESS) 145 Mcg Cap, 1 CAP PO DAILY 05/29/23 Chlorthalidone (Chlorthalidone) 25 Mg Tab, 1 TAB PO DAILY 12/09/21 Temazepam (Temazepam) 30 Mg Cap, 1 CAP PO QHSP PRN for FOR INSOMNIA 12/09/21 Clonazepam (Clonazepam) 2 Mg Tab, 1 TAB PO BID 12/09/21 Lisinopril (Lisinopril) 20 Mg Tab, 20 MG PO DAILY for 30 Days, MG 06/19/21 Omeprazole (Omeprazole) 20 Mg Cap, 40 MG PO BID, CAP 06/19/21 Fenofibrate (Fenofibrate) 160 Mg Tab, 1 TAB PO DAILY, #30 TAB 5 Refills 06/19/21 Clonidine Hydrochloride (Clonidine Hcl) 0.2 Mg/24 Hr Dis, 0.2 MG PO QWEEKLY PRN for SBP>160 for 30 Days, MG 06/19/21 Information Source: Patient, Relative (Child) Mode of Arrival: Ambulatory Timing: Weeks Duration: Since onset Prehospital treatment: None Quality: Aching Vomitus: Watery Stool: Normal Severity: Moderate Recent: None Recent Hx of: Liver Disease Pain Location: Diffuse Modifying Factors: Nothing Associated sign and symptoms: Nausea, Vomiting, Abdominal Pain Past Medical History PAST MEDICAL HISTORY: Anxiety, CKF, Depression, DM, GERD, High Lipids, HTN, Liver, PUD, Schizophrenia, Seizures Surgical History: Denies all surgeries Family History Family History: Family hx of DM, Family hx of Cancer, Family hx of HTN Social History Smoker: Non-Smoker Alcohol: Occasionally Drugs: Denies Drug Use Lives In: Home Constitutional: reports: chills, fever; denies: diaphoresis, fatigue, malaise, sweats, weakness, others EENTM: denies: blurred vision, double vision, ear bleeding, ear discharge, ear drainage, ear pain, ear ringing, eye pain, eye redness, hearing loss, mouth pain, mouth swelling, nasal discharge, nose bleeding, nose congestion, nose pain, photophobia, tearing, throat pain, throat swelling, voice changes, others Respiratory: denies: cough, hemoptysis, orthopnea, SOB at rest, shortness of breath, SOB with excertion, stridor, wheezing, others Cardiovascular: denies: chest pain, dizzy spells, diaphoresis, Dyspnea on exertion, edema, irregular heart beat, left arm pain, lightheadedness, palpi tations, PND, syncope, others Gastrointestinal: reports: abdominal pain, nausea, vomiting; denies: abdomen distended, blood streaked bowels, constipated, diarrhea, dysphagia, difficulty swallowing, hematemesis, melena, poor appetite, poor fluid intake, rectal bleeding, rectal pain, others Genitourinary: denies: burning, dysuria, flank pain, frequency, hematuria, incontinence, penile discharge, penile sore, pain, testicle pain, testicle swelling, urgency, others Neurological: reports: dizziness; denies: fainting, headache, left sided numbness, left sided weakness, numbness, paresthesia, pre-existing deficit, rig ht sided numbness, right sided weakness, seizure, speech problems, tingling, tremors, weakness, others Musculoskeletal: denies: back pain, gout, joint pain, joint swelling, muscle pain, muscle stiffness, neck pain, others Integumetry: denies: bruises, change in color, change in hair/nails, dryness, laceration, lesions, lumps, rash, wounds, others Allergic/Immunocompromised: denies: Difficulty Healing, Frequent Infections, Hives, Itching, others Hematologic/Lymphatic: denies: anemia, blood clots, easy bleeding, easy bruising, swollen glands, others Endocrine: denies: excessive hunger, excessive sweating, excessive thirst, excessive urination, flushing, intolerance to cold, intolerance to heat, unexplained weight gain, unexplained weight loss, others Psychiatric: denies: anxiety, bipolar disorder, depression, hopeless, panic disorder, schizophrenia, sleepless, suicidal, others All Other Systems: Reviewed and Negative Physical Exam General Appearance: Moderate Distress, Obese HEENT: Normal ENT Inspection, Pharynx Normal, TMs Normal Neck: Full Range of Motion, Non-Tender, Normal, Normal Inspection Respiratory: Chest Non-Tender, Lungs Clear, No Accessory Muscle Use, No Respiratory Distress, Normal Breath Sounds Cardiovascular: No Edema, No JVD, No Murmur, No Gallop, Normal Peripheral Pulses Breast Exam: Deferred Gastrointestinal: Distended, Hepatomegaly, No Pulsatile Mass, Normal Bowel Sounds, Soft Genitalia: Deferred Pelvic: Deferred Rectal: Deferred Extremities: No calf tenderness, Normal capillary refill, Pedal edema Musculoskeletal : Apperance: Normal Neurologic: Alert, design inserter II-XII nml as Tested, Motor Weakness, Normal Affect, Normal Mood, No Sensory Deficits Cerebellar Function: Normal Reflexes: Normal Skin: Dry, Normal Color, Warm Lymphatic: No Adenopathy EKG EKG : Pulse Rate (adult): 57 [place]: Normal Cardiac Rhythm: SB ST: Nonsp Was a procedure done? Was a procedure done?: No GI differential Dx Differential Diagnosis: Diverticular disease, Gastritis/PUD, Gastroenteritis, Inflammatory BD, Pancreatitis, UTI, Electrolyte Imbalance, Food Poisoning X-Ray, Labs, Meds, VS Vital Signs Date Time Temp Pulse Resp B/P (MAP) Pulse Ox O2 Delivery O2 Flow Rate FiO2 12/12/24 16:35 57 12/12/24 15:23 57 12/12/24 15:15 97.8 55 18 149/98 96 97.8 Lab Test 12/12/24 16:31 12/12/24 16:05 Range/Units Urine Color Colorless Yellow Urine Clarity Clear Clear Urine pH 6.5 5.0-9.0 Urine Specific [place] 1.002 1.001-1.035 Urine Protein Negative Negative Urine Ketones Negative Negative Urine Blood Negative Negative /uL Urine Nitrite Negative Negative Urine Bilirubin Negative Negative Urine Urobilinogen Normal Negative mg/dL Urine Leukocyte Esterase Negative Negative /uL Urine RBC None seen 0 - 3 /hpf Urine Microscopic WBC < 1 0-3 /HPF Urine Squamous Epithelial Cells None seen <5 /hpf Urine Bacteria Few H None Seen /hpf Urine Glucose Normal Normal mg/dL White Blood Count 8.2 4.4-10.8 10^3/uL Red Blood Count 4.17 L 4.5-5.90 10^6/uL Hemoglobin 11.7 L 13.5-17.5 g/dL Hematocrit 32.2 L 41.0-53.0 % Mean Corpuscular Volume 77.1 L 80.0-100.0 fL Mean Corpuscular Hemoglobin 28.0 28.0-32.0 pg Mean Corpuscular Hemoglobin Concent 36.3 H 32.0-36.0 g/dL Red Cell Distribution Width 12.6 11.8-14.3 % Platelet Count 248 140-450 10^3/uL Mean Platelet Volume 6.7 L 6.9-10.8 fL Neutrophils (%) (Auto) 49.9 37.0-80.0 % Lymphocytes (%) (Auto) 35.7 10.0-50.0 % Monocytes (%) (Auto) 7.8 0.0-12.0 % Eosinophils (%) (Auto) 6.1 0.0-7.0 % Basophils (%) (Auto) 0.5 0.0-2.0 % Neutrophils # (Auto) 4.1 1.6-8.6 10 ^3/uL Lymphocytes # (Auto) 2.9 0.4-5.4 10 ^3/uL Monocytes # (Auto) 0.6 0-1.3 10 ^3/uL Eosinophils # (Auto) 0.5 0-0.8 10 ^3/uL Basophils # (Auto) 0 0-0.2 10 ^3/uL Nucleated Red Blood Cells 0.1 % Prothrombin Time 11.8 9.3-11.8 sec Prothrombin Time INR 1.13 0.9-1.15 Activated Partial Thromboplast Time 27.9 24.5-34.5 SEC Sodium Level 123 L 136-145 mmol/L Potassium Level 4.1 3.5-5.1 mmol/L Chloride Level 89 L 98-107 mmol/L Carbon Dioxide Level 25 20-31 mmol/L Anion Gap 9 5-15 Blood Urea Nitrogen 5 L 9-23 mg/dL Creatinine 1.12 0.700-1.30 mg/dL Glomerular Filtration Rate Calc 80 >90 mL/min BUN/Creatinine Ratio 4.5 L 10.0-20.0 Serum Glucose 108 H 74-106 mg/dL Calcium Level 8.6 L 8.7-10.4 mg/dL Total Bilirubin 0.3 0.2-1.0 mg/dL Aspartate Amino Transferase (AST) 29 13-40 U/L Alanine Aminotransferase (ALT) 30 7-40 U/L Alkaline Phosphatase 73 46-116 U/L Ammonia 23 11-32 umol/L Total Protein 6.0 5.7-8.2 g/dL Albumin 4.0 3.2-4.8 g/dL Lipase 31 12-53 U/L The CBC is within normal limits. The chemistry panel is within normal limits The INR is 1.13 The EKG shows [address] changes. CAT scan of the abdomen and pelvis shows: IMPRESSION: Limited evaluation without contrast. Fluid distention large bowel loops could represent diarrheal state, colitis. Atherosclerotic disease. No hydronephrosis /nephrolithiasis. IV Hep-Lock was established The patient was given morphine 2 mg IV push The patient was given Zofran 4 mg IV push The patient is being admitted at this time Images Reviewed?: Images reviewed and evaluated by me Time of 1ST Reevaluation: 16:35 Reevaluation 1ST: Unchanged Patient Education/Counseling: Diagnosis, Treatment, Prognosis Family Education/Counseling: Diagnosis, Treatment, Prognosis SEPSIS Sepsis Screen Date sepsis recognized/suspect: Dec 12, 2024 Time Sepsis recognized/suspect: 1516 Recent Procedure: No On Antibiotic Therapy: No Respiratory Rate >20: No Heart Rate >90: No Temp<36 C (96.8 F) or >38.3 C: No SBP <90 or MAP <65 mmHG: No New Acute Mental Status Change: No Is the patient on CPAP, BIPAP,: No Physician Orders Ct Ab Pel Wo Con-No Oral Or Iv (12/12/24 15:39) [place] Iv (12/12/24 15:39) Electrocardigram (12/12/24 16:33) Vital Signs Date Time Temp Pulse Resp B/P (MAP) Pulse Ox O2 Delivery O2 Flow Rate FiO2 12/12/24 16:35 57 12/12/24 15:23 57 12/12/24 15:15 97.8 55 18 149/98 96 97.8 Laboratory Tests Test 12/12/24 16:05 White Blood Count 8.2 10^3/uL (4.4-10.8) Departure 1 Departure Time of Disposition: 18:24 Impression: Primary Impression: Intractable abdominal pain Disposition: 09 ADMITTED INPATIENT Admit to: Med Surg Condition: Fair Critical Care Note Critical Care Time?: No Stability Stability form required: Yes Unstable for transfer: ED Physician Assesment (Clinical assesment) Heart Score Heart Score: Heart Score Response (Comments) Value History N/A 0 EKG N/A 0 Age N/A 0 Risk Factors N/A 0 Troponin N/A 0 Total 0 I personally scribed for GERRI RANGEL MD ([email or web address]) on 12/12/24 at 15:41. Electronically submitted by Emmanuel Brambila ([email or web address]). GERRI RANGEL MD Dec 12, 2024 15:41
[2024-12-12 16:13] LABS: Hematocrit 32.2 % (41.0-53.0); Hemoglobin 11.7 g/dL (13.5-17.5); Mean Corpuscular Hemoglobin 28.0 pg (28.0-32.0); Mean Corpuscular Volume 77.1 fL (80.0-100.0); Nucleated Red Blood Cells % 0.1 %
--- NOTE | 2024-12-12 16:18 | DVH ---
Indication: pain Technique: CT axial images of the abdomen and pelvis are obtained without contrast. Coronal and sagit cassandra reformats were obtained. Radiation Dose Information: CTDI volume is 22 mGy. Dose-length product is 1095 mGy*cm Comparison: CT CT AB PEL WO CON-NO ORAL OR IV on DOS: 01/08/24, CT CT AB PEL WO CON-NO ORAL OR IV on DOS: 08/28/23, CT CT AB PEL WO CON-NO ORAL OR IV on DOS: 07/25/22, CT ABD PELVIS WO CONTRAST on DOS: , ECIDC on DOS: 06/19/21 FINDINGS: There is limited interpretation of the abdomen and pelvis without administration of intravenous contr ast. The lung bases demonstrate no pleural effusion. Adrenal glands, spleen, pancreas and liver unremarkable in shape. No CT evidence for cholelithiasis. No hydronephrosis/ nephrolithiasis. Stomach is partially distended. Small bowel loops are moderately distended. Moderate volume stool throughout the colon. Fluid distention large bowel. Normal appendix. Abdominal aortic atherosclerotic disease. Bladder partially distended. No free pelvic fluid. No ingui nal lymphadenopathy. No aggressive osseous process. [id number] thoracolumbar degenerative disc disease.m Paraumbilical hernia containing fat measuring 2.2 cm IMPRESSION: Limited evaluation without contrast. Fluid distention large bowel loops could represent diarrheal state, colitis. Atherosclerotic disease. No hydronephrosis /nephrolithiasis. Other findings as described.
[2024-12-12 16:28] LABS: INR 1.13 (0.9-1.15); Partial Thromboplastin Time 27.9 SEC (24.5-34.5); Prothrombin Time 11.8 sec (9.3-11.8)
[2024-12-12 16:31] LABS: Alanine Aminotransferase 30 U/L (7-40); Albumin 4.0 g/dL (3.2-4.8); Alkaline Phosphatase 73 U/L (46-116); Anion Gap 9 (5-15); BUN/Creatinine Ratio 4.5 (10.0-20.0); Bilirubin, Total 0.3 mg/dL (0.2-1.0); Carbon Dioxide 25 mmol/L (20-31); Lipase 31 U/L (12-53); Potassium 4.1 mmol/L (3.5-5.1); Total Protein 6.0 g/dL (5.7-8.2)
[2024-12-12 16:32] LABS: Blood Urea Nitrogen 5 mg/dL (9-23); Calcium 8.6 mg/dL (8.7-10.4); Chloride 89 mmol/L (98-107); Glucose 108 mg/dL (74-106); Sodium 123 mmol/L (136-145)
[2024-12-12 16:48] LABS: Urine Protein, UAD Negative (Negative)
[2024-12-12 19:41] VITALS: PULSE 84; RESP 20; O2SAT 98
--- NOTE | 2024-12-13 12:21 | ECG ---
[facility] Test Date: 2024-12-12 Test Time: 15:23:28 Pat Name: DILLON DANIELS TRIPATHI Department: [facility] ED Patient ID: [facility]-[id number] Room: Gender: M Deli Clerk: [place] : 1975 Requested By: GERRI RANGEL Order Number: [id number] Reading MD: Emeka Copeland Measurements Intervals [place] Rate: 57 P: 58 WI: 173 QRS: 18 QRSD: 97 T: 34 QT: 451 QTc: 440 Interpretive Statements Sinus rhythm Abnormal R-wave progression, early transition Abnormal inferior Q waves Baseline wander in lead(s) V6 Electronically Signed On 12-13-2024 12:35:41 PDT by Emeka Copeland Please click the below link to view image of tracing.
== END 2024-12-12 20:51 | disposition left against medical advice (07) ==
LOC: ER 15:14
DX: R10.84 Generalized abdominal pain (principal); I12.9 Hypertensive chronic kidney disease with stage 1 through stage 4 chronic kidney disease, or unspecified chronic kidney disease; E11.22 Type 2 diabetes mellitus with diabetic chronic kidney disease; N18.9 Chronic kidney disease, unspecified; E78.5 Hyperlipidemia, unspecified; F41.9 Anxiety disorder, unspecified; F32.A Depression, unspecified; Z79.82 Long term (current) use of aspirin; Z79.899 Other long term (current) drug therapy
CPT/HCPCS: 36415; 74176; 80053; 81001; 82140; 83690; 85025; 85610; 85730; 93005